=== PATIENT | female | born 1960 | race Caucasian/White ===

== ENCOUNTER 2017-02-27 18:13 | Inpatient (IN) | payer MEDICARE, OTHER ==
--- NOTE | ~2017-02-27 | CO ---
Unit #: [id number] #: [id number] Patient: SIMON BERNSTEIN [id number] [address] [address] [id number] I MR#: [id number] NAME: SIMON BERNSTEIN ROOM: [facility] Age: 57 Sex: F Admission Date: 02/27/2017 : 1960 Attending Physician: Irwin Blake M.D. Primary Care Physician: Edgar Goodrich M.D. CONSULTATION REPORT REASON FOR CONSULTATION Critical care management. CHIEF COMPLAINT Shortness of breath. 57-year-old female with a past medical history of chronic kidney disease, CHF, history of coronary artery disease, LAD has a stent, hypertension, history of chronic cystitis, diabetes mellitus, subarachnoid hemorrhage secondary to aneurysm, back pain, morbid obesity, presents with a complaint of shortness of breath. Was found to have urinary tract infection and CHF exacerbation. Placed on BiPAP. Currently on BiPAP and nitroglycerin drip. I am seeing the patient at bedside, following commands, slightly lethargic. REVIEW OF SYSTEMS Unobtainable because of patient being on BiPAP. PAST MEDICAL HISTORY 1. Hypertension. 2. Chronic kidney disease. 3. Chronic cystitis. 4. History of coronary artery disease. 5. History of subarachnoid hemorrhage. 6. Seizure disorder. 7. Diabetes. 8. Constipation. 9. Back pain. 10. Depression. 11. Morbid obesity. SURGICAL HISTORY 1. Right sided craniotomy. 2. Bilateral tubal ligation. 3. Left shoulder and right shoulder surgery. ALLERGIES No known drug allergies. FAMILY HISTORY Lung cancer, diabetes, hypertension, coronary artery disease. SOCIAL HISTORY Smokes a few cigarettes daily. Does not drink alcohol. Unit #: [id number] #: [id number] Patient: SIMON BERNSTEIN MEDICATIONS 1. Amitiza. 2. Neurontin. 3. Metoprolol. 4. Myrbetriq. 5. Multivitamin. 6. MiraLAX. 7. Aspirin. 8. Plavix. 9. Lasix. 10. Isosorbide. 11. Magnesium. 12. Cymbalta. 13. Esomeprazole. 14. Tradjenta. 15. Claritin. 16. Amlodipine. 17. Calcium. 18. Colace. 19. Alprazolam. 20. Amantadine. 21. Keppra. 22. Zocor. 23. Seroquel. 24. Flomax. 25. Proventil. 26. Percocet. 27. NovoLog. 28. Levemir. PHYSICAL EXAMINATION VITAL SIGNS: Temperature 98, pulse 87, respirations 12, blood pressure 130/70. NEUROLOGICAL: Awake, alert, oriented. No neuro deficit. HEENT: PERRLA. NECK: Supple. No JVD. CHEST: Bilateral air entry, bilateral mild rhonchi. GI: Nontender, soft. Bowel sounds positive. EXTREMITIES: Positive edema. DIAGNOSTIC STUDIES IMAGING: Chest x-ray on admission has shown right sided interstitial and alveolar infiltrates. Findings consistent with acute hypervolemia. LABORATORY: Blood gas - pH of 7.25, pCO2 60, pO2 124, creatinine is 2.7, sodium 135, potassium 4.3. Troponin 0.07, white count 6, hemoglobin 8, hematocrit 28, platelet count 130. ASSESSMENT AND PLAN 1. Acute hypoxic/hypercapnic respiratory failure. 2. Acute exacerbation of congestive heart failure, likely underlying chronic obstructive pulmonary disease. 3. Chronic kidney disease. 4. Sleep apnea. 5. Hypertension. Unit #: [id number] #: [id number] Patient: SIMON BERNSTEIN 6. Rule out myocardial infarction. Plan is to continue patient on BiPAP support and continue oxygen. Continue bronchodilator, GI and DVT prophylaxis. Cardiology consultation. Wean nitroglycerin. Patient will be closely monitored. Please see orders for detailed plan. Thank you very much for the consultation. Will repeat a blood gas and a chest x-ray today. She will need a non-contrast CT of the chest. Thank you very much for this consultation. Dictated by... Linnea Valverde TD: 02/28/2017 12:32 JOB #: [id number] CONSULTATION REPORT Page 1 of 1 X Amanda Duong MD CONSULTATION REPORT
--- NOTE | ~2017-02-27 | CT57 ---
[facility] A Service of [facility] & [facility] RADIOLOGY TEXT RESULTS PATIENT: SIMON BERNSTEIN LOCATION: [address]-19 : [birth year] UNIT #: [id number] AGE: [address]: Irwin Blake MD SEX: F ORDER DR: [id number] [facility] [address] [facility]. [place], [place] [address] [id number] I MR#: [id number] Acc #: [id number] NAME: SIMON BERNSTEIN : 1960 SEX: F STUDY DATE/TIME: 02/28/2017 15:38 UNIT: [facility] ROOM: [facility] STUDY DESCRIPTION: CT Chest Wo Cont Attending Physician: Irwin Blake M.D. Ordering Physician: Amanda Duong M.D. Primary Care Physician: Edgar Goodrich M.D. MEDICAL IMAGING REPORT This report is preliminary unless electronic signature is present EXAM CT of the chest without contrast. HISTORY Chest tightness, short of air since 02/27/17. TECHNIQUE CT of the chest performed without administration of intravenous contrast. No prior CTs of chest for comparison. There are limited views of the lower thorax from CT abdomen pelvis dated 07/12/14. This CT exam was performed with one or more of the following radiation dose reduction techniques: Automatic exposure control, adjustment of mA and/or kV according to patient size, and iterative reconstruction. FINDINGS Thyroid unremarkable. No axillary adenopathy. 1.3 cm short-axis pretracheal node. 9 mm short-axis subcarinal node. Mild cardiac enlargement. Coronary and aortic valvular calcifications. 7 mm short-axis right epiphrenic node. Small bilateral pleural effusions, right greater than left. These are not drainable fluid collections. Visualized liver, gallbladder show no clearly acute abnormality. The liver has a slightly nodular configuration. No focal suspicious abnormality is seen. Correlate with any clinical risk factors for cirrhosis. Very subtle hyperdensity suggested in the partially visualized lower gallbladder segment. This may represent sludge or small gallstone. If clinically warranted, it could be further evaluated with ultrasound. There is no biliary ductal dilatation suggested. The visualized spleen, pancreas, adrenal glands, left kidney notable for what appears to be a partially visualized anterior mid-left renal cyst measuring about 1.9 cm in visualized maximum diameter. Small retrocrural nodes. Small gastrohepatic ligament and portal nodes, largest of the portal nodes is a portocaval node measuring about 1.2 cm in short axis. The lungs show extensive airspace disease in bilateral upper lobes, to a lesser extent in STS. [facility] A Service of [facility] RADIOLOGY TEXT RESULTS PATIENT: SIMON BERNSTEIN LOCATION: [facility]19 : 60 UNIT #: [id number] AGE: [address]: Irwin Blake MD SEX: F ORDER DR: the right middle lobe, and throughout the bilateral lower lobes with some areas of santo airspace consolidation in the inferior right lower lobe. Appearance most suggestive of multifocal tbnsonbi-mn-iusbjz pneumonia. No pneumothorax. No suspicious nodule. There is an incompletely visualized intrathecal catheter, which terminates in the upper thoracic spinal canal. Healing anterior right fifth and sixth and seventh rib fractures. Healing anterior right second rib fracture. Correlate with any known recent trauma. Degenerative changes in the spine but no acute spinal abnormality suggested. IMPRESSION 1. Extensive bilateral airspace disease involving predominantly the bilateral upper lobes and the bilateral lower lobes, with relative sparing of the right middle lobe. Some areas of santo consolidation in the inferior right lower lobe. Appearance suggests multifocal bilateral pneumonia. Follow up to radiographic resolution recommended. 2. Small bilateral pleural effusions. Right greater than left. Not drainable fluid collections. 3. Mediastinal and upper abdominal adenopathy. Favored to be reactive in nature. See solar sales representative locations and sizes in body of report. Attention at followup recommended. 4. Bilateral healing rib fractures. See locations in body of report. No displacement. Correlate with any recent thoracic trauma. 5. Mild cardiac enlargement. 6. Coronary arterial and aortic valvular calcifications. Systemic atherosclerotic arterial calcifications. 7. Slightly nodular contour of the liver. Nonspecific appearance. More pronounced than in 2014. Correlate with any risk factors for cirrhosis. 8. Partial visualization of gallbladder with some questionable high-density material in the gallbladder neck region. This may be artifactual. It could represent gallbladder sludge or tiny gallstone. It could be further evaluated with ultrasound, if felt clinically warranted. 9. Left renal cyst. 10. Not mentioned in body of report, there is subcutaneous fat stranding and haziness in the dependent left lower thoracic/upper abdominal body wall. Nonspecific appearance. No fluid collection. Again, correlate with any known history of trauma. 11. Intrathecal catheter terminating at upper thoracic spine level. Dictated by... Brendon Lee M.D. THIS IS AN ELECTRONICALLY VERIFIED REPORT Brendon Lee M.D. at 03/01/2017 8:13 AM [facility] A Service of [facility] RADIOLOGY TEXT RESULTS PATIENT: SIMON BERNSTEIN LOCATION: [address]19 : [birth year] UNIT #: [id number] AGE: [address]: Irwin Blake MD SEX: F ORDER DR: SEVERO/jaiden TD: 03/01/2017 00:34 JOB #: [id number] MEDICAL IMAGING REPORT Page 1 of 1 COPY
--- NOTE | ~2017-02-27 | EKG ---
PATIENT: SIMON BERNSTEIN UNIT #: [id number] Ventricular Rate: 55 BPM Atrial Rate: 55 BPM P-R Interval: 134 ms QRS Duration: 88 ms Q-T Interval: 458 ms QTC Calculation(Bezet): 438 ms P [place]: 4 degrees Calculated R [place]: 9 degrees Calculated T [place]: -50 degrees Diagnosis Line: Sinus bradycardia Diagnosis Line: Possible Left atrial enlargement Diagnosis Line: Left ventricular hypertrophy Diagnosis Line: Inferior infarct , age undetermined Diagnosis Line: Abnormal ECG Diagnosis Line: When compared with ECG of 01-MAR-2017 05:43, Diagnosis Line: T wave inversion now evident in Lateral leads Diagnosis Line: Confirmed by ULISES IVEY MD ([id number]) on Diagnosis Line: 03/05/2017 3:37:32 PM INTERPRETING MD: EPI
--- NOTE | ~2017-02-27 | CR72 ---
[facility] A Service of [facility] & [facility] RADIOLOGY TEXT RESULTS PATIENT: SIMON BERNSTEIN LOCATION: [facility] 319-01 : [birth year] UNIT #: [id number] AGE: [address]: Lilliam Lynch MD SEX: F ORDER DR: [id number] [facility] [address] [facility]. [place], [place] [address] [id number] I MR#: [id number] Acc #: [id number] NAME: SIMON BERNSTEIN : 1960 SEX: F STUDY DATE/TIME: 02/28/2017 12:59 UNIT: [facility] ROOM: [facility] STUDY DESCRIPTION: CR Chest Single View Portable Attending Physician: Irwin Blake M.D. Ordering Physician: Amanda Duong M.D. Primary Care Physician: Edgar Goodrich M.D. MEDICAL IMAGING REPORT This report is preliminary unless electronic signature is present EXAM Portable chest, 02/28 COMPARISON 02/27/17 HISTORY Congestive heart failure with respiratory failure, follow up. FINDINGS An AP view is obtained. Heart size is enlarged. Pulmonary infiltrates have improved but not cleared completely. Vascular markings remain increased. CONCLUSION Slight decrease in the bilateral pulmonary parenchymal infiltrates compared with the last study. Dictated by... Brendon Harrington M.D. THIS IS AN ELECTRONICALLY VERIFIED REPORT Brendon Harrington M.D. at 03/04/2017 7:15 AM VALENTINA/jaiden TD: 02/28/2017 21:01 JOB #: [id number] MEDICAL IMAGING REPORT Page 1 of 1 COPY
--- NOTE | ~2017-02-27 | US77 ---
[facility] A Service of [facility] & [facility] RADIOLOGY TEXT RESULTS PATIENT: SIMON BERNSTEIN LOCATION: [facility] UNIT #: [id number] AGE: [address]: Lilliam Lynch MD SEX: F ORDER DR: [id number] [facility] [address] [facility]. [place], [place] [address] [id number] I MR#: [id number] Acc #: [id number] NAME: SIMON BERNSTEIN : 1960 SEX: F STUDY DATE/TIME: 02/28/2017 14:41 UNIT: [facility] ROOM: [facility] STUDY DESCRIPTION: US Kidney Bilateral Complete Attending Physician: Irwin Blake M.D. Ordering Physician: Maru Crespo M.D. Primary Care Physician: Edgar Goodrich M.D. MEDICAL IMAGING REPORT This report is preliminary unless electronic signature is present EXAM Bilateral renal ultrasound INDICATIONS Acute kidney insufficiency. COMPARISON 11/04/2013. FINDINGS The patient's right kidney cannot be identified as the patient has a large body habitus. The left kidney is 10.7 cm in length. There is a cyst in the lower pole measuring 4.3 cm in diameter. There is no hydronephrosis. IMPRESSION 1. Left kidney has a 4.3 cm cyst and is normal in size. There is no hydronephrosis. 2. The right kidney cannot be identified. The bladder is empty. Dictated by... Bret Jackson M.D. THIS IS AN ELECTRONICALLY VERIFIED REPORT Bret Jackson M.D. at 03/01/2017 12:39 PM BERTA/sunita TD: 03/01/2017 08:28 JOB #: [id number] MEDICAL IMAGING REPORT [facility] A Service of [facility] & [facility] RADIOLOGY TEXT RESULTS PATIENT: SIMON BERNSTEIN LOCATION: [facility] 60 UNIT #: [id number] AGE: [address]: Lilliam Lynch MD SEX: F ORDER DR: Page 1 of 1 COPY
--- NOTE | ~2017-02-27 | HP ---
Unit #: [id number] #: [id number] Patient: SIMON BERNSTEIN [id number] [address] [place], [place] [address] [id number] I MR#: [id number] NAME: SIMON BERNSTEIN ROOM: [facility] Age: 57 Sex: F Admission Date: 02/27/2017 : 1960 Attending Physician: Irwin Blake M.D. Primary Care Physician: Edgar Goodrich M.D. HISTORY AND PHYSICAL CHIEF COMPLAINT Shortness of breath. DISCUSSION This is a 57-year-old female with a history of multiple medical problems, history of chronic kidney disease, chronic diastolic CHF, history of coronary artery disease status post cath in September 2016, stent to LAD, hypertension, history of chronic cystitis with bladder tumor, diabetes, subarachnoid hemorrhage due to aneurysm requiring craniotomy with persistent left hemiparesis, seizure, depression, chronic back pain, morbid obesity. She currently lives in the custodial. She was sent to the emergency room with a chief complaint of having shortness of breath. She was found to be in respiratory distress, placed on BiPAP in the emergency room. On workup, she was found to have BUN 34, creatinine 2.8, BNP 991. Urine consistent with UTI. Chest x-ray consistent with CHF and eventually has been admitted on BiPAP though she denied chest pain. She denies nausea, vomiting, abdominal pain. She is currently on BiPAP but she is alert, oriented x3, answering all questions. PAST MEDICAL HISTORY 1. History of chronic hypertension. 2. Chronic kidney disease. Creatinine baseline around 1.8. 3. Chronic cystitis with bladder tumor. 4. History of MRSA in the past. 5. History of coronary artery disease with history of past cath in September 2016. Stent to the mid LAD. 6. History of subarachnoid hemorrhage due to aneurysm which ruptured requiring right-sided craniotomy. The patient has a persistent left hemiparesis. 7. History of seizures. 8. History of diabetes. 9. Chronic constipation. 10. Chronic back pain. 11. History of depression. 12. Morbid obesity. PAST SURGICAL HISTORY 1. History of right side craniotomy. 2. History of admission in June 2014, for left retroperitoneal abscess requiring I and D. 3. History of admission October 2013, for inferior pubic ramus fracture and nondisplaced fracture of right acetabulum. 4. The patient also found to have at that time an extraperitoneal bladder rupture requiring radiology placement of drain. Unit #: [id number] #: [id number] Patient: SIMON BERNSTEIN 5. History of bilateral tubal ligation. 6. History of left shoulder/right shoulder surgery. ALLERGIES No known drug allergies. FAMILY HISTORY Positive for coronary artery disease, lung cancer, diabetes, hypertension. SOCIAL HISTORY Patient lives in the custodial. Smokes a few cigarettes daily, does not drink alcohol. MEDICATIONS Medications from custodial as follows: 1. Amitiza 24 mcg daily. 2. Neurontin 100 mg three times daily. 3. Metoprolol tartrate 50 mg b.i.d. 4. Myrbetriq 25 mg daily. 5. Multivitamin daily. 6. MiraLAX 17 g daily. 7. Aspirin 81 mg daily. 8. Plavix 75 mg daily. 9. Lasix 40 mg daily. 10. Isosorbide 60 mg daily. 11. Magnesium 400 mg daily. 12. Cymbalta 60 mg daily. 13. Esomeprazole 20 mg daily. 14. Tradjenta 5 mg daily. 15. Claritin 10 mg daily. 16. Amlodipine 5 mg daily. 17. Calcium acetate 667 mg p.o. three times a day. 18. Colace 100 mg twice a day. 19. Alprazolam 0.25 mg twice a day. 20. Amantadine 100 mg twice daily. 21. Keppra 500 mg p.o. twice daily. 22. Zocor 10 mg daily. 23. Seroquel 200 mg daily. 24. Flomax 0.4 mg daily. 25. Proventil nebulizer q.4 hours p.r.n. 26. Percocet 5/325, half tablet q.6 hours p.r.n. 27. NovoLog 15 units with each meal. 28. Levemir 70 units subcu twice daily. REVIEW OF SYSTEMS Negative except as in History of Presenting Illness. PHYSICAL EXAMINATION GENERAL: Middle aged female, currently on the BiPAP. She is alert, awake, oriented x3, not in any distress. VITAL SIGNS: Temperature 97.4, heart rate 102, respiratory rate 31, blood pressure is 183/90. HEENT: Extraocular muscles intact. Pupils equal, reactive to light and accommodation. NECK: Supple. No JVD. LUNGS: Decreased air entry bilaterally. ABDOMEN: Soft, obese, nontender. EXTREMITIES: Positive 2+ to 3+ edema bilaterally. Unit #: [id number] #: [id number] Patient: SIMON BERNSTEIN NEURO: She is alert, awake, unable to do neuro exam. She is currently in BiPAP. She has chronic left sided weakness which is old. DIAGNOSTIC STUDIES LABORATORY: Current laboratory workup - lactic acid 3.5. UA shows early positive WBCs 25-50. Chemistry - sodium 135, potassium 3.9, chloride 97, glucose 236, BUN 34, creatinine 2.8, magnesium 2.3, BNP 999, troponin less than 0.05, INR is 0.9. CBC - white count 10, hemoglobin 10, hematocrit 33, platelets 184. ABG - pH is 7.25, CO2 60. IMAGING: Chest x-ray consistent with CHF. ASSESSMENT AND PLAN 1. Acute respiratory failure: Place on BiPAP, admit to ICU. 2. Acute on chronic diastolic congestive heart failure: Place on IV Lasix, hold p.o. Lasix. Ask cardiology to evaluate. 3. Urinary tract infection: Start on IV Rocephin. 4. History of coronary artery disease, status post stent to the mid LAD. Continue aspirin and Plavix. 5. Hypotension. 6. Dyslipidemia. 7. Chronic cystitis with bladder tumor. 8. Diabetes, insulin dependent. Continue Levemir and NovoLog. Hold Tradjenta. 9. History of subarachnoid hemorrhage due to aneurysm requiring right sided craniotomy with persistent left hemiparesis. 10. History of seizures. 11. Anxiety/depression. 12. Chronic back pain. 13. Morbid obesity. 14. DVT prophylaxis: Place on SCDs. Avoid Lovenox secondary to history of subarachnoid hemorrhage in the past. Plan is to admit to ICU. Ask also cardiology, nephrology and pulmonary to evaluate. Dictated by Linnea Allen TD: 02/28/2017 09:03 JOB #: [id number] Unit #: [id number] #: [id number] Patient: SIMON BERNSTEIN HISTORY AND PHYSICAL Page 1 of 1 X X HISTORY AND PHYSICAL
--- NOTE | ~2017-02-27 | EKG ---
PATIENT: SIMON BERNSTEIN UNIT #: [id number] Ventricular Rate: 61 BPM Atrial Rate: 61 BPM P-R Interval: 144 ms QRS Duration: 84 ms Q-T Interval: 440 ms QTC Calculation(Bezet): 442 ms P [place]: 23 degrees Calculated R [place]: 37 degrees Calculated T [place]: 15 degrees Diagnosis Line: Normal sinus rhythm Diagnosis Line: Poor R wave progression questionable lead position Diagnosis Line: or body habitus Diagnosis Line: Borderline ECG Diagnosis Line: When compared with ECG of 27-FEB-2017 18:40, Diagnosis Line: Vent. rate has decreased BY 31 BPM Diagnosis Line: ST no longer depressed in Lateral leads Diagnosis Line: T wave inversion no longer evident in Lateral Diagnosis Line: leads Diagnosis Line: Confirmed by FRANCIA EM MD ([id number]) on Diagnosis Line: 03/01/2017 5:51:52 PM INTERPRETING MD: MARS
--- NOTE | ~2017-02-27 | CR72 ---
[facility] A Service of [facility] & [facility] RADIOLOGY TEXT RESULTS PATIENT: SIMON BERNSTEIN LOCATION: [facility] 319-01 : 60 UNIT #: [id number] AGE: [address]: Lilliam Lynch MD SEX: F ORDER DR: [id number] [facility] [address] [facility] [place], [place] [address] [id number] I MR#: [id number] Acc #: [id number] NAME: SIMON BERNSTEIN : 1960 SEX: F STUDY DATE/TIME: 03/01/2017 6:36 UNIT: [facility] ROOM: [facility] STUDY DESCRIPTION: CR Chest Single View Portable Attending Physician: Lilliam Lynch M.D. Ordering Physician: Amanda Duong M.D. Primary Care Physician: Edgar Goodrich M.D. MEDICAL IMAGING REPORT This report is preliminary unless electronic signature is present EXAM Portable chest 03/01/2017 HISTORY CHF. Short of air. FINDINGS AP radiographs of the chest are presented. Comparison to CT examination 02/28/2017 and chest radiograph 02/28/2017. Previously noted rib fracture not readily evident on current study. Please see CT chest for further evaluation. No new acute bony abnormalities suggested. There is stable cardiac enlargement. Underlying pulmonary vascular congestion persists. Extensive bilateral interstitial and airspace densities, not significantly changed. Appearance is relatively symmetric and in keeping with clinical diagnosis of pulmonary edema with interstitial and airspace involvement. Previously seen right pleural effusion on CT examination not evident on current study. No pneumothorax. Evidence of prior coronary artery stenting. Continued follow up until radiographic resolution recommended. Dictated by... Brendon Lee M.D. THIS IS AN ELECTRONICALLY VERIFIED REPORT Brendon Lee M.D. at 03/02/2017 5:16 PM Gregor TD: 03/01/2017 10:41 JOB #: [id number] MEDICAL IMAGING REPORT Page 1 of 1 COPY
--- NOTE | ~2017-02-27 | CR72 ---
[facility] A Service of [facility] & [facility] RADIOLOGY TEXT RESULTS PATIENT: SIMON BERNSTEIN LOCATION: [facility] 319-01 : 60 UNIT #: [id number] AGE: [address]: Lilliam Lynch MD SEX: F ORDER DR: [id number] [facility] [address] [facility]. [place], [place] [address] [id number] I MR#: [id number] Acc #: [id number] NAME: SIMON BERNSTEIN : 1960 SEX: F STUDY DATE/TIME: 02/27/2017 19:03 UNIT: [facility] ROOM: [id number] STUDY DESCRIPTION: CR Chest Single View Portable Attending Physician: Irwin Blake M.D. Ordering Physician: Caitlyn Fowler M.D. Primary Care Physician: Edgar Goodrich M.D. MEDICAL IMAGING REPORT This report is preliminary unless electronic signature is present EXAM Portable chest 02/27/2017 COMPARISON 10/21/2016 HISTORY Short of air today. FINDINGS Extensive right slightly greater than left bilateral primarily interstitial and lesser alveolar infiltrate. No pneumothorax or effusion. Heart size probably upper limits normal. Findings suggest likely acute hypervolemia or less likely congestive failure or less likely acute infectious or inflammatory change. Dictated by... Abner Marquez M.D. THIS IS AN ELECTRONICALLY VERIFIED REPORT Abner Marquez M.D. at 03/09/2017 4:01 PM TEV/rnr TD: 02/28/2017 03:42 JOB #: [id number] MEDICAL IMAGING REPORT Page 1 of 1 COPY
--- NOTE | ~2017-02-27 | EKG ---
PATIENT: SIMON BERNSTEIN UNIT #: [id number] Ventricular Rate: 92 BPM Atrial Rate: 92 BPM P-R Interval: 136 ms QRS Duration: 88 ms Q-T Interval: 362 ms QTC Calculation(Bezet): 447 ms P [place]: 15 degrees Calculated R [place]: 17 degrees Calculated T [place]: 172 degrees Diagnosis Line: Normal sinus rhythm Diagnosis Line: Marked ST abnormality, possible lateral Diagnosis Line: subendocardial injury Diagnosis Line: Abnormal ECG Diagnosis Line: When compared with ECG of 22-OCT-2016 09:07, Diagnosis Line: No significant change was found Diagnosis Line: Confirmed by ETIENNE REIS MD ([id number]) on 02/28/2017 Diagnosis Line: 4:47:51 PM INTERPRETING MD: SMILEY SCHWARTZ
--- NOTE | ~2017-02-27 | CO ---
Unit #: [id number] #: [id number] Patient: SIMON BERNSTEIN [id number] [facility]. [place], [place] [address] [id number] I MR#: [id number] NAME: SIMON BERNSTEIN ROOM: [facility] Age: 57 Sex: F Admission Date: 02/27/2017 : 1960 Attending Physician: Irwin Blake M.D. Primary Care Physician: Edgar Goodrich M.D. Consultation Date: 02/28/2017 CONSULTATION REPORT REASON FOR CONSULTATION Congestive heart failure. HISTORY OF PRESENT ILLNESS The patient is a 57-year-old woman who is known to [facility]. In October of 2016, she had a cardiac catheterization per Dr. Maradiaga. At that time, her left main was still normal. Her proximal LAD was normal. She did have 80% to 90% stenosis and did undergo PCI and stent. Her left circumflex showed no significant stenosis. He RCA showed multiple 90% lesions before the origin of the acute right ventricular branch which, itself, is normal. Distal to acute right ventricular branch of the RCA is occluded. Post LV branch of the PDA filled by retrograde left to right collaterals. Ramus was 75% to 80% cross sectional area of reduction about 10 mm distal to its origin and the distal two thirds of the artery was normal. Also at that time, she had an echo which showed an LVEF of 50% to 55%, mild concentric LVH, mild MR and TR. A small pericardial effusion versus fat tissue was noted. The patient also reports, after she was seen by Dr. Maradiaga after she was discharged from the hospital back in September of 2016 for her cardiac cath, she did develop she did develop chest pain and did go into [facility] and underwent a cardiac catheterization. The patient reports that she got two stents at that time. Details are unknown. Records have been requested. PAST MEDICAL HISTORY Includes: 1. Hypertension. 2. Hyperlipidemia. 3. Diabetes type 2. 4. Chronic kidney disease with a baseline of 1.8. 5. Tobaccoism. 6. The patient has a history of a ruptured aneurysm requiring a right sided craniotomy about seven years ago resulting in subarachnoid hemorrhage and residual left sided weakness. She is a alf resident at [facility]. The patient was sent to the emergency room with a chief complaint of shortness of breath. She was found to be in respiratory distress and placed on BiPAP in the emergency room. Upon workup, she was found to have a BUN of 34, creatinine of 1.8. Her BNP was 991. Her urine was found to be consistent with a urinary tract infection. Chest x-ray showed findings consistent with CHF. The patient does endorse, again, shortness of breath, cough and weakness but denies any chest pain. She also denies any nausea, vomiting, fever or chills. Unit #: [id number] #: [id number] Patient: SIMON BERNSTEIN PAST MEDICAL HISTORY 1. Cardiac cath October 21, 2016, with Dr. Maradiaga. a) Left main normal. b) LAD proximal normal, mid LAD 80% to 90% stenosis status post Synergy stent. c) Left circumflex shows no significant stenosis. d) RCA - multiple 90% to 95% lesions with further origin of acute right ventricular branch which, itself, is normal distal to acute right ventricular branch of the RCA is occluded post LV branch and PDA filled by retrograde left to right collaterals. e) Ramus 75% to 80% cross sectional area of reduction about 10 mm distal to its origin with distal two thirds of the artery being normal. 2. Cardiac cath in October or November of 2016 at [facility], details unknown. Reportedly, two stents. 3. 2D echocardiogram from October 20, 2016, showed mild concentric LVH, mild MR and TR. Small pericardial effusion versus status tissue and an EF of 50% to 55%. 4. Hypertension. 5. Hyperlipidemia. 6. Diabetes type 2. 7. Chronic kidney disease. 8. Chronic diastolic CHF. 9. History of seizure disorder. 10. History of MRSA in 2013. 11. History of ruptured aneurysm with right sided craniotomy seven years ago with subarachnoid hemorrhage and residual left sided weakness. 12. Reformed tobaccoism. 13. Resident at [facility]. PAST SURGICAL HISTORY 1. Right sided craniotomy. 2. Cardiac cath. 3. I and D of retroperitoneal abscess in June 2014. 4. October 2013, inferior pubic ramus fracture and nondisplaced fracture of right acetabulum. 5. October 2013, extraperitoneal bladder rupture requiring drain placement. 6. History of bilateral tubal ligation. 7. History of left and right shoulder surgery. ALLERGIES No known allergies. RESIDENTIAL MEDICATIONS 1. Amitiza 24 mcg p.o. daily. 2. Neurontin 100 mg p.o. t.i.d. 3. Metoprolol tartrate 50 mg p.o. b.i.d. 4. Myrbetriq 25 mg p.o. daily. 5. Multivitamin, one tab p.o. daily. 6. MiraLAX 17 grams p.o. daily. 7. Aspirin 81 mg p.o. daily. 8. Plavix 75 mg p.o. daily. 9. Furosemide 40 mg p.o. daily. 10. Isosorbide mononitrate ER 60 mg p.o. daily. 11. Magnesium oxide 400 mg p.o. daily. 12. Cymbalta 60 mg p.o. daily. 13. Esomeprazole 20 mg p.o. daily. Unit #: [id number] #: [id number] Patient: SIMON BERNSTEIN 14. Tradjenta 5 mg p.o. daily. 15. Claritin 10 mg p.o. daily. 16. Amlodipine 5 mg p.o. daily. 17. Calcium acetate 667 mg p.o. three times daily. 18. Docusate sodium 100 mg p.o. b.i.d. 19. Xanax 0.25 mg p.o. b.i.d. 20. Amantadine 100 mg p.o. b.i.d. 21. Keppra 500 mg p.o. b.i.d. 22. Simvastatin 10 mg p.o. daily. 23. Quetiapine 200 mg p.o. daily. 24. Flomax 0.4 mg p.o. daily. 25. Proventil, one amp inhalation every four hours p.r.n. shortness of breath. 26. Percocet 5/325 mg, one to two tabs p.o. every six hours p.r.n. pain. 27. NovoLog 15 units subcu with meals. 28. Levemir 70 units subcu b.i.d. FAMILY HISTORY Positive for coronary artery disease, lung cancer, diabetes and hypertension. SOCIAL HISTORY The patient lives at [facility]. She reports that she quit smoking three months ago. She does not drink alcohol and denies illicit drug abuse. REVIEW OF SYSTEMS A ten point review of systems has been and considered otherwise negative except as indicated in the HPI. PHYSICAL EXAMINATION GENERAL: The patient is awake, alert, in no acute distress. She has been taken off of her BiPAP and placed on 6 L nasal cannula. VITAL SIGNS: Temperature 98.5, heart rate 81, respirations 14, blood pressure 162/87. She is oxygenating 100%. HEENT: Head is atraumatic, normocephalic. Pupils equal, round, reactive. Extraocular movements are intact. No drainage from ears or nares. NECK: Supple. Trachea is midline. Negative JVD. Normal carotid upstrokes. No thyromegaly or lymphadenopathy is appreciated. CHEST: Lungs have crackles bilaterally and expiratory wheezes. No rhonchi. CARDIOVASCULAR: S1, S2. Regular rate and rhythm. No murmurs, rubs or gallops appreciated. ABDOMEN: Soft, nontender, nondistended. Bowel sounds are positive in all four quadrants. No hepatosplenomegaly is appreciated. SKIN: Appears to be warm, dry and intact without any unusual rashes or lesions. EXTREMITIES: No clubbing or cyanosis. The patient has positive edema in her lower extremities. NEUROLOGIC: The patient is alert and oriented x2. She is conversant. No focal defects. DIAGNOSTIC STUDIES IMAGING: Chest x-ray shows extensive, right slightly greater than left, bilateral primarily interstitial and lesser alveolar infiltrates. No pneumothorax or effusion. Heart size is probably upper limits of normal. Findings suggest likely acute hypervolemia or less likely congestive heart failure or less likely acute infectious or inflammatory change. Unit #: [id number] #: [id number] Patient: SIMON BERNSTEIN LABORATORY: White blood cells 6.2, hemoglobin 8.9, hematocrit 28.1, platelets 130, sodium 135, potassium 4.3, chloride 97, CO2 30, BUN 35, creatinine 2.7, glucose 182. Lactic acid was 3.5 on admission, now 1.4. BNP is 999. ASSESSMENT 1. Acute on chronic diastolic congestive heart failure and left ventricular function of 50% to 55%. 2. Acute hypoxic respiratory failure. 3. Coronary artery disease, status post stent to the left anterior descending in October 2016, also reportedly two more stents at [facility]. Details unknown. 4. Hypertension. 5. Hyperlipidemia. 6. Acute on chronic kidney disease. 7. Diabetes. 8. Seizure disorder. 9. History of subarachnoid hemorrhage with left sided residual. 10. Morbid obesity. 11. Recent pneumonia. PLAN Will check a BMP and mag in the morning. Will ask nursing to obtain laboratory apparatus glass blower report from [facility] from October or November of 2016. At this time, will trend cardiac enzymes and troponin q.6 hours x3. Will start now. Will check an EKG in the morning. Have nursing place cath report and echo report from [facility] from September or October of [address] the patient on strict I's and O's, 1800 mL fluid restriction and have daily weights. Agree with continuing patient's home cardiac medications and agree with IV diaphoresis. Dr. Maradiaga to see the patient. Further recommendations will be made. Dictated by... Cyndie Blake A.P.R.N. AM/joanna TD: 02/28/2017 15:39 JOB #: [id number] CONSULTATION REPORT Page 1 of 1 X Cyndie Blake APRN X CONSULTATION REPORT
--- NOTE | ~2017-02-27 | DS ---
Unit #: [id number] #: [id number] Patient: SIMON BERNSTEIN [id number] [address] [place], [place] [address] [id number] MR#: [id number] NAME: SIMON BERNSTEIN ROOM: 319 Age: 57 Sex: F Admission Date: 02/27/2017 : 1960 Discharge Date: 03/03/2017 Attending Physician: Lilliam Lynch M.D. Primary Care Physician: Edgar Goodrich M.D. DISCHARGE SUMMARY PLACE OF DISCHARGE Return to shelter for long-term care. HISTORY OF PRESENT ILLNESS/HOSPITAL COURSE Patient was originally admitted secondary to dyspnea. She is a very pleasant, 57-year-old female with a history of chronic kidney disease, chronic diastolic heart failure, prior history of coronary artery disease with stents in the past, as well as a history of subarachnoid hemorrhage due to aneurysm requiring craniotomy who resides in a long-term shelter. She was sent to the emergency department secondary to increased level of shortness of breath. She was found to be in respiratory distress on admission and placed on BiPAP in the emergency room. She was noted to have an elevated creatinine of 2.8, BNP of 991, and her admission urinalysis was positive. Chest x-ray was consistent with CHF. Subsequently, secondary to requirement for (1) BiPAP as well as poor respiratory status, consultation was placed to Dr. Willis and Dr. Duong and allyn. Patient was placed in the ICU. She received BiPAP support. She was placed on IV Solu-Medrol, IV antibiotics, and aerosols and she was gradually weaned to O2 via nasal cannula to where she currently is at the present time. She also underwent a CT chest without contrast on 02/28/2017. It did reveal extensive bilateral airspace disease. Some areas of santo consolidation were also noted in the inferior right lower lobe. Multifocal pneumonia was a definite consideration. From a respiratory standpoint, she has been transitioned to p.o. prednisone and p.o. antibiotics and she is now deemed to be stable and improved and currently back to her baseline O2 and is stable for transition back to shelter. In regards to her acute kidney injury, consultation was placed to Dr. Belle and associates for evaluation. Her baseline creatinine is approximately 2.5-2.8. Dr. Belle has stated the patient should have BMP and CBC in approximately two weeks post discharge. Patient to follow up with Dr. Michaud in approximately 2-3 weeks post discharge as well. Patient will follow up with Dr. Duong in approximately two weeks as well. Patient appears stable to be transitioned back to long-term shelter for ongoing care. At time of discharge, baseline creatinine is approximately 2.6. CBC shows a baseline hemoglobin of approximately 8-9. Please note patient's blood cultures as well as urine culture did not show Unit #: [id number] #: [id number] Patient: SIMON BERNSTEIN any acute bacterial growth through hospital course. FINAL DISCHARGE DIAGNOSES 1. Dyspnea; multifactorial in origin secondary to diastolic heart failure, chronic obstructive pulmonary disease exacerbation, multifocal pneumonia, and chronic deconditioning. 2. Chronic kidney disease. Baseline creatinine 2.6-2.8. 3. Chronic diastolic heart failure. 4. Coronary artery disease with recent cardiac catheterization September 2016, status post stent to left anterior descending. 5. Hypertension. 6. Prior history of bladder tumor with resection. 7. Diabetes. 8. Prior history of subarachnoid hemorrhage. 9. Prior history of craniotomy. 10. Left hemiparesis baseline. 11. Chronic immobility syndrome. 12. Seizure disorder. 13. Depression. 14. Chronic back pain. 15. Severe morbid obesity. 16. Major depressive disorder. FINAL DISCHARGE MEDICATIONS 1. DuoNeb aerosol solution q.6 hours scheduled. 2. Medrol Dosepak take as directed. 3. Flomax 0.4 mg p.o. every day. 4. Mag. ox. 100 mg p.o. every day. 5. Neurontin 100 mg p.o. q.8. 6. Keppra 500 mg p.o. b.i.d. 7. Cymbalta 60 mg p.o. every day. 8. Claritin 10 mg p.o. every day. 9. SEROquel 200 mg p.o. q.h.s. 10. Amantadine 100 mg p.o. b.i.d. 11. Xanax 0.25 mg p.o. b.i.d. p.r.n. 12. Norvasc 10 mg p.o. every day. 13. Lopressor 50 mg p.o. b.i.d. 14. Senokot S 1 tablet p.o. b.i.d. 15. MiraLAX 17 g mixed in 8 ounces of water, drink daily. 16. Tradjenta 5 mg p.o. every day. 17. Lasix 40 mg p.o. b.i.d. 18. Myrbetriq 25 mg p.o. every day. 19. Zocor 10 mg p.o. q.h.s. 20. Levemir 70 units b.i.d. 21. NovoLog 15 units t.i.d. with meals. 22. NovoLog low dose sliding scale with insulin Accu-Cheks q.a.c. and q.h.s. 23. Multivitamin daily. 24. Aspirin 81 mg p.o. every day. 25. Percocet 5/325 one tablet p.o. b.i.d. p.r.n. 26. Plavix 75 mg p.o. every day. 27. Amitiza 24 mcg p.o. every day. 28. Nexium 40 mg p.o. every day. 29. PhosLo 667 mg p.o. t.i.d. with meals. 30. Imdur 60 mg p.o. every day. 31. Zithromax 500 mg p.o. x1 dose on 03/04/2017. DISCHARGE CONDITION Unit #: [id number] #: [id number] Patient: SIMON BERNSTEIN. DISCHARGE DISPOSITION [facility] for ongoing care. Dictated by... Linnea Noland/shantell TD: 03/03/2017 11:36 JOB #: [id number] DISCHARGE SUMMARY Page 1 of 1 X Lilliam Lynch MD X DISCHARGE SUMMARY
--- NOTE | ~2017-02-27 | CO ---
Unit #: [id number] #: [id number] Patient: YOKASTA BERNSTEIN [id number] [address] [place], [place] [address] [id number] MR#: [id number] NAME: YOKASTA BERNSTEIN ROOM: 319 Age: 57 Sex: F Admission Date: 02/27/2017 : 1960 Attending Physician: Lilliam Lynch M.D. Primary Care Physician: Edgar Goodrich M.D. CONSULTATION REPORT REASON FOR CONSULTATION Acute on stage 3 chronic kidney disease. HISTORY OF PRESENT ILLNESS Ms. Yokasta Bernstein is a patient of my partner, Dr. Michaud, who has stage 3 chronic kidney disease on the basis of diabetes, hypertension, and former heavy NSAID use. Her baseline creatinine is 1.8. It was last at that level at this institution on 10/2016. She has been at a subacute rehab due to stroke with left-sided weakness. This week, she noticed worsening edema and shortness of breath, and was sent to the emergency room. Her BUN and creatinine are noted to be markedly worse with at 34 and 2.8. Her chest x-ray is consistent with heart failure. She has been sent to the ICU. She is on a BiPAP and she is receiving IV diuretic. PAST MEDICAL HISTORY 1. Stage 3 chronic kidney disease with a baseline of 1.8, followed by Dr. Michaud in the office. 2. History of chronic cystitis with a bladder tumor, unspecified. 3. Hypertension. 4. Diabetes. 5. Coronary artery disease with history of stent to the mid LAD after a myocardial infarction on 09/2016. Leonor saw her at that time. 6. History of subarachnoid hemorrhage due to aneurysm with right-sided craniotomy. The patient has left-sided weakness. 7. History of seizures. 8. Obesity. 9. Chronic constipation. 10. History of kidney abscess with drainage. PAST SURGICAL HISTORY 1. Right-sided craniotomy. 2. Left retroperitoneal abscess requiring incision and drainage. 3. History of admission for inferior pubic ramus fracture and nondisplaced fracture of the right acetabulum. 4. History of extraperitoneal bladder rupture requiring drain placement. FAMILY HISTORY Positive for coronary artery disease. SOCIAL HISTORY The patient lives in a senior care. She still smokes cigarettes daily. She does not drink. MEDICINES Unit #: [id number] #: [id number] Patient: YOKASTA BERNSTEIN Home medicines include Levemir, NovoLog, Percocet, Flomax, Seroquel, Zocor, Keppra, amantadine, alprazolam, PhosLo, amlodipine, Claritin, Tradjenta, esomeprazole, Cymbalta, magnesium, isosorbide, Lasix, Plavix, aspirin, MiraLAX, Myrbetriq, metoprolol, Neurontin, Amitiza. Current medicines include Lipitor, Zithromax, Solu-Medrol, Flomax, Seroquel, Norvasc, Claritin, Protonix, Cymbalta, magnesium oxide, Imdur, Plavix, aspirin, MiraLAX, Myrbetriq, Amitiza, Keppra, Symmetrel, Xanax, Lopressor, furosemide 40 mg IV q.12 hours, insulin, PhosLo, Neurontin, Percocet, Protonix, Rocephin, and Combivent. REVIEW OF SYSTEMS Currently, the patient says she is breathing better. She has been wearing the BiPAP. She denies eye drainage, headache, or blurry vision. No nausea, vomiting, or diarrhea. No chest pain. She did have dyspnea on exertion and worsening resting dyspnea. She had increasing pedal edema. She had not been taking any NSAIDs. Other 13 systems reviewed, unless noted are negative. PHYSICAL EXAMINATION VITAL SIGNS: Her blood pressure is ranging between 99/46 to 120/65, temperature 98.2, and heart rate is 65. Is and Os have not been recorded. She has clear yellow urine in her Carlos. GENERAL: This is an obese white female, in no acute distress. She has some left-sided weakness. HEENT: Extraocular muscles are intact. No eye drainage or icterus. Oropharynx is clear without lesion. NECK: Obese, supple, with no lymphadenopathy or JVD. No carotid bruit auscultated. CHEST: Shows diminished breath sounds in the bases. Poor effort. CARDIAC: S1 and S2. Normal sinus rhythm. No gallop or rub. ABDOMEN: Obese, soft, nontender, and nondistended. Positive bowel sounds. EXTREMITIES: No cyanosis or clubbing. She does have 2+ pitting edema. DIAGNOSTIC STUDIES Laboratory data: Urinalysis shows 1+ protein, leukocytes 2+, blood 2+, white blood cell count 5 to 10, rbc's 10 to 25. ABG shows a pH of 7.35, pCO2 of 60, pO2 of 174, and bicarbonate 33. Chemistry shows sodium 135, potassium 4.3, chloride 97, bicarbonate 30, BUN 35, creatinine 2.7, glucose 182, calcium 8.8, magnesium 2.3, and albumin 3.3. White blood cell count 6.2, hemoglobin is 8.9, and platelet count 130. ASSESSMENT AND PLAN 1. Acute kidney injury, likely related to congestive heart failure. Agree with IV diuretic. Her blood pressure is on the low side so we will have to diurese gently. With her long history of recurrent cystitis and bladder issues, I will check a renal ultrasound. Her urinalysis is consistent with a urinary tract infection and she is on Rocephin. 2. Respiratory failure with elevated pCO2. She is on the BiPAP. 3. History of diastolic dysfunction. Cardiology is following. 4. Coronary artery disease, status post stent to the mid LAD in 09/2016. 5. Chronic cystitis. 6. History of subarachnoid hemorrhage due to aneurysm requiring right-sided craniotomy with persistent left hemiparesis. 7. Chronic kidney disease, stage 3 with baseline creatinine of 1.8. Etiology was thought to be hypertension, diabetes, and NSAIDs. Creatinine last at baseline in 10/2016. Thank you very much for allowing me to see Ms. Gupta in consultation. We will follow closely with you. Unit #: [id number] #: [id number] Patient: YOKASTA BERNSTEIN Dictated by... Maru Crespo M.D. JULIEN/sonal TD: 03/01/2017 13:07 JOB #: [id number] CONSULTATION REPORT Page 1 of 1 X Maru Crespo MD CONSULTATION REPORT
[~2017-02-27 18:13] MED LIST: ABILIFY5 MG PO; ACETAMINOPHEN PO; ACETAMINOPHEN325 MG PO; ACETAMINOPHEN650 M3 PO; ADALATCC PO; ALBUTEROL MININEB NEB; ALLEGRA-D1 TAB.SR1 PO; ALOE VESTA TP; ALOE VESTA226 GM TP; ALOE VESTA56 GM TP; ALPRAZOLAM PO; ALPRAZOLAM0.25 MG PO; AMANTADINE HCL100 MG PO; AMANTADINE100 M1 PO; AMARYL PO; AMARYL1 MG PO; AMARYL2 MG PO; AMBIEN PO; AMITIZA24 MCG PO; AMOXICILLIN875 MG PO; ANTI-DIARRHEAL2 M1 PO; ARTIFICIAL TEA1 EACH OP; AUGMENTIN1 TAB.SR1 PO; BACLOFEN10 MG PO; BIOFREEZE118 ML TP; BISA-LAX10 MG/SUP1 PR; CALCIUM ACETAT667 M1 PO; CARAFATE1 G PO; CARAFATE1 GM PO; CERTAGEN PO; CERTAVITE W/LUT1 TA1 PO; CHLORTHALIDONE25 MG PO; CIPRO PO; CLARITIN10 M3 PO; COLACE PO; CYMBALTA PO; DISCONTINUED MED; DOCU SOFT100 M1 PO; DULCOLAX10 MG/SUPP RC; DULOXETINE HCL60 M1 PO; DULOXETINE HCL60 MG PO; FERRO-TIME325 MG PO; FLEXERIL10 MG PO; FLOMAX0.4 M1 PO; FLUID RESTRICTION; GABAPENTIN400 M2 PO; GABAPENTIN600 MG PO; GABAPENTIN800 MG PO; HUMALOG100 U/M1 SUBQ; HUMIRA40 MG/0.1 SUBQ; HYDROCODON-ACE1 EAC7 PO; HYDROCODONE-APA1 T56 PO; HYDROCODONE/APA1 T15 PO; HYDROCORTISONE30 G1 EXT; HYDROXYZINE HCL25 M1 PO; HYDROXYZINE PAM25 MG PO; IRON325 ( 651 PO; JANUVIA25 MG PO; KEPPRA500 M2 PO; KEPPRA500 MG PO; KLONOPIN0.5 MG PO; LANTUS100 UNITS/ SUBQ; LAXATIVE PO; LEVEMIR100 UNITS/ SUBQ; LEVETIRACETAM500 M1 PO; LEXAPRO PO; LISINOPRIL PO; LOPRESSOR PO; LORCET PLUS TAB1 TAB PO; MAGIC BUTT CREAM TOP; MAGIC BUTT CREAM TP; MAGIC BUTT TD; MAJOR-PREP HEMO57 G1 PR; METOPROLOL TAR25 MG PO; METOPROLOL TART25 MG PO; MI-ACID, M355 ML/SU1 PO; MILK OF MAGNESIA PO; MIRALAX17 G2 PO; MIRALAX17 GM PO; MYRBETRIQ25 MG PO; MYRBETRIQ50 MG PO; NEOMYCI/POLY/GR10 ML OP; NEURONTIN PO; NEURONTIN100 MG PO; NEURONTIN800 MG PO; NEXIUM 24HR20 MG PO; NEXIUM PO; NEXIUM20 MG PO; NICOTINE T1 PATCH .2 TOP; NITROSTAT0.4 MG SL; NORVASC PO; NORVASC10 MG PO; NOVOLOG FL100 UNIT/1 SUBQ; NOVOLOG100 U/M2 SUBQ; NOVOLOG100 U/ML SUBQ; NYSTAT-RX8 GM MC; NYSTATIN1 EACH TOP; OCEAN45 ML; ONDANSETRON ODT4 MG PO; OYSTER CALCIUM500 MG PO; PERCOCET 5-3251 TAB PO; PERCOCET 5/321 UDTAB PO; PHENERGAN25 MG PO; PHENTERMINE PO; PRILOSEC20 MG PO; PROTONIX PO; QUETIAPINE FUM100 MG PO; QUETIAPINE FUM200 MG PO; REMERON SOLTAB15 M1 PO; RIOMET500 MG/51 PO; ROCEPHIN1 G/VIA1 IV; SANTYL15 G1 TP; SENEXON-S TABL1 EACH PO; SENNA CONCENTR8.6 MG PO; SENNA8.6 M1 PO; SEROQUEL PO; SEROQUEL300 MG PO; SEROQUEL50 M1 PO; SYMMETREL100 M1 PO; TRADJENTA5 MG PO; TRIMPEX100 MG PO; TUSSIN100 MG/51 PO; TYLENOL325 M1 PO; VICTOZA0.6 MG/0.1 SUBQ; ZOCOR-BORROW, D10 MG PO; ZOFRAN ODT4 MG PO; [UNRECOGNIZED DRUG - OTHER] MC
[2017-02-27 18:29] LABS: ARTERIAL BLD GAS O2 SATURATION 96.3 % (90.0-100.0); ARTERIAL BLOOD GAS ALLEN TEST NORMAL; ARTERIAL BLOOD GAS ART SITE RIGHT RADIAL; ARTERIAL BLOOD GAS CARBOXY HB 1.2 %sat (0.0-9.0); ARTERIAL BLOOD GAS HCO3 26.7 mmol/L; ARTERIAL BLOOD GAS MET HB 0.9 %sat (0.0-2.0); ARTERIAL BLOOD GAS pH 7.257 (7.350-7.450); ARTERIAL DRAW? YES
[2017-02-27 18:39] LABS: BASOPHIL# 0.1 X10e3 (0-0.3); BASOPHIL% 0.5 % (0-2.5); DIFF IND NO; EOSINOPHIL# 0.3 X10e3 (0-0.7); EOSINOPHIL% 2.5 % (0.0-7.0); HEMATOCRIT 33.3 % (35.0-45.0); HEMOGLOBIN 10.5 gm/dL (12.0-16.0); LYMPHOCYTE# 1.8 X10e3 (1.0-3.5); LYMPHOCYTE% 16.4 % (17.0-45.0); MEAN CELL VOLUME 89.6 FL (83-96); MEAN CORPUSCULAR HEMOGLOBIN 28.2 PG (28-34); MEAN CORPUSCULAR HGB CONC 31.5 g/dL (30-36); MEAN PLATELET VOLUME 8.3 FL (6.5-11.5); MONOCYTE# 0.8 X10e3 (0-1.0); MONOCYTE% 7.9 % (3.0-12.0); NEUTROPHIL# 7.8 X10e3 (1.5-7.1); NEUTROPHIL% 72.7 % (40-75); PLATELET COUNT 184 X10e3 (140-420); RED BLOOD COUNT 3.71 X10e (3.90-5.30); RED CELL DISTRIBUTION WIDTH 16.9 % (11.0-15.5); WHITE BLOOD COUNT 10.7 X10e3 (4.0-10.5)
[2017-02-27 18:49] LABS: INR 0.9; PARTIAL THROMBOPLASTIN TIME 25.1 SECONDS (23.5-31.3); PROTHROMBIN TIME (PATIENT) 9.5 SECONDS (9.6-11.5)
[2017-02-27 18:50] LABS: URINE SOURCE CLEAN CATCH
[2017-02-27 18:53] LABS: POC - CKMB 7.7 ng/mL (0.0-7.9); POC - TROPONIN <0.05 ng/mL (<=0.05)
[2017-02-27 18:55] LABS: URINE APPEARANCE CLEAR; URINE BILIRUBIN NEG (NEG); URINE BLOOD 2+ (NEG); URINE COLOR YELLOW; URINE GLUCOSE 100 MG/DL (NEG); URINE KETONE NEG (NEG); URINE LEUKOCYTE ESTERASE 2+ (NEG); URINE NITRATE NEG (NEG); URINE PROTEIN 1+ (NEG); URINE SPECIFIC GRAVITY 1.011 (1.003-1.035); URINE UROBILINOGEN 0.2 MG/DL (NEG)
[2017-02-27 18:57] LABS: CULTURE INDICATED? YES; URINE BACTERIA AUWI NEG (NEGATIVE); URINE SQUAMOUS EPITHELIAL CELL MOD /[HPF]; UWBCS1 AUWI 25-50 (0-5)
[2017-02-27 18:59] LABS: ALBUMIN SERUM 3.3 g/dL (3.5-5.0); BILIRUBIN, DIRECT 0.1 mg/dL (0.0-0.2); BILIRUBIN,INDIRECT 0.6 mg/dL (0.0-0.9); BILIRUBIN,TOTAL 0.7 mg/dL (0.2-2.0); BUN/CREATININE RATIO 12.14; CALCIUM SERUM 8.9 mg/dL (8.4-10.2); CREATININE SERUM 2.8 mg/dL (0.6-1.4); MAGNESIUM 2.3 mg/dL (1.6-3.0); POTASSIUM 3.9 mmol/L (3.5-5.1); PROTEIN TOTAL SERUM 8.6 g/dL (6.0-8.3)
[2017-02-27 19:01] LABS: U HYALINE CASTS AUWI 0-2 /[LPF]
[2017-02-27] MEDS ORDERED: AMITIZA24 MCG PO (19:37)
[2017-02-27] MEDS ORDERED: NEURONTIN100 MG PO (19:38)
[2017-02-27] MEDS ORDERED: MYRBETRIQ25 MG PO (19:40)
[2017-02-27] MEDS ORDERED: METOPROLOL TART25 MG PO (19:40)
[2017-02-27] MEDS ORDERED: CLOPIDOGREL75 MG PO (19:41)
[2017-02-27] MEDS ORDERED: ASPIRIN81 M2 PO (19:41)
[2017-02-27] MEDS ORDERED: CEROVITE SENIO1 EACH PO (19:41)
[2017-02-27] MEDS ORDERED: MIRALAX17 GM PO (19:41)
[2017-02-27] MEDS ORDERED: DULOXETINE HCL60 MG PO (19:42)
[2017-02-27] MEDS ORDERED: DIASENSE MAGNE400 MG PO (19:42)
[2017-02-27] MEDS ORDERED: ISOSORBIDE MONO60 M1 PO (19:42)
[2017-02-27] MEDS ORDERED: FUROSEMIDE40 MG PO (19:42)
[2017-02-27] MEDS ORDERED: TRADJENTA5 MG PO (19:43)
[2017-02-27] MEDS ORDERED: ESOMEPRAZOLE MA20 MG PO (19:43)
[2017-02-27] MEDS ORDERED: CLARITIN10 M3 PO (19:44)
[2017-02-27] MEDS ORDERED: DOC-Q-LACE100 MG PO (19:48)
[2017-02-27] MEDS ORDERED: CALCIUM ACETAT667 M2 PO (19:48)
[2017-02-27] MEDS ORDERED: AMLODIPINE BESYL5 MG PO (19:48)
[2017-02-27] MEDS ORDERED: AMANTADINE100 M1 PO (19:49)
[2017-02-27] MEDS ORDERED: ALPRAZOLAM0.25 MG PO (19:49)
[2017-02-27] MEDS ORDERED: QUETIAPINE FUM200 MG PO (19:50)
[2017-02-27] MEDS ORDERED: FLOMAX0.4 M1 PO (19:50)
[2017-02-27] MEDS ORDERED: KEPPRA500 M1 PO (19:50)
[2017-02-27] MEDS ORDERED: ZOCOR10 MG PO (19:50)
[2017-02-27] MEDS ORDERED: ALBUTEROL 0.5ML INH (19:51)
[2017-02-27] MEDS ORDERED: PERCOCET5/325 PO (19:52)
[2017-02-27] MEDS ORDERED: NOVOLOG100 UNIT/1 SUBQ (19:53)
[2017-02-27] MEDS ORDERED: LEVEMIR SUBQ (19:54)
[2017-02-28 06:50] LABS: BASOPHIL% 0.4 % (0-2.5); EOSINOPHIL# 0.2 X10e3 (0-0.7); EOSINOPHIL% 2.5 % (0.0-7.0); HEMATOCRIT 28.1 % (35.0-45.0); HEMOGLOBIN 8.9 gm/dL (12.0-16.0); LYMPHOCYTE# 0.8 X10e3 (1.0-3.5); LYMPHOCYTE% 12.9 % (17.0-45.0); MEAN CELL VOLUME 88.4 FL (83-96); MEAN CORPUSCULAR HEMOGLOBIN 27.9 PG (28-34); MEAN CORPUSCULAR HGB CONC 31.6 g/dL (30-36); MEAN PLATELET VOLUME 7.8 FL (6.5-11.5); MONOCYTE# 0.7 X10e3 (0-1.0); MONOCYTE% 11.1 % (3.0-12.0); NEUTROPHIL# 4.5 X10e3 (1.5-7.1); NEUTROPHIL% 73.1 % (40-75); PLATELET COUNT 130 X10e3 (140-420); RED BLOOD COUNT 3.18 X10e (3.90-5.30); RED CELL DISTRIBUTION WIDTH 16.9 % (11.0-15.5); WHITE BLOOD COUNT 6.2 X10e3 (4.0-10.5)
[2017-02-28 07:10] LABS: DIFF IND NO
[2017-02-28 07:22] LABS: BUN/CREATININE RATIO 12.96; CALCIUM SERUM 8.8 mg/dL (8.4-10.2); CREATININE SERUM 2.7 mg/dL (0.6-1.4); GLOM FILT RATE Estimated 18.8 mL/min (>60); POTASSIUM 4.3 mmol/L (3.5-5.1)
[2017-02-28 09:51] LABS: CHOLESTEROL 203 mg/dL (0-200); HDL CHOLESTEROL 41 mg/dL (35-95); LDL CHOLESTEROL 122 mg/dL (-130); LDL/HDL RATIO 3 RATIO (0-4); TRIGLYCERIDES 200 mg/dL (10-160)
[2017-02-28 13:03] LABS: ARTERIAL BLOOD GAS ALLEN TEST NORMAL; ARTERIAL BLOOD GAS ART SITE LEFT RADIAL; ARTERIAL BLOOD GAS CARBOXY HB 1.2 %sat (0.0-9.0); ARTERIAL BLOOD GAS HCO3 33.8 mmol/L; ARTERIAL BLOOD GAS MET HB 0.9 %sat (0.0-2.0); ARTERIAL BLOOD GAS PCO2 60.8 mmHg (35.0-45.0); ARTERIAL BLOOD GAS pH 7.354 (7.350-7.450); ARTERIAL DRAW? YES
[2017-02-28 18:19] LABS: %MB 15.5 % (0.0-4.0); MB 10.4 ng/ml
[2017-02-28 23:02] LABS: CK TOTAL 53 IU/L (26-140)
[2017-03-01 04:13] LABS: ARTERIAL BLD GAS O2 SATURATION 99.4 % (90.0-100.0); ARTERIAL BLOOD GAS ALLEN TEST NORMAL; ARTERIAL BLOOD GAS ART SITE RIGHT RADIAL; ARTERIAL BLOOD GAS CARBOXY HB 1.3 %sat (0.0-9.0); ARTERIAL BLOOD GAS DELIVERY NASAL CANNULA; ARTERIAL BLOOD GAS HCO3 33.1 mmol/L; ARTERIAL BLOOD GAS MET HB 0.9 %sat (0.0-2.0); ARTERIAL BLOOD GAS PCO2 66.4 mmHg (35.0-45.0); ARTERIAL BLOOD GAS pH 7.306 (7.350-7.450); ARTERIAL DRAW? YES
[2017-03-01 04:54] LABS: BASOPHIL% 0.1 % (0-2.5); EOSINOPHIL% 0.1 % (0.0-7.0); HEMATOCRIT 25.6 % (35.0-45.0); HEMOGLOBIN 8.1 gm/dL (12.0-16.0); LYMPHOCYTE# 0.4 X10e3 (1.0-3.5); LYMPHOCYTE% 7.8 % (17.0-45.0); MEAN CELL VOLUME 88.5 FL (83-96); MEAN CORPUSCULAR HEMOGLOBIN 27.9 PG (28-34); MEAN CORPUSCULAR HGB CONC 31.6 g/dL (30-36); MEAN PLATELET VOLUME 8.4 FL (6.5-11.5); MONOCYTE# 0.2 X10e3 (0-1.0); MONOCYTE% 4.5 % (3.0-12.0); NEUTROPHIL# 4.1 X10e3 (1.5-7.1); NEUTROPHIL% 87.5 % (40-75); PLATELET COUNT 112 X10e3 (140-420); RED BLOOD COUNT 2.89 X10e (3.90-5.30); RED CELL DISTRIBUTION WIDTH 16.9 % (11.0-15.5); WHITE BLOOD COUNT 4.7 X10e3 (4.0-10.5)
[2017-03-01 05:00] LABS: DIFF IND NO
[2017-03-01 05:19] LABS: CK TOTAL 43 IU/L (26-140)
[2017-03-01 05:24] LABS: ALBUMIN SERUM 2.7 g/dL (3.5-5.0); BILIRUBIN,TOTAL 0.7 mg/dL (0.2-2.0); BUN/CREATININE RATIO 14.28; CALCIUM SERUM 8.7 mg/dL (8.4-10.2); CREATININE SERUM 2.8 mg/dL (0.6-1.4); POTASSIUM 5.4 mmol/L (3.5-5.1); PROTEIN TOTAL SERUM 6.6 g/dL (6.0-8.3)
[2017-03-01 13:11] LABS: LEGIONELLA AG URINE NEG (NEG)
[2017-03-01 14:27] LABS: BUN/CREATININE RATIO 15.66; CALCIUM SERUM 9.2 mg/dL (8.4-10.2); GLOM FILT RATE Estimated 16.6 mL/min (>60); POTASSIUM 5.2 mmol/L (3.5-5.1)
[2017-03-02 04:46] LABS: BASOPHIL% 0.1 % (0-2.5); DIFF IND NO; HEMATOCRIT 25.1 % (35.0-45.0); HEMOGLOBIN 8.2 gm/dL (12.0-16.0); LYMPHOCYTE# 0.5 X10e3 (1.0-3.5); LYMPHOCYTE% 7.3 % (17.0-45.0); MEAN CELL VOLUME 87.6 FL (83-96); MEAN CORPUSCULAR HEMOGLOBIN 28.5 PG (28-34); MEAN CORPUSCULAR HGB CONC 32.5 g/dL (30-36); MEAN PLATELET VOLUME 8.3 FL (6.5-11.5); MONOCYTE# 0.5 X10e3 (0-1.0); MONOCYTE% 7.2 % (3.0-12.0); NEUTROPHIL# 5.6 X10e3 (1.5-7.1); NEUTROPHIL% 85.4 % (40-75); PLATELET COUNT 118 X10e3 (140-420); RED BLOOD COUNT 2.87 X10e (3.90-5.30); RED CELL DISTRIBUTION WIDTH 17.1 % (11.0-15.5); WHITE BLOOD COUNT 6.6 X10e3 (4.0-10.5)
[2017-03-02 05:42] LABS: ALBUMIN SERUM 2.8 g/dL (3.5-5.0); BILIRUBIN,TOTAL 0.6 mg/dL (0.2-2.0); BUN/CREATININE RATIO 18.51; CALCIUM SERUM 8.8 mg/dL (8.4-10.2); CREATININE SERUM 2.7 mg/dL (0.6-1.4); GLOM FILT RATE Estimated 18.8 mL/min (>60); MAGNESIUM 2.1 mg/dL (1.6-3.0); POTASSIUM 5.2 mmol/L (3.5-5.1); PROTEIN TOTAL SERUM 6.8 g/dL (6.0-8.3)
[2017-03-03 06:13] LABS: HEMATOCRIT 26.2 % (35.0-45.0); HEMOGLOBIN 8.4 gm/dL (12.0-16.0); MEAN CELL VOLUME 87.3 FL (83-96); MEAN CORPUSCULAR HGB CONC 32.1 g/dL (30-36); MEAN PLATELET VOLUME 8.3 FL (6.5-11.5); RED CELL DISTRIBUTION WIDTH 16.8 % (11.0-15.5); WHITE BLOOD COUNT 8.3 X10e3 (4.0-10.5)
[2017-03-03 07:50] LABS: BUN/CREATININE RATIO 20.76; CALCIUM SERUM 8.7 mg/dL (8.4-10.2); CREATININE SERUM 2.6 mg/dL (0.6-1.4); GLOM FILT RATE Estimated 19.7 mL/min (>60); POTASSIUM 3.8 mmol/L (3.5-5.1)
[2017-03-03 07:52] LABS: COMPLEMENT C3 169 mg/dL (90-180); COMPLEMENT C4 28 mg/dL (16-47)
[2017-05-19] MEDS ORDERED: SIMVASTATIN10 MG PO (11:06)
[2017-05-19] MEDS ORDERED: FUROSEMIDE40 MG PO (11:07)
[2017-05-31] MEDS ORDERED: LEVEMIR FL100 UNIT/1 SUBQ (11:00)
[2017-05-31] MEDS ORDERED: PERCOCET10 PO (11:01)
[2017-05-31] MEDS ORDERED: MILK OF MAGNESIA PO (11:01)
[2017-05-31] MEDS ORDERED: ALBUTEROL 0.5ML NEB (11:01)
[2017-05-31] MEDS ORDERED: IPRAT-ALBUT 0.5-3 ML NEB (11:01)
[2017-05-31] MEDS ORDERED: LEVAQUIN PO (11:02)
[2017-05-31] MEDS ORDERED: DESYREL50 MG PO (11:02)
[2017-05-31] MEDS ORDERED: FLOMAX0.4 M1 PO (11:02)
[2017-05-31] MEDS ORDERED: NOVOLOG100 U/ML SUBQ (11:02)
[2017-05-31] MEDS ORDERED: ZOCOR PO (11:02)
[2017-05-31] MEDS ORDERED: SEROQUEL PO (11:02)
[2017-05-31] MEDS ORDERED: ACETAMINOPHEN650 M3 PO (11:03)
[2017-05-31] MEDS ORDERED: ALPRAZOLAM0.25 MG PO (11:03)
[2017-05-31] MEDS ORDERED: FLAGYL PO (11:03)
[2017-05-31] MEDS ORDERED: FUROSEMIDE40 MG PO (11:04)
[2017-05-31] MEDS ORDERED: DOC-Q-LACE100 MG PO (11:04)
[2017-05-31] MEDS ORDERED: LOPRESSOR PO (11:04)
[2017-05-31] MEDS ORDERED: LEVETIRACETAM500 M1 PO (11:04)
[2017-05-31] MEDS ORDERED: NORVASC PO (11:05)
[2017-05-31] MEDS ORDERED: DULOXETINE HCL60 MG PO (11:05)
[2017-05-31] MEDS ORDERED: IMDUR PO (11:05)
[2017-05-31] MEDS ORDERED: ALLERCLEAR10 MG PO (11:05)
[2017-05-31] MEDS ORDERED: ALDACTONE PO (11:05)
[2017-05-31] MEDS ORDERED: NEURONTIN100 MG PO (11:06)
[2017-05-31] MEDS ORDERED: ARANESP SUBQ (11:06)
[2017-05-31] MEDS ORDERED: MIRALAX17 GM PO (11:07)
[2017-05-31] MEDS ORDERED: AMANTADINE100 M1 PO (11:07)
[2017-05-31] MEDS ORDERED: TRADJENTA5 MG PO (11:07)
[2017-05-31] MEDS ORDERED: DITROPAN XL PO (11:07)
[2017-05-31] MEDS ORDERED: LINZESS145 MCG PO (11:07)
[2017-05-31] MEDS ORDERED: MAGNESIUM400 MG PO (11:07)
[2017-05-31] MEDS ORDERED: CALCIUM ACETAT667 MG PO (11:08)
[2017-05-31] MEDS ORDERED: CLOPIDOGREL75 MG PO (11:08)
[2017-05-31] MEDS ORDERED: ACID CONTROL150 M1 PO (11:08)
[2017-05-31] MEDS ORDERED: ESOMEPRAZOLE MA20 MG PO (11:08)
[2017-05-31] MEDS ORDERED: ST JOSEPH ASPIR81 MG PO (11:08)
== END 2017-03-03 13:36 | DRG 291 ==
LOC: CED 18:13 → CEDOF 20:10 → CICCU3 02-28 06:17 → CEDOF 02-28 06:17 → CICCU3 03-01 08:34 → C3A PCU 03-01 18:39
PROVIDERS: Family Medicine; Internal Medicine; Internal Medicine Cardiovascular Disease; Internal Medicine Nephrology; Student in an Organized Health Care Education/Training Program
DX: I13.0 Hypertensive heart and chronic kidney disease with heart failure and stage 1 through stage 4 chronic kidney disease, or unspecified chronic kidney disease (principal); I50.33 Acute on chronic diastolic (congestive) heart failure; J96.01 Acute respiratory failure with hypoxia; J18.9 Pneumonia, unspecified organism; J96.02 Acute respiratory failure with hypercapnia; N17.9 Acute kidney failure, unspecified; E11.22 Type 2 diabetes mellitus with diabetic chronic kidney disease; N18.3 Chronic kidney disease, stage 3 (moderate); N39.0 Urinary tract infection, site not specified; G81.94 Hemiplegia, unspecified affecting left nondominant side; Z79.4 Long term (current) use of insulin; I25.10 Atherosclerotic heart disease of native coronary artery without angina pectoris; E78.5 Hyperlipidemia, unspecified; F41.9 Anxiety disorder, unspecified; G40.909 Epilepsy, unspecified, not intractable, without status epilepticus; F32.9 Major depressive disorder, single episode, unspecified; E66.01 Morbid (severe) obesity due to excess calories; M54.9 Dorsalgia, unspecified; G89.29 Other chronic pain; Z86.14 Personal history of Methicillin resistant Staphylococcus aureus infection; Z98.51 Tubal ligation status; Z79.82 Long term (current) use of aspirin; Z68.39 Body mass index [BMI] 39.0-39.9, adult; R74.9 Abnormal serum enzyme level, unspecified; G47.33 Obstructive sleep apnea (adult) (pediatric); M62.3 Immobility syndrome (paraplegic)
CPT/HCPCS: 36415; 36600; 71010; 71250; 76770; 80048; 80053; 80061; 80076; 81003; 82550; 82553; 82728; 82803; 82947; 83010; 83540; 83550; 83605; 83615; 83735; 83880; 84443; 84484; 85025; 85027; 85044; 85610; 85730; 86160; 87040; 87086; 87449; 87899; 89190; 92610; 93005; 94640; 94660; 94760; 94761; 96374; 96375; 99291; G8996-GN; G8997-GN; G8998-GN; J0456; J0696; J0885; J1815; J1940; J2920; J2930

== ENCOUNTER 2017-03-14 21:11 | Inpatient (IN) | payer MEDICARE, OTHER ==
--- NOTE | ~2017-03-14 | ST ---
Unit #: [id number] #: [id number] Patient: SIMON BERNSTEIN [id number] [address] [address] [id number] I MR#: [id number] NAME: SIMNO BERNSTEIN : 1960 SEX: F STUDY DATE/TIME: 03/17/2017 UNIT: C3A PCU ROOM: [facility] STUDY DESCRIPTION: Stress Test Attending Physician: Breann Riddle M.D. Primary Care Physician: Edgar Goodrich M.D. CARDIOLOGY REPORT EXAM EKG Portion of a Lexiscan Cardiolite Stress Test REASON FOR EXAMINATION Increased shortness of air. DESCRIPTION Baseline EKG is sinus rhythm with a ventricular rate of 62 and nonspecific T wave abnormalities. A total of 0.4 mg of Lexiscan was injected per protocol followed by Cardiolite. The patient's symptoms were mild abdominal pressure. The test was stopped due to protocol completion. The patient's symptoms resolved in the recovery period. IMPRESSION 1. This is a nondiagnostic test. 2. There were no acute ischemic changes. 3. Please correlate with Cardiolite imaging. Dictated by... Deepti Cowart APRN for Linnea Storey TD: 03/17/2017 11:29 JOB #: [id number] CARDIOLOGY REPORT Page 1 of 1 X CARDIOLOGY REPORT
--- NOTE | ~2017-03-14 | HP ---
Unit #: [id number] #: [id number] Patient: SIMON BERNSTEIN [id number] [address] [place], [place] [address] [id number] I MR#: [id number] NAME: SIMON BERNSTEIN ROOM: 36446 Age: 57 Sex: F Admission Date: 03/14/2017 : 1960 Attending Physician: Bria Amaya M.D. Primary Care Physician: Edgar Goodrich M.D. HISTORY AND PHYSICAL CHIEF COMPLAINT Acute hypoxic hypercapnic respiratory failure. HISTORY OF PRESENT ILLNESS This pleasant 57-year-old female with multiple medical problems including diabetes mellitus, CAD with diastolic congestive heart failure, chronic kidney disease, is admitted for shortness of breath. The patient was most recently admitted to this facility 02/27 through 03/03/2017 with diastolic congestive heart failure and multifocal pneumonia. She lives at [facility]. Notes increasing swelling over left leg with a reportedly negative venous Doppler recently of the left leg. Tonight at 8:00 p.m. she developed sudden shortness of breath while ambulating up to the bathroom but denies chest pain with the above. Notes recent decreased urinary output and an 8 pound weight gain. Her 02 saturation was 80% at the skilled nursing and a nonrebreather was placed. She was brought to this emergency department where she is more comfortable on BiPAP. Initial blood pressure was 189/72. She was treated with 1 mg IV Ativan, 40 mg of IV Lasix, 1 inch of Nitrol Paste. Chest x-ray and BNP are more suggestive of congestive heart failure however, she has elevated lactic acid level and a mild white blood count, therefore she was given 2 g Vancomycin. She adamantly denies recent cough, fever, sweats or chills. PAST MEDICAL HISTORY 1. History of chronic cystitis with bladder tumor. 2. Essential hypertension. 3. Chronic kidney disease with a baseline creatinine of 2.7. 4. History of MRSA. 5. Subarachnoid hemorrhage due to an aneurysm which ruptured requiring right-sided craniotomy. The patient has a persistent left hemiparesis and history of seizures. 6. CAD, status post multivessel PCI and stent with ejection fraction of 50-55% and history of diastolic congestive heart failure. Stents were placed 09/26/2016 at this facility, the patient has two further stents placed I believe in November at [facility]. 7. AODM. 8. Chronic constipation. 9. Depression. 10. Chronic back pain. 11. Morbid obesity. 12. BILATERAL TUBAL LIGATION. 13. Admission 06/2014 for left retroperitoneal abscess requiring I&D. 14. Admission 10/2013 for inferior pubic ramus fracture and nondisplaced fracture of the right acetabulum. The patient was also found at that Unit #: [id number] #: [id number] Patient: SIMON BERNSTEIN to have an extraperitoneal bladder rupture requiring radiology placement of drain. 15. Bilateral shoulder surgery. SOCIAL HISTORY The patient lives at [facility] under the care of Dr. Kameron Goodrich. History of tobacco use. Does not drink alcohol. FAMILY HISTORY CAD, lung cancer, diabetes mellitus and hypertension. ALLERGIES No known drug allergies. DETENTION MEDICATIONS 1. Claritin 10 gm daily. 2. Myrbetriq ER 25 mg daily. 3. Multivitamin daily. 4. Flomax 0.5 mg q h.s. 5. Amitiza 24 mcg daily. 6. Norvasc 5 mg daily. 7. Aspirin 81 mg daily. 8. Plavix 75 mg daily. 9. MiraLAX daily. 10. Magnesium 400 mg daily. 11. PhosLo 667 mg t.i.d. with meals. 12. Neurontin 100 mg t.i.d. 13. Lasix 40 mg p.o. b.i.d. 14. Metoprolol 50 mg b.i.d. 15. Keppra 500 mg b.i.d. 16. Senna-S b.i.d. 17. Amantadine 100 mg b.i.d. 18. Zocor 10 mg daily. 19. Seroquel 200 mg q h.s. 20. Nexium 40 mg daily. 21. Imdur 60 mg daily. 22. Cymbalta 60 mg daily. 23. Tradjenta 5 mg daily. 24. Xanax .25 mg b.i.d. p.r.n. 25. Duo Nebs q 6 hours as needed. 26. Percocet 5/225 b.i.d. p.r.n. 27. NovoLog 15 units t.i.d. with meals. 28. Levemir 70 units subcu b.i.d. REVIEW OF SYSTEMS Unable to obtain as the patient has BiPAP in place. PHYSICAL EXAMINATION GENERAL APPEARANCE: Pleasant 57-year-old female, currently in no acute distress. VITAL SIGNS: Temp 98.7, pulse 97, respirations 28, B/P initially 189/72 which has improved to a B/P of 155/78. 02 saturation 98% on FIO2 of 40% BiPAP. HEENT: Eyes - PERRLA. Extraocular muscles intact. Pharynx is benign. NECK: Supple without adenopathy or thyromegaly. CHEST: Diminished breath sounds. HEART: Normal S1 and S2 without definite murmur. ABDOMEN: Bowel sounds are present, obese, nontender. No Unit #: [id number] #: [id number] Patient: SIMON BERNSTEIN hepatosplenomegaly or masses. EXTREMITIES: Notable for significant left leg swelling. Pedal pulses are diminished. No ulcers on the feet. Negative Esme's sign. NEUROLOGIC: Patient is awake, alert, oriented, cranial nerves are intact, equal strength throughout. DIAGNOSTIC STUDIES LABORATORY: Hematocrit 30.8 which is improved. White blood count is 13.6, platelet count is 121. Coags normal. SMA 12 - glucose 123, BUN 43, creatinine 2.7, up from a BUN of 54, creatinine of 2.6 eleven days ago. Chloride is 98, protein is 9, ALT 53, alkaline phos 205, BNP 744 but this is improved from earlier in the month. Lactic acid 3.2. ABG - pH 7.31, PCO2 57.6, PO2 67.3, O2 saturation is 87.6% on BiPAP 12/6, rate 16, FIO2 of 35%. Cardiac markers are negative. IMAGING: Chest x-ray - cardiomegaly, diffuse bilateral opacities which could be congestive heart failure versus pneumonia. CARDIOVASCULAR: EKG - sinus rhythm, rate 75. Nonspecific ST-wave abnormalities. ASSESSMENT 1. Acute hypoxic hypercapnic respiratory failure. The patient has likely underlying COPD, may have decompensated diastolic congestive heart failure. I am concerned about her left leg swelling and also will place on anticoagulation at this time for possible PE. Doubt pneumonia. 2. Left leg swelling. 3. Chronic kidney disease. 4. AODM. 5. CAD status post multivessel PCI and stent with normal ejection fraction and history of diastolic dysfunction. 6. Accelerated hypertension. 7. Prior craniotomy for intracranial aneurysm with a left hemiparesis and seizure disorder. 8. Chronic back pain. 9. Morbid obesity. PLANS 1. Gentle diuresis. 2. Continue BiPAP for now. 3. Low dose heparin drip pending venous Dopplers in the morning. 4. Check procalcitonin level in the morning along with chest x-ray. I will give one dose of antibiotics tonight pending above-mentioned results, but if no compelling evidence for infection will discontinue antibiotics. 5. Pulmonary and cardiology to see. 6. I's and O's and daily weights. 7. Carlos catheter and obtain urinalysis. Critical care time spent evaluating this patient was 35 minutes. STAT * RESULT Dictated by Unit #: [id number] #: [id number] Patient: AMANDEEPSIMON M.D. AML/amber TD: 03/15/2017 04:00 JOB #: [id number] HISTORY AND PHYSICAL Page 1 of 1 X Bria Amaya MD X HISTORY AND PHYSICAL
--- NOTE | ~2017-03-14 | CR72 ---
[facility] A Service of [facility] RADIOLOGY TEXT RESULTS PATIENT: SIMON BERNSTEIN LOCATION: [facility] 311-01 : 60 UNIT #: [id number] AGE: [address]: Breann Riddle MD SEX: F ORDER DR: [id number] [facility] [address]. [place], [place] [address] [id number] I MR#: [id number] #: [id number] NAME: SIMON BERNSTEIN : 1960 SEX: F STUDY DATE/TIME: 03/15/2017 5:20 UNIT: CEDOF ROOM: 05406 STUDY DESCRIPTION: CR Chest Single View Portable Attending Physician: Bria Amaya M.D. Ordering Physician: Mervin Granger M.D. Primary Care Physician: Edgar Goodrich M.D. MEDICAL IMAGING REPORT This report is preliminary unless electronic signature is present EXAM Portable chest INDICATION Respiratory failure. PROCEDURE Frontal view chest. COMPARISON 03/14/2017. FINDINGS Stable cardiomegaly. Pulmonary vessels are stable and interstitial and alveolar opacities are unchanged. No pneumothorax. IMPRESSION Stable. Dictated by... Kulwant Rios M.D. THIS IS AN ELECTRONICALLY VERIFIED REPORT Kulwant Rios M.D. at 03/15/2017 10:01 PM KASSIDY/glendy TD: 03/15/2017 06:26 JOB #: [id number] MEDICAL IMAGING REPORT Page 1 of 1 COPY
--- NOTE | ~2017-03-14 | TH ---
Unit #: [id number] #: [id number] Patient: SIMON BERNSTEIN [id number] [address] [address] [id number] I MR#: [id number] NAME: SIMON BERNSTEIN : 1960 SEX: F STUDY DATE/TIME: 03/17/2017 UNIT: C3A PCU ROOM: 311 STUDY DESCRIPTION: Nuclear study Attending Physician: Breann Riddle M.D. Primary Care Physician: Edgar Goodrich M.D. CARDIOLOGY REPORT EXAM Stress and nuclear combined. INDICATION Shortness of breath, prior PCI and stent, hypertension, dyslipidemia, diabetes. SUMMARY The patient received Lexiscan intravenously while at rest because of inability to exercise adequately. The resting ECG was abnormal with 0.[address] depression in leads II, III, aVF and V6. There is poor R wave progression noted. With stress, there was an additional 0.[address] depression in the leads which were abnormal at rest. There were no significant dysrhythmias or heart block. The heart rate increased from 62 to 71 and blood pressure decreased 163/67 to 153/68. Tc-99m Cardiolite, 29.7 and 30.0 mCi was injected over a two-day period at rest and stress respectively. Appropriate views were obtained. FINDINGS This study is adequate. There is no significant patient motion noted during acquisition of the rest or stress images. There is no significant lung uptake, LV or RV enlargement. Summed stress score is 6. Summed different score is 6. Changes involve primarily the basal inferior and inferolateral wall. Gated perfusion wall motion analysis demonstrates normal wall motion throughout the myocardium with end-diastolic volume 85 mL, ejection fraction 61%. Perfusion images demonstrate intestinal artifact in the inferolateral wall at rest which is not as prominent with stress. Otherwise, perfusion is normal and equivalent with rest and stress. IMPRESSION 1. Probable very mild small area of inferolateral ischemia. 2. No infarction. 3. Normal wall motion and LV size. 4. Normal ejection fraction. 5. Minor ST changes noted on the Lexiscan stress ECG, not consistent with ischemia. 6. No chest pain noted. Unit #: [id number] #: [id number] Patient: AMANDEEPSIMON by... Linnea Leonardo/mike TD: 03/18/2017 07:37 JOB #: [id number] CARDIOLOGY REPORT Page 1 of 1 X Bucky Santacruz MD CARDIOLOGY REPORT
--- NOTE | ~2017-03-14 | DS ---
Unit #: [id number] #: [id number] Patient: SIMON BERNSTEIN [id number] [address] [address] [id number] I MR#: [id number] NAME: SIMON BERNSTEIN ROOM: 311 Age: 57 Sex: F Admission Date: 03/14/2017 : 1960 Discharge Date: 03/17/2017 Attending Physician: Breann Riddle M.D. Primary Care Physician: Edgar Goodrich M.D. DISCHARGE SUMMARY PRINCIPAL DIAGNOSES 1. Acute exacerbation of chronic diastolic congestive heart failure with an ejection fraction of 62%. 2. Acute hypoxic respiratory failure secondary to #1, now resolved. 3. Chronic kidney disease stage 4 with baseline creatinine of approximately 3.8 to 4. 4. Diabetes mellitus type 2, insulin requiring and controlled, with peripheral neuropathy. 5. Mild thrombocytopenia with discharge platelet count of 75,000. 6. Anemia. 7. Hypertension. 8. Coronary artery disease, status post stent to the left anterior descending. 9. Probable obstructive sleep apnea. 10. Morbid obesity. 11. Seizure disorder. 12. Depression. 13. Constipation. 14. Hyperlipidemia. 15. Urge incontinence. 16. Gastroesophageal reflux disease. 17. History of subarachnoid hemorrhage. CONSULTANTS 1. Dr. Maradiaga, Cardiology. 2. Dr. Jackson, Nephrology. 3. Dr. Willis, Pulmonology. PROCEDURES 1. Cardiolite stress test with a small amount of inferolateral ischemia. This will be treated medically. 2. Chest x-ray on March 14, 2017, showed cardiomegaly with diffuse patchy pulmonary infiltrates. 3. Lower extremity venous Doppler of the left which was negative for DVT. CLINICAL HISTORY AND HOSPITAL COURSE Ms. Bernstein is a 57-year-old female transferred from the nursing facility after the abrupt onset of shortness of breath. Please refer to History and Physical for further details. In the emergency department, patient was found to be hypoxic. Chest x-ray was most consistent with pulmonary edema. There was initially some concern about possible pneumonia, but patient did not have any significant leukocytosis, nor did she have any fever, and antibiotics were held. Patient was subsequently admitted. Unit #: [id number] #: [id number] Patient: SIMON BERNSTEIN Patient was placed on an increasing dose of diuretics, and her dyspnea resolved. Cardiology evaluated the patient. She does have a history of coronary artery disease and subsequent underwent a Cardiolite stress test primarily due to the fact there was concern that perhaps her symptoms represented a flash pulmonary edema. Cardiolite did reveal some mild inferolateral ischemia for which the patient was asymptomatic. Given her chronic kidney disease, she will be treated medically only. Due to patient's chronic kidney disease and requirement for adjustment in dose of diuretics, Nephrology was consulted. Patient will be discharged on an increasing dose of diuretic. The plan is for her to have a CO2 angiogram as an outpatient to rule out renal artery stenosis as a source of her flash pulmonary edema. I will note, patient's hypoxia resolved with diuresis, and no further pulmonary intervention was done. Patient also developed some thrombocytopenia. Record review indicates however, that the thrombocytopenia is recurrent . However, I will note, the platelet count at its lowest has been at 75,000. She was on heparin for DVT prophylaxis, and of course, this will be discontinued. A platelet count can be done in two to three weeks. She is medically stable for discharge back to the [facility] today. DISCHARGE CONDITION Stable. DISCHARGE STATUS Return to nursing facility. DISCHARGE MEDICATIONS 1. Proventil solution 1 ampule every 4 hours p.r.n. for shortness of breath. 2. Flomax 0.4 mg daily. 3. Magnesium oxide 400 mg daily. 4. Neurontin 100 mg p.o. b.i.d. 5. Keppra 500 mg b.i.d. 6. Cymbalta 60 mg daily. 7. Claritin 10 mg daily. 8. Seroquel 200 mg daily. 9. Amantadine 100 mg b.i.d. 10. Xanax 0.25 mg b.i.d. 11. Norvasc 5 mg daily. 12. Norvasc 5 mg daily. 13. Metoprolol tartrate 50 mg b.i.d. 14. Colace 100 mg b.i.d. 15. MiraLax 17 g p.o. daily. 16. Tradjenta 5 mg daily. 17. Lasix 80 mg daily. 18. Myrbetriq 25 mg daily. 19. Zocor 10 mg daily. 20. NovoLog 15 units subcutaneous t.i.d. with meals. 21. Levemir 70 units subcutaneously b.i.d. 22. Cerovite Senior tablet 1 daily. 23. Aspirin 81 mg daily. 24. Percocet 5/325 at 1-2 tablets p.o. q.6 hours p.r.n. for pain. Unit #: [id number] #: [id number] Patient: SIMON BERNSTEIN 25. Plavix 75 mg daily. 26. Amitiza 25 mcg p.o. daily. 27. Esomeprazole 20 mg daily. 28. PhosLo 667 mg p.o. t.i.d. with meals. 29. Isosorbide mononitrate ER 60 mg daily. DISCHARGE INSTRUCTIONS 1. Patient is instructed to follow a 2000 mL fluid-restricted diet. She should otherwise follow a CCD, heart-healthy, low sodium diet. 2. She can increase her activity as tolerated. 3. Will continue her Accu-Cheks a.c. and at bedtime. FOLLOWUP 1. Patient will follow up with Dr. Maradiaga as scheduled. This will be on discharge instructions. 2. Patient should follow up with her primary human projectile in two weeks. She should have a CBC done on March 19, 2017, and as an outpatient should have CO2 angiogram arranged to rule out renal artery stenosis. Time spent on discharge today 43 minutes. Dictated by... Linnea Enciso TD: 03/17/2017 17:01 JOB #: [id number] DISCHARGE SUMMARY Page 1 of 1 X Breann Riddle MD X DISCHARGE SUMMARY
--- NOTE | ~2017-03-14 | EKG ---
PATIENT: SIMON BERNSTEIN UNIT #: [id number] Ventricular Rate: 75 BPM Atrial Rate: 75 BPM P-R Interval: 132 ms QRS Duration: 76 ms Q-T Interval: 392 ms QTC Calculation(Bezet): 437 ms P Liberty: 49 degrees Calculated R Liberty: 10 degrees Calculated T Liberty: -36 degrees Diagnosis Line: Normal sinus rhythm Diagnosis Line: Possible Inferior infarct (cited on or before Diagnosis Line: 03-MAR-2017) Diagnosis Line: Nonspecific ST and T wave abnormality Diagnosis Line: Abnormal ECG Diagnosis Line: When compared with ECG of 03-MAR-2017 07:24, Diagnosis Line: No significant change was found Diagnosis Line: Confirmed by ETIENNE REIS MD ([id number]) on 03/16/2017 Diagnosis Line: 5:37:28 AM INTERPRETING MD: SMILEY SCHWARTZ
--- NOTE | ~2017-03-14 | CO ---
Unit #: [id number] #: [id number] Patient: SIMON BERNSTEIN [id number] [address] [place], [place] [address] [id number] I MR#: [id number] NAME: SIMON BERNSTEIN ROOM: 311 Age: 57 Sex: F Admission Date: 03/14/2017 : 1960 Attending Physician: Breann Riddle M.D. Primary Care Physician: Edgar Goodrich M.D. Requesting Physician: Bria Amaya M.D. Consultation Date: 03/15/2017 CONSULTATION REPORT REASON FOR CONSULTATION Hypoxia. HISTORY OF PRESENT ILLNESS This is a very pleasant 57-year-old female who is well known to our service from multiple previous admissions, with a past medical history significant for diabetes mellitus, coronary artery disease with diastolic congestive heart failure and chronic kidney disease. [facility] with [facility]. The patient was just discharged from the hospital on 03/03/2017 after an admission for multifocal pneumonia and congestive heart failure. She was at [facility]. For the last few days she was noted to have increasing bilateral lower extremity edema, more on the left than on the right. She had a Doppler at the prison that was negative. The patient started becoming more dyspneic, mainly on exertion, but it progressed to the point she was even dyspneic at rest. Her O2 saturation at the prison was 80%. The patient was found to be hypertensive upon presentation to the emergency room. Her chest x-ray and lab work were consistent with congestive heart failure. The patient denied any fever, chills, cough or chest pain. PAST MEDICAL HISTORY 1. Chronic cystitis with bladder tumor. 2. Essential hypertension. 3. Chronic kidney disease. 4. History of MRSA. 5. Arachnoid hemorrhage due to aneurysm. 6. History of seizure. 7. Coronary artery disease. 8. Diabetes. 9. Chronic constipation. 10. Depression. 11. Chronic back pain. 12. Morbid obesity. PAST SURGICAL HISTORY 1. Bilateral tubal ligation. 2. I and D of retroperitoneal abscess. 3. Craniotomy. 4. PCI. 5. Bilateral shoulder surgery. Unit #: [id number] #: [id number] Patient: SIMON BERNSTEIN SOCIAL HISTORY The patient is a prison resident. She is an ex-smoker. She does not drink or use illicit drugs. FAMILY HISTORY Coronary artery disease, lung cancer and diabetes. ALLERGIES No known drug allergies. HOME MEDICATIONS 1. Claritin. 2. Multivitamin. 3. Flomax. 4. Norvasc. 5. Aspirin. 6. Plavix. 7. Magnesium. 8. MiraLAX. 9. PhosLo. 10. Neurontin. 11. Lasix. 12. Metoprolol. 13. Keppra. 14. Senokot. 15. Amantadine. 16. Zocor. 17. Seroquel. 18. Nexium. 19. Cymbalta. 20. Tradjenta. 21. Xanax. 22. Percocet. 23. Levemir. REVIEW OF SYSTEMS Twelve point review of systems was obtained and was negative, except for that which was mentioned in the history of present illness. PHYSICAL EXAMINATION GENERAL: The patient currently is in no acute distress. HEENT: Atraumatic, normocephalic. Pupils equally round and reactive to light and accommodation. Extraocular muscles intact. NECK: Supple. No jugular venous distension. No lymphadenopathy. CHEST: Bilateral fine rhonchi. No wheezing. HEART: S1 and S2. No murmur, gallop or rub. ABDOMEN: Soft and nontender. Bowel sounds positive. No hepatosplenomegaly. EXTREMITIES: Bilateral lower extremity edema, moreso on the left than the right. NEUROLOGIC: Awake, alert and oriented times three. There is slight left-sided weakness, but it is chronic. DIAGNOSTIC STUDIES LABORATORY: Creatinine 2.7, CO2 29, sodium 136, blood gas 7.33/55/121. White blood cell count 8.8, hemoglobin 7.9, platelets 81. Unit #: [id number] #: [id number] Patient: SIMON BERNSTEIN ASSESSMENT 1. Acute hypoxic hypercarbic respiratory failure. 2. Diastolic congestive heart failure, acute on chronic. 3. Chronic kidney disease. 4. Diabetes. 5. Coronary artery disease. 6. Morbid obesity. 7. History of seizure. PLAN 1. Will use BiPAP as needed. Currently she is comfortable on nasal cannula, which will continue. 2. She will need a sleep study as an outpatient for better control of her congestive heart failure. 3. IV Lasix. Will monitor urine output and creatinine very closely. 4. No need for antibiotics at this point. Will watch for lactic acid and procalcitonin. 5. Bronchodilator and mucolytics. 6. Carlos catheter for strict urine output. I would like to thank Dr. Amaya for allowing me to be part of this patient's care. Dictated by... Jaswinder Willis M.D. EA/lena TD: 03/16/2017 08:27 JOB #: [id number] CONSULTATION REPORT Page 1 of 1 X JASWINDER NIÑO MD X CONSULTATION REPORT
--- NOTE | ~2017-03-14 | CR72 ---
[facility] A Service of [facility] RADIOLOGY TEXT RESULTS PATIENT: SIMON BERNSTEIN LOCATION: CEDOF : 60 UNIT #: [id number] AGE: [address]: Breann Riddle MD SEX: F ORDER DR: [id number] [facility] [address]. [place], [place] [address] [id number] MR#: [id number] Acc #: [id number] NAME: SIMON BERNSTEIN : 1960 SEX: F STUDY DATE/TIME: 03/14/2017 21:31 UNIT: CODY ROOM: STUDY DESCRIPTION: CR Chest Single View Portable Attending Physician: Mervin Granger M.D. Ordering Physician: Mervin Granger M.D. Primary Care Physician: Edgar Goodrich M.D. MEDICAL IMAGING REPORT This report is preliminary unless electronic signature is present EXAM Portable chest, 03/14/2017 HISTORY 57-year-old female with shortness of air and cough today. COMPARISON Chest 03/01/2017 FINDINGS Frontal chest demonstrates patchy diffuse bilateral pulmonary infiltrates. Cardiomegaly is noted. Findings may be secondary to congestive failure or multifocal pneumonia. No pneumothorax or significant pleural effusion. IMPRESSION Cardiomegaly with diffuse patchy bilateral pulmonary opacities. Findings could be secondary to pneumonia versus congestive failure and correlation with clinical findings recommended. Dictated by... Jacob Bishop M.D. THIS IS AN ELECTRONICALLY VERIFIED REPORT Jacob Bishop M.D. at 03/15/2017 10:26 AM ABBY/amber TD: 03/14/2017 22:35 JOB #: [id number] MEDICAL IMAGING REPORT [facility] A Service of [facility] RADIOLOGY TEXT RESULTS PATIENT: SIMON BERNSTEIN LOCATION: CEDOF : [birth year] UNIT #: [id number] AGE: [address]: Breann Riddle MD SEX: F ORDER DR: Page 1 of 1 COPY
--- NOTE | ~2017-03-14 | ST ---
Unit #: [id number] #: [id number] Patient: SIMON BERNSTEIN [id number] [address] [address] [id number] I MR#: [id number] NAME: SIMON BERNSTEIN : 1960 SEX: F STUDY DATE/TIME: 03/17/2017 UNIT: C3A PCU ROOM: [facility] STUDY DESCRIPTION: Stress test Attending Physician: Breann Riddle M.D. Primary Care Physician: Edgar Goodrich M.D. CARDIOLOGY REPORT EXAM Stress test. FINDINGS Result text under nuclear order number. Please see this order for result text. Dictated by... Linnea Leonardo/mike TD: 03/18/2017 07:52 JOB #: [id number] CARDIOLOGY REPORT Page 1 of 1 X Bucky Santacruz MD CARDIOLOGY REPORT
--- NOTE | ~2017-03-14 | US85 ---
[facility] A Service of [facility] RADIOLOGY TEXT RESULTS PATIENT: SIMON BERNSTEIN LOCATION: [facility] 311-01 : 60 UNIT #: [id number] AGE: [address]: Breann Riddle MD SEX: F ORDER DR: [id number] [facility] [address] [facility]. [place], [place] [address] [id number] I MR#: [id number] Acc #: [id number] NAME: SIMON BERNSTEIN : 1960 SEX: F STUDY DATE/TIME: 03/15/2017 9:43 UNIT: CEDOF ROOM: 50902 STUDY DESCRIPTION: US LE Veins Unilat or Ltd Stdy Attending Physician: Breann Riddle M.D. Ordering Physician: Mervin Granger M.D. Primary Care Physician: Edgar Goodrich M.D. MEDICAL IMAGING REPORT This report is preliminary unless electronic signature is present EXAM Unilateral left lower extremity venous Doppler DATE OF STUDY: 03/15/2017 HISTORY Left leg swelling for several weeks. No known injury. TECHNIQUE Venous ultrasound examination of the left lower extremity was performed using grayscale, spectral Doppler and color flow Doppler imaging. FINDINGS The examination is negative. There is no evidence of left lower extremity deep venous thrombus from the groin to the lower calf. Visualized greater saphenous vein is also patent. IMPRESSION Negative examination. No evidence of left lower extremity deep venous thrombosis. Dictated by... Abner Marquez M.D. THIS IS AN ELECTRONICALLY VERIFIED REPORT Abner Marquez M.D. at 03/19/2017 5:37 PM TEV/rosalinda TD: 03/15/2017 14:22 JOB #: [id number] [facility] A Service [facility] RADIOLOGY TEXT RESULTS PATIENT: SIMON BERNSETIN LOCATION: [facility] 311-01 : 60 UNIT #: [id number] AGE: [address]: Breann Riddle MD SEX: F ORDER DR: MEDICAL IMAGING REPORT Page 1 of 1 COPY
[~2017-03-14 21:11] MED LIST changes: +ALBUTEROL 0.5ML INH; +AMLODIPINE BESYL5 MG PO; +ASPIRIN81 M2 PO; +CALCIUM ACETAT667 M2 PO; +CEROVITE SENIO1 EACH PO; +CLOPIDOGREL75 MG PO; +DIASENSE MAGNE400 MG PO; +DOC-Q-LACE100 MG PO; +ESOMEPRAZOLE MA20 MG PO; +FUROSEMIDE40 MG PO; +ISOSORBIDE MONO60 M1 PO; +KEPPRA500 M1 PO; +LEVEMIR SUBQ; +NOVOLOG100 UNIT/1 SUBQ; +PERCOCET5/325 PO; +ZOCOR10 MG PO
[2017-03-14 21:35] LABS: BASOPHIL# 0.1 X10e3 (0-0.3); BASOPHIL% 0.5 % (0-2.5); EOSINOPHIL# 0.3 X10e3 (0-0.7); EOSINOPHIL% 2.6 % (0.0-7.0); HEMATOCRIT 30.8 % (35.0-45.0); HEMOGLOBIN 9.7 gm/dL (12.0-16.0); LYMPHOCYTE# 1.8 X10e3 (1.0-3.5); LYMPHOCYTE% 12.9 % (17.0-45.0); MEAN CELL VOLUME 89.2 FL (83-96); MEAN CORPUSCULAR HEMOGLOBIN 28.2 PG (28-34); MEAN CORPUSCULAR HGB CONC 31.6 g/dL (30-36); MEAN PLATELET VOLUME 8.3 FL (6.5-11.5); MONOCYTE# 0.9 X10e3 (0-1.0); MONOCYTE% 6.6 % (3.0-12.0); NEUTROPHIL# 10.5 X10e3 (1.5-7.1); NEUTROPHIL% 77.4 % (40-75); PLATELET COUNT 121 X10e3 (140-420); RED BLOOD COUNT 3.46 X10e (3.90-5.30); RED CELL DISTRIBUTION WIDTH 18.8 % (11.0-15.5); WHITE BLOOD COUNT 13.6 X10e3 (4.0-10.5)
[2017-03-14 21:36] LABS: DIFF IND NO
[2017-03-14 21:48] LABS: POC - CKMB 6.6 ng/mL (0.0-7.9); POC - TROPONIN <0.05 ng/mL (<=0.05)
[2017-03-14 21:49] LABS: INR 0.9; PARTIAL THROMBOPLASTIN TIME 24.7 SECONDS (23.5-31.3); PROTHROMBIN TIME (PATIENT) 10.3 SECONDS (10.0-11.7)
[2017-03-14 21:57] LABS: ARTERIAL BLD GAS O2 SATURATION 87.6 % (90.0-100.0); ARTERIAL BLOOD GAS ALLEN TEST NORMAL; ARTERIAL BLOOD GAS ART SITE RIGHT RADIAL; ARTERIAL BLOOD GAS CARBOXY HB 1.7 %sat (0.0-9.0); ARTERIAL BLOOD GAS HCO3 29.5 mmol/L; ARTERIAL BLOOD GAS MET HB 0.4 %sat (0.0-2.0); ARTERIAL BLOOD GAS PCO2 57.6 mmHg (35.0-45.0); ARTERIAL BLOOD GAS PO2 67.3 mmHg (80.0-100); ARTERIAL BLOOD GAS pH 7.317 (7.350-7.450); ARTERIAL DRAW? YES
[2017-03-14 21:58] LABS: ALBUMIN SERUM 3.7 g/dL (3.5-5.0); BILIRUBIN, DIRECT 0.1 mg/dL (0.0-0.2); BILIRUBIN,INDIRECT 0.2 mg/dL (0.0-0.9); BILIRUBIN,TOTAL 0.3 mg/dL (0.2-2.0); BUN/CREATININE RATIO 15.92; CALCIUM SERUM 9.6 mg/dL (8.4-10.2); CREATININE SERUM 2.7 mg/dL (0.6-1.4); GLOM FILT RATE Estimated 18.8 mL/min (>60); POTASSIUM 4.7 mmol/L (3.5-5.1)
[2017-03-14 23:52] LABS: POC - CKMB 6.3 ng/mL (0.0-7.9); POC - TROPONIN <0.05 ng/mL (<=0.05)
[2017-03-15 04:25] LABS: ARTERIAL BLD GAS O2 SATURATION 97.8 % (90.0-100.0); ARTERIAL BLOOD GAS CARBOXY HB 1.3 %sat (0.0-9.0); ARTERIAL BLOOD GAS HCO3 29.2 mmol/L; ARTERIAL BLOOD GAS MET HB 0.8 %sat (0.0-2.0); ARTERIAL BLOOD GAS pH 7.318 (7.350-7.450)
[2017-03-15 04:28] LABS: ARTERIAL BLOOD GAS ALLEN TEST NORMAL; ARTERIAL BLOOD GAS ART SITE RIGHT RADIAL; ARTERIAL BLOOD GAS PCO2 56.9 mmHg (35.0-45.0); ARTERIAL DRAW? YES
[2017-03-15 07:25] LABS: BASOPHIL% 0.3 % (0-2.5); EOSINOPHIL# 0.2 X10e3 (0-0.7); EOSINOPHIL% 2.2 % (0.0-7.0); HEMATOCRIT 24.9 % (35.0-45.0); HEMOGLOBIN 7.9 gm/dL (12.0-16.0); LYMPHOCYTE# 1.1 X10e3 (1.0-3.5); LYMPHOCYTE% 12.5 % (17.0-45.0); MEAN CELL VOLUME 89.8 FL (83-96); MEAN CORPUSCULAR HEMOGLOBIN 28.4 PG (28-34); MEAN CORPUSCULAR HGB CONC 31.6 g/dL (30-36); MEAN PLATELET VOLUME 8.6 FL (6.5-11.5); MONOCYTE# 0.5 X10e3 (0-1.0); MONOCYTE% 6.2 % (3.0-12.0); NEUTROPHIL# 6.9 X10e3 (1.5-7.1); NEUTROPHIL% 78.8 % (40-75); RED BLOOD COUNT 2.78 X10e (3.90-5.30); RED CELL DISTRIBUTION WIDTH 18.7 % (11.0-15.5); WHITE BLOOD COUNT 8.8 X10e3 (4.0-10.5)
[2017-03-15 07:53] LABS: BUN/CREATININE RATIO 16.66; CALCIUM SERUM 8.8 mg/dL (8.4-10.2); CREATININE SERUM 2.7 mg/dL (0.6-1.4); GLOM FILT RATE Estimated 18.8 mL/min (>60); POTASSIUM 4.8 mmol/L (3.5-5.1)
[2017-03-15 08:12] LABS: %MB 6.1 % (0.0-4.0); MB 6.2 ng/ml; PROCALCITONIN 0.87 NG/ML
[2017-03-15 08:34] LABS: DIFF IND YES; PLATELET COUNT 81 X10e3 (140-420)
[2017-03-15 08:36] LABS: ANISOCYTOSIS SL; HYPOCHROMIA SL; PLATELET ESTIMATE DECREASED (NORMAL)
[2017-03-15 08:37] LABS: POLYCHROMASIA SL
[2017-03-15 09:27] LABS: URINE SOURCE CLEAN CATCH
[2017-03-15 09:33] LABS: URINE APPEARANCE CLOUDY; URINE BILIRUBIN NEG (NEG); URINE BLOOD 2+ (NEG); URINE COLOR YELLOW; URINE GLUCOSE NEG (NEG); URINE KETONE NEG (NEG); URINE LEUKOCYTE ESTERASE 3+ (NEG); URINE NITRATE NEG (NEG); URINE PROTEIN TRACE (NEG); URINE SPECIFIC GRAVITY 1.013 (1.003-1.035); URINE UROBILINOGEN 0.2 MG/DL (NEG)
[2017-03-15 09:33] LABS: ARTERIAL BLD GAS O2 SATURATION 97.3 % (90.0-100.0); ARTERIAL BLOOD GAS CARBOXY HB 1.3 %sat (0.0-9.0); ARTERIAL BLOOD GAS HCO3 29.8 mmol/L; ARTERIAL BLOOD GAS MET HB 0.8 %sat (0.0-2.0); ARTERIAL BLOOD GAS pH 7.335 (7.350-7.450)
[2017-03-15 09:34] LABS: ARTERIAL BLOOD GAS ALLEN TEST NORMAL; ARTERIAL BLOOD GAS ART SITE RIGHT RADIAL; ARTERIAL BLOOD GAS DELIVERY NASAL CANNULA; ARTERIAL BLOOD GAS PCO2 55.9 mmHg (35.0-45.0); ARTERIAL DRAW? YES
[2017-03-15 09:35] LABS: URINE BACTERIA AUWI NEG (NEGATIVE); URINE SQUAMOUS EPITHELIAL CELL FEW /[HPF]; UWBCS1 AUWI 50-100 (0-5)
[2017-03-16 07:51] LABS: HEMATOCRIT 29.3 % (35.0-45.0); MEAN CELL VOLUME 90.5 FL (83-96); MEAN CORPUSCULAR HEMOGLOBIN 27.7 PG (28-34); MEAN CORPUSCULAR HGB CONC 30.7 g/dL (30-36); RED BLOOD COUNT 3.24 X10e (3.90-5.30); RED CELL DISTRIBUTION WIDTH 18.7 % (11.0-15.5); WHITE BLOOD COUNT 6.7 X10e3 (4.0-10.5)
[2017-03-16 08:19] LABS: BUN/CREATININE RATIO 16.2; CALCIUM SERUM 8.8 mg/dL (8.4-10.2); CREATININE SERUM 2.9 mg/dL (0.6-1.4); GLOM FILT RATE Estimated 17.3 mL/min (>60); POTASSIUM 4.9 mmol/L (3.5-5.1)
[2017-03-17 06:48] LABS: HEMATOCRIT 26.9 % (35.0-45.0); HEMOGLOBIN 8.4 gm/dL (12.0-16.0); MEAN CELL VOLUME 88.9 FL (83-96); MEAN CORPUSCULAR HEMOGLOBIN 27.8 PG (28-34); MEAN CORPUSCULAR HGB CONC 31.3 g/dL (30-36); MEAN PLATELET VOLUME 8.4 FL (6.5-11.5); RED BLOOD COUNT 3.03 X10e (3.90-5.30); RED CELL DISTRIBUTION WIDTH 18.4 % (11.0-15.5); WHITE BLOOD COUNT 5.6 X10e3 (4.0-10.5)
[2017-03-17 07:38] LABS: PARTIAL THROMBOPLASTIN TIME 27.8 SECONDS (23.5-31.3); PROTHROMBIN TIME (PATIENT) 10.9 SECONDS (10.0-11.7)
[2017-03-17 07:38] LABS: BUN/CREATININE RATIO 17.66; CALCIUM SERUM 8.8 mg/dL (8.4-10.2); GLOM FILT RATE Estimated 16.6 mL/min (>60)
[2017-05-19] MEDS ORDERED: SIMVASTATIN10 MG PO (11:06)
[2017-05-19] MEDS ORDERED: FUROSEMIDE40 MG PO (11:07)
[2017-05-31] MEDS ORDERED: LEVEMIR FL100 UNIT/1 SUBQ (11:00)
[2017-05-31] MEDS ORDERED: PERCOCET10 PO (11:01)
[2017-05-31] MEDS ORDERED: MILK OF MAGNESIA PO (11:01)
[2017-05-31] MEDS ORDERED: ALBUTEROL 0.5ML NEB (11:01)
[2017-05-31] MEDS ORDERED: IPRAT-ALBUT 0.5-3 ML NEB (11:01)
[2017-05-31] MEDS ORDERED: DESYREL50 MG PO (11:02)
[2017-05-31] MEDS ORDERED: ZOCOR PO (11:02)
[2017-05-31] MEDS ORDERED: FLOMAX0.4 M1 PO (11:02)
[2017-05-31] MEDS ORDERED: SEROQUEL PO (11:02)
[2017-05-31] MEDS ORDERED: NOVOLOG100 U/ML SUBQ (11:02)
[2017-05-31] MEDS ORDERED: LEVAQUIN PO (11:02)
[2017-05-31] MEDS ORDERED: ALPRAZOLAM0.25 MG PO (11:03)
[2017-05-31] MEDS ORDERED: ACETAMINOPHEN650 M3 PO (11:03)
[2017-05-31] MEDS ORDERED: FLAGYL PO (11:03)
[2017-05-31] MEDS ORDERED: LEVETIRACETAM500 M1 PO (11:04)
[2017-05-31] MEDS ORDERED: DOC-Q-LACE100 MG PO (11:04)
[2017-05-31] MEDS ORDERED: FUROSEMIDE40 MG PO (11:04)
[2017-05-31] MEDS ORDERED: LOPRESSOR PO (11:04)
[2017-05-31] MEDS ORDERED: ALDACTONE PO (11:05)
[2017-05-31] MEDS ORDERED: DULOXETINE HCL60 MG PO (11:05)
[2017-05-31] MEDS ORDERED: IMDUR PO (11:05)
[2017-05-31] MEDS ORDERED: ALLERCLEAR10 MG PO (11:05)
[2017-05-31] MEDS ORDERED: NORVASC PO (11:05)
[2017-05-31] MEDS ORDERED: ARANESP SUBQ (11:06)
[2017-05-31] MEDS ORDERED: NEURONTIN100 MG PO (11:06)
[2017-05-31] MEDS ORDERED: AMANTADINE100 M1 PO (11:07)
[2017-05-31] MEDS ORDERED: TRADJENTA5 MG PO (11:07)
[2017-05-31] MEDS ORDERED: MAGNESIUM400 MG PO (11:07)
[2017-05-31] MEDS ORDERED: MIRALAX17 GM PO (11:07)
[2017-05-31] MEDS ORDERED: LINZESS145 MCG PO (11:07)
[2017-05-31] MEDS ORDERED: DITROPAN XL PO (11:07)
[2017-05-31] MEDS ORDERED: ACID CONTROL150 M1 PO (11:08)
[2017-05-31] MEDS ORDERED: ST JOSEPH ASPIR81 MG PO (11:08)
[2017-05-31] MEDS ORDERED: CLOPIDOGREL75 MG PO (11:08)
[2017-05-31] MEDS ORDERED: CALCIUM ACETAT667 MG PO (11:08)
[2017-05-31] MEDS ORDERED: ESOMEPRAZOLE MA20 MG PO (11:08)
== END 2017-03-17 23:33 | DRG 291 ==
LOC: CED 21:11 → CEDOF 23:39 → CED 23:39 → CEDOF 23:50 → C3A PCU 03-15 15:46 → CEDOF 03-15 15:46 → C3A PCU 03-15 15:53
PROVIDERS: Emergency Medicine; Internal Medicine; Internal Medicine Cardiovascular Disease
DX: I13.0 Hypertensive heart and chronic kidney disease with heart failure and stage 1 through stage 4 chronic kidney disease, or unspecified chronic kidney disease (principal); I50.33 Acute on chronic diastolic (congestive) heart failure; R65.11 Systemic inflammatory response syndrome (SIRS) of non-infectious origin with acute organ dysfunction; J96.01 Acute respiratory failure with hypoxia; N18.4 Chronic kidney disease, stage 4 (severe); E11.42 Type 2 diabetes mellitus with diabetic polyneuropathy; D69.6 Thrombocytopenia, unspecified; J96.02 Acute respiratory failure with hypercapnia; N17.9 Acute kidney failure, unspecified; S06.6X0S Traumatic subarachnoid hemorrhage without loss of consciousness, sequela; G81.94 Hemiplegia, unspecified affecting left nondominant side; K59.09 Other constipation; F32.9 Major depressive disorder, single episode, unspecified; E66.01 Morbid (severe) obesity due to excess calories; Z98.51 Tubal ligation status; Z82.49 Family history of ischemic heart disease and other diseases of the circulatory system; Z80.1 Family history of malignant neoplasm of trachea, bronchus and lung; Z83.3 Family history of diabetes mellitus; Z79.02 Long term (current) use of antithrombotics/antiplatelets; Z79.82 Long term (current) use of aspirin; G47.33 Obstructive sleep apnea (adult) (pediatric); G40.909 Epilepsy, unspecified, not intractable, without status epilepticus; E78.5 Hyperlipidemia, unspecified; N39.41 Urge incontinence; K21.9 Gastro-esophageal reflux disease without esophagitis; I25.10 Atherosclerotic heart disease of native coronary artery without angina pectoris; Z95.5 Presence of coronary angioplasty implant and graft; M54.9 Dorsalgia, unspecified; G89.29 Other chronic pain; I25.2 Old myocardial infarction
CPT/HCPCS: 36415; 36600; 71010; 78452; 80048; 80076; 81003; 82308; 82550; 82553; 82803; 82947; 83605; 83880; 84484; 85025; 85027; 85610; 85730; 87040; 87086; 93005; 93017; 93971; 94640; 94660; 94760; 97116; 97163; 97167; 97530; 97535; 99291; A9500; G8978-GP; G8979-GP; G8987-GO; G8988-GO; J0692; J1644; J1815; J1940; J2060; J2785; J3370

== ENCOUNTER 2017-03-20 15:39 | Inpatient (IN) | payer MEDICARE, OTHER ==
--- NOTE | ~2017-03-20 | DS ---
Unit #: [id number] #: [id number] Patient: SIMON BERNSTEIN [id number] [address] [address] [id number] I MR#: [id number] NAME: SIMON BERNSTEIN ROOM: 57 Age: 57 Sex: F Admission Date: 03/20/2017 : 1960 Discharge Date: 03/27/2017 Attending Physician: Lilliam Lynch M.D. Primary Care Physician: Edgar Goodrich M.D. DISCHARGE SUMMARY REASON FOR ADMISSION Dyspnea. HISTORY OF PRESENT ILLNESS/HOSPITAL COURSE The patient is a 57-year-old female who resides correction in [facility] secondary to prior history of CVA, hemorrhagic, who presented secondary to acute on chronic respiratory failure. She was seen and evaluated, initially required BiPAP support. Please revert to H and P for complete details. This prompted subsequent placement in the ICU. Consultation now was placed to Dr. Duong and allyn who saw and evaluated patient initially as they had seen the patient in the past. She was appropriately managed with BiPAP support, IV Solu-Medrol as well as IV antibiotics. She was gradually transitioned into p.o. medications. She does have a prior history of diastolic heart failure and this prompted a consultation to Dr. Osei as consideration for possible acute on chronic diastolic heart failure was made. They continued to follow the patient through hospital course, initially recommending IV diuresis and this was transitioned into p.o. diuresis as well. She has a prior history of chronic kidney disease with a baseline creatinine closer to 3 to 3.5. This also prompted a consultation to Dr. Belle and allyn who followed patient through hospital course. Ultimately, her final urine culture results after initial abnormal urinalysis did reveal Proteus with sensitivity only to IV Zosyn. This was initiated while patient was here but she will require an additional six days post discharge which will be [facility] at [facility] for [facility] evaluation. At the time of discharge, the patient's creatinine currently stands at 3.0. Her CBC shows a hemoglobin of 8.5 and this likely represents her baseline. She does have a longstanding history of anemia which is likely multifactorial in origin. Please note, on two separate occasions the patient's blood cultures have not yielded any acute bacterial growth. Overall, the correction prognosis of this patient is guarded. Change for Unit #: [id number] #: [id number] Patient: SIMON BERNSTEIN readmission is high secondary to associated comorbid conditions as well as her chronic debility syndrome. She will be discharged back to [facility] in stable condition. FINAL DISCHARGE DIAGNOSES 1. Acute on chronic respiratory failure. 2. Chronic obstructive pulmonary disease exacerbation. 3. Acute on chronic diastolic heart failure with noted normal ejection fraction of 55%. 4. Acute on chronic kidney disease: Discharge creatinine 3.0. 5. Diabetes, poorly controlled. 6. Dyspnea, likely multifactorial in origin. 7. Prior history of bladder tumor. 8. Hypertension. 9. Subarachnoid hemorrhage with resulting immobility syndrome. 10. Coronary artery disease. 11. Depression. 12. Chronic back pain. 13. Severe morbid obesity. 14. Prior history of tobacco abuse. 15. Prior history of cardiac catheterization November 2016, with stent placement x2. 16. Anemia with baseline hemoglobin approximately 8. 17. Chronic thrombocytopenia with baseline platelets between 80 to 100. 18. Proteus urinary tract infection. FINAL DISCHARGE MEDICATIONS 1. Albuterol nebulized solution q.4 p.r.n. 2. DuoNeb aerosol solution q.6 scheduled. 3. Prednisone 20 mg p.o. daily x5 days. 4. Flomax 0.4 mg p.o. daily. 5. Tylenol 650 mg p.o. q.6 p.r.n. 6. Mag ox 400 mg p.o. daily. 7. Neurontin 100 mg p.o. t.i.d. 8. Keppra 500 mg p.o. b.i.d. for seizure prophylaxis. 9. Cymbalta 60 mg p.o. daily. 10. Claritin 10 mg p.o. daily. 11. Seroquel 200 mg p.o. q. h.s. 12. Symmetrel/amantadine 100 mg p.o. b.i.d. 13. Xanax 0.25 mg p.o. b.i.d. p.r.n. 14. Norvasc 5 mg p.o. daily. 15. Lopressor 50 mg p.o. b.i.d. 16. Colace 100 mg p.o. b.i.d. 17. MiraLAX as directed daily. 18. Tradjenta 5 mg p.o. daily. 19. Lasix 80 mg p.o. q. a.m., 40 mg p.o. q. h.s. 20. Myrbetriq 25 mg p.o. daily. 21. Zocor 10 mg p.o. daily. 22. Levemir 70 units subcu b.i.d. 23. NovoLog 5 units subcu with meals. 24. Low dose sliding scale insulin with Accu-Cheks q. a.c., q. h.s. 25. Multivitamin daily. 26. Aspirin 81 mg p.o. daily. 27. Percocet 5/325, one tablet p.o. q.6 p.r.n. 28. Plavix 75 mg p.o. daily. 29. Amitiza 24 mcg p.o. daily. 30. Nexium 20 mg p.o. daily. Unit #: [id number] #: [id number] Patient: SIMON BERNSTEIN 31. PhosLo 667 mg p.o. q.8. 32. Imdur 60 mg p.o. daily. 33. Zosyn 3.375 g IV q.12 until 04/02/17. DISCHARGE CONDITION Stable. DISCHARGE DISPOSITION [facility]. CARDIAC REHABILITATION SPECIALIST PROGNOSIS Guarded. Chance of readmission of this patient in regards to her overall deconditioning and associated comorbid medical conditions is very high. Please note - Dr. Belle has made recommendation for Aranesp 60 mcg subcu every week to be administered while [facility] is at the [facility]. The patient is to follow up with Dr. Belle and associates as an outpatient in four to six weeks. The patient should have repeat BMP, CBC within seven days post discharge. Dictated by... Lilliam Lynch M.D. SONG/joanna TD: 03/28/2017 09:32 JOB #: [id number] DISCHARGE SUMMARY Page 1 of 1 X Lilliam Lynch MD X DISCHARGE SUMMARY
--- NOTE | ~2017-03-20 | CR63 ---
[facility] A Service of [facility] RADIOLOGY TEXT RESULTS PATIENT: SIMON BERNSTEIN LOCATION: [facility] : 60 UNIT #: [id number] AGE: [address]: Lilliam Lynch MD SEX: F ORDER DR: [id number] [facility] [address] [place], [place] [address] [id number] I MR#: [id number] Acc #: [id number] NAME: SIMON BERNSTEIN : 1960 SEX: F STUDY DATE/TIME: 03/23/2017 9:24 UNIT: [facility] ROOM: [facility] STUDY DESCRIPTION: CR Chest 2 View Attending Physician: Lilliam Lynch M.D. Ordering Physician: Lilliam Lynch M.D. Primary Care Physician: Edgar Goodrich M.D. MEDICAL IMAGING REPORT This report is preliminary unless electronic signature is present EXAM Two-view chest HISTORY Pneumonia, shortness of air, cough x2 weeks. COMPARISON 03/20/2017 FINDINGS Two views of the chest are limited by body habitus and poor contrast. No dense airspace disease or consolidation. Mild cardiomegaly with mild pulmonary vascular congestion could reflect underlying CHF, but clearly no interstitial or alveolar edema or sizable effusions. Osseous structures unremarkable. IMPRESSION Technically limited examination due to body habitus and poor contrast. Mild cardiomegaly with interstitial and vascular prominence could reflect mild CHF, but clearly no airspace disease or sizable effusions noted. Dictated by... Stephanie Levy M.D. THIS IS AN ELECTRONICALLY VERIFIED REPORT Stephanie Levy M.D. at 03/24/2017 12:29 PM EFRAIN/jaiden TD: 03/23/2017 22:39 JOB #: [id number] MEDICAL IMAGING REPORT [facility] A Service of [facility] RADIOLOGY TEXT RESULTS PATIENT: SIMON BERNSTEIN LOCATION: [facility] 5703-20 : 60 UNIT #: [id number] AGE: [address]: Lilliam Lynch MD SEX: F ORDER DR: Page 1 of 1 COPY
--- NOTE | ~2017-03-20 | CO ---
Unit #: [id number] #: [id number] Patient: SIMON BERNSTEIN [id number] [address] [address] [id number] I MR#: [id number] NAME: SIMON BERNSTEIN ROOM: 577 Age: 57 Sex: F Admission Date: 03/20/2017 : 1960 Attending Physician: Lilliam Lynch M.D. Primary Care Physician: Edgar Goodrich M.D. CONSULTATION REPORT CHIEF COMPLAINT Anemia, thrombocytopenia, recent bilateral pneumonia, COPD. HISTORY OF PRESENT ILLNESS This is a 57-year-old female who weighs about 210 pounds. The patient started smoking at age of 18. She has been smoking 2 packs per day for 30 years, 60 pack-years. She has COPD. During February 2017 she was admitted in the hospital twice with bilateral pneumonia, received antibiotics, inhaler, went to rehab. Now she comes with shortness of breath, being treated for CHF and COPD exacerbation. From a hematology point of view, CBC showed WBC of 5.6, hemoglobin 8.1, platelets 94 and MCV 88. Her thrombocytopenia has been going on since February 2017. Her creatinine is 3.3. LFTs are normal. LDH is 162. I reviewed the peripheral smear. There are no blasts. There are no schistocytes. At present she is feeling better. REVIEW OF SYSTEMS CONSTITUTIONAL: No fever, no chills, no sweats, no weight loss. EYES: No visual symptoms. EARS, NOSE AND THROAT: There is no runny nose or sore throat or difficulty hearing. CARDIOVASCULAR: No chest pain. No shortness of breath. No palpitations. No orthopnea. No PND. RESPIRATORY: As mentioned above. GASTROINTESTINAL: No nausea, vomiting, diarrhea, constipation, hematochezia or melena. GENITOURINARY: No urinary frequency, hesitancy or urgency. No blood in the urine. MUSCULOSKELETAL: No muscle or joint pain. NEUROLOGIC: No headache. No numbness or tingling. No weakness. No seizure. PSYCHIATRIC: No anxiety, depression or mood disturbance. ENDOCRINE: No excessive urination or thirst. DERMATOLOGIC: No rash or change in the skin. ALLERGIC/IMMUNOLOGIC: No symptoms. HEMATOLOGIC/LYMPHATIC: Denies any symptoms. PAST MEDICAL HISTORY 1. Diabetes. 2. Hypertension. 3. Recurrent pneumonia. 4. COPD. Unit #: [id number] #: [id number] Patient: SIMON BERNSETIN ALLERGIES None. SOCIAL HISTORY As mentioned above. She has been smoking an average of 2 packs per day for 30 years. Started at age of 18. Quit about 4 months ago. Used to work at [employer]. SURGICAL HISTORY Rotator cuff repair. FAMILY HISTORY Mother had lung cancer. She was a smoker. CURRENT MEDICATIONS Her current medications include Lasix, insulin, prednisone, Xanax, PhosLo, Zocor, Lopressor, Neurontin, Norvasc, Flomax, Cymbalta, Plavix and more. PHYSICAL EXAMINATION VITALS: Afebrile. Pulse 62, respirations 20, O2 sats on 2 liters 97%, blood pressure 150/68. HEENT: Moist mucosa. Pupils equally reactive to light. Extraocular muscles intact. Sclerae anicteric. No obvious bleeding from nasal mucosa or oral mucosa. Scalp normal. Hearing normal. NECK: No JVD. No lymphadenopathy. LYMPHATIC/HEMATOLOGIC: There is no palpable adenopathy in the neck, axilla or inguinal area. CARDIOVASCULAR: S1, S2. Regular rate and rhythm. No S3 or S4. RESPIRATORY: Bilateral wheezes. ABDOMEN/GASTROINTESTINAL: Abdomen is soft, nontender, nondistended. No hepatosplenomegaly. EXTREMITIES: There is no clubbing, no cyanosis, no edema. No varicose veins. NEUROLOGICAL: Patient is alert, awake and oriented x3. Cranial nerves II-XII are intact. Sensory grossly intact. Motor is 4/5 in all four extremities. Gait is normal. Station is normal. Language is normal. Memory is normal. DTRs +2 in all four extremities. MUSCULOSKELETAL: No joint swelling. No bony tenderness. No muscle tenderness. SKIN: No petechiae, no rash, no ecchymosis. PSYCHIATRIC: No anxiety. No delusions or hallucinations. There is no agitation. Eye contact is normal. Affect is appropriate. There is no flight of ideas. DIAGNOSTIC STUDIES LAB: As mentioned above. IMAGING: The patient had a CT of the chest on 03/21/2017. Showed bilateral upper lobe pneumonia, chronic, no new infiltrate. ASSESSMENT AND PLAN This is a 57-year-old female with the following active issues: 1. Anemia. This is most likely due to chronic kidney disease. I will check iron studies. If iron is low, then we will give intravenous iron. She will qualify for Procrit, as well. 2. Thrombocytopenia. This is new. This started after her infection. This is most likely due to infection. I reviewed the peripheral Unit #: [id number] #: [id number] Patient: SIMON BERNSTEIN. Alternatively, this could be ITP. At present we will observe. She is taking Plavix and tolerating. 3. Other conditions. The patient has COPD, CHF, diabetes, hypertension. They are all stable. Dyspnea on exertion and shortness of breath are improving. Dictated by... Linnea Sorenson TD: 03/25/2017 16:01 JOB #: [id number] CONSULTATION REPORT Page 1 of 1 X Maggy Koehler MD X CONSULTATION REPORT
--- NOTE | ~2017-03-20 | HP ---
Unit #: [id number] #: [id number] Patient: SIMON BERNSTEIN [id number] [address] [place], [place] [address] [id number] I MR#: [id number] NAME: SIMON BERNSTEIN ROOM: 44040 Age: 57 Sex: F Admission Date: 03/20/2017 : 1960 Attending Physician: Leoncio Willis M.D. Primary Care Physician: Edgar Goodrich M.D. HISTORY AND PHYSICAL CHIEF COMPLAINT Shortness of breath. HISTORY OF PRESENT ILLNESS The patient is a 57-year-old female with a history of multiple medical problems including chronic respiratory failure and coronary artery disease with a diastolic congestive heart failure, chronic kidney disease, diabetes, was recently discharged from the hospital on March 17, brought to the emergency room with a worsening shortness of breath. The patient was found to be hypoxic at the time of arrival with the sats in the range of 66 at room air. The patient has been started on the BiPAP. The patient stated that the patient has started having shortness of breath since yesterday and patient is a resident of the [facility], denies any fever, chills, nausea or vomiting. The patient had a chest x-ray that shows no changes from the previous x-ray with the cardiomegaly with the patchy diffuse infiltrate concerning for the pneumonia versus pulmonary edema. The patient has been started on the nitroglycerin drip and patient started feeling better after the diuresis. PAST MEDICAL HISTORY History of a chronic cystitis with a bladder tumor, hypertension, chronic kidney disease stage 3, history of MRSA, subarachnoid hemorrhage, coronary artery disease, diabetes, chronic constipation, depression, back pain, morbid obesity. PAST SURGICAL HISTORY Bilateral tubal ligation and left retroperitoneal abscess requiring I/D and inferior pubic ramus fracture and nondisplaced fracture of the right acetabulum, bilateral shoulder surgery. SOCIAL HISTORY The patient lives at [facility] under the care of Dr. Goodrich, history of tobacco use half a pack per day, does not drink alcohol. FAMILY HISTORY Positive for coronary artery disease, lung cancer, diabetes, hypertension. ALLERGIES No known drug allergies. MEDICATION FROM THE [facility] Patient is on Amitiza, Plavix, isosorbide, duloxetine, Tradjenta, Loratadine, aspirin, Keppra, gabapentin, metoprolol, amantadine, Protonix, Unit #: [id number] #: [id number] Patient: SIMON BERNSTEIN furosemide, Zocor, NovoLog, Levemir. REVIEW OF SYMPTOMS Unable to obtain as the patient is on a BiPAP and is more lethargic and answers the questions "yes" and "no." PHYSICAL EXAMINATION GENERAL APPEARANCE: On examination the patient is lying on a bed not in acute distress. VITAL SIGNS: Temperature 98.1, pulse 79, respiratory rate 32, blood pressure 154/102, sating 66% at room air. HEENT: Head atraumatic and normocephalic. Pupils equal, round and reacting to light and accommodation. Dry mucous membrane. NECK: Supple. LUNGS: Decreased air entry at the bases. Positive for rales. Heart regular rate and rhythm with the murmur. ABDOMEN: Soft, positive bowel sounds. EXTREMITIES: Positive for edema. No ulcers. NEUROLOGIC: Patient is alert, awake, oriented. No gross focal motor deficit. DIAGNOSTIC STUDIES LABORATORY DATA: Troponin is less than 0.05, BNP is 1126, sodium 139, potassium 4.2, chloride 99, bicarb 29m glucose 222, BUN 50, creatinine 3.2, WBC 14.1, hemoglobin 9.6, hematocrit 31.7, platelets 138. IMAGING: The chest x-ray shows no changes from 03/15 with cardiomegaly, bilateral diffuse patchy infiltrates concerning for pulmonary edema/pneumonia. CARDIOVASCULAR: EKG shows normal sinus rhythm with an old inferior infarct. ASSESSMENT 1. Acute respiratory failure. 2. [id number]-[id number] diastolic congestive heart failure. 3. Chronic kidney disease stage 3. PLAN Plan to admit the patient to the inpatient in the ICU. Patient will have a pulmonary consult with Dr. Duong and cardiology consult with Dr. Maradiaga, has seen in the past. Continue with the dialysis with the Lasix 80 mg IV dine in the ER and continue with the Lasix 80 mg daily and check the ABG if it is not done and wean off the BiPAP and continue with the low dose sliding scale and check the procalcitonin level to rule out infectious etiology and check the lactic acid, if it is high then initiate the sepsis protocol and further recommendations will follow as more labs results are available. Dictated by Linnea Guzman Unit #: [id number] #: [id number] Patient: SIMON BERNSTEIN TD: 03/20/2017 19:29 JOB #: [id number] HISTORY AND PHYSICAL Page 1 of 1 X LEONCIO WILLIS MD X HISTORY AND PHYSICAL
--- NOTE | ~2017-03-20 | DS ---
Unit #: [id number] #: [id number] Patient: SIMON BERNSTEIN [id number] [address] [place], [place] [address] [id number] I MR#: [id number] NAME: SIMON BERNSTEIN ROOM: 57 Age: 57 Sex: F Admission Date: 03/20/2017 : 1960 Discharge Date: Attending Physician: Lilliam Lynch M.D. Primary Care Physician: Edgar Goodrich M.D. DISCHARGE SUMMARY ADDENDUM The patient was originally discharged to [facility] on 03/27/17. However, the patient was not discharged at that time secondary to the need to arrange the patient's antibiotics at the rehab facility, as well as the need for staff to be trained at that facility on the Trilogy device. The patient's vital signs and lab work has remained stable since that time. Please note the patient had a midline placed for continuation of IV Zosyn therapy through 04/02/17. The midline is to be removed after the patient receives her last dose of IV antibiotic on April 02, 2017. The patient has also completed her 5-day course of prednisone, so that has been discontinued on the patient's discharge medication reconciliation form. The critical care rn has been in communication with [facility], and based on her understanding, representatives from [employer] are at the facility at this time educating the staff on this device. The patient will be discharged back to [facility] once confirmation is received that the staff has been adequately trained to manage the patient on this device. The only change on the patient's discharge medication reconciliation form, which is dated 03/27/17, is discontinuation of the prednisone. Dictated by... Jina Dominguez A.P.R.N. for Linnea Noland/francis TD: 03/31/2017 13:45 JOB #: [id number] DISCHARGE SUMMARY Page 1 of 1 X Alberto,Jina L CHEMISTRY DEPARTMENT CHAIR X DISCHARGE SUMMARY
--- NOTE | ~2017-03-20 | CR72 ---
[facility] A Service of [facility] RADIOLOGY TEXT RESULTS PATIENT: SIMON BERNSTEIN LOCATION: [place] [address] : [birth year] UNIT #: [id number] AGE: [address]: Lilliam Lynch MD SEX: F ORDER DR: [id number] [facility] [address] [place], [place] [address] [id number] I MR#: [id number] Acc #: [id number] NAME: SIMON BERNSTEIN : 1960 SEX: F STUDY DATE/TIME: 03/20/2017 16:52 UNIT: [facility] ROOM: [facility] STUDY DESCRIPTION: CR Chest Single View Portable Attending Physician: Katy Willis M.D. Ordering Physician: Faheem Mcwilliams M.D. Primary Care Physician: Edgar Goodrich M.D. MEDICAL IMAGING REPORT This report is preliminary unless electronic signature is present EXAM Portable chest, 03/20/2017. HISTORY Shortness of breath, cough and chest congestion today. FINDINGS The cardiac and mediastinal structures are stable compared with 03/15/2017. Interstitial infiltrates are unchanged, probably reflecting pulmonary edema. There are no pleural effusions. No pneumothorax. IMPRESSION No interval change compared with 03/15/2017. Dictated by... Ángel Levine M.D. THIS IS AN ELECTRONICALLY VERIFIED REPORT Ángel Levine M.D. at 03/21/2017 2:14 PM DESTINI/angelo TD: 03/21/2017 01:21 JOB #: [id number] MEDICAL IMAGING REPORT Page 1 of 1 COPY
--- NOTE | ~2017-03-20 | DS ---
Unit #: [id number] #: [id number] Patient: SIMON BERNSTEIN [id number] [address] [address] [id number] I MR#: [id number] NAME: SIMON BERNSTEIN ROOM: 57 Age: 57 Sex: F Admission Date: 03/20/2017 : 1960 Discharge Date: 03/31/2017 Attending Physician: Lilliam Lynch M.D. Primary Care Physician: Edgar Goodrich M.D. DISCHARGE SUMMARY ADDENDUM Please see discharge summary dictated from 03/27/2017 for details of hospital course. Subsequently, the patient was kept in the hospital for logistical reasons to set up her Trilogy machine. While here, she did receive Venofer IV x1. A midline was placed as well. The patient will be transitioned to [facility] later this afternoon for ongoing care. No further changes in the above discharge summary and/or hospital course. Dictated by... Linnea Noland/sonal TD: 03/30/2017 15:21 JOB #: [id number] DISCHARGE SUMMARY Page 1 of 1 X Lilliam Lynch MD X DISCHARGE SUMMARY
--- NOTE | ~2017-03-20 | A ---
[facility] Nutrition Therapy DATE: 03/30/17 Patient: SIMON BERNSTEIN Physician: JENNIFER Address: [facility] Room/Bed: [address] [place] [address], Zip: [place] [address] Admit Date: 03/20/17 Date of : 60 Height: 5 6 Weight: 214 97.3 NUTRITIONAL ASSESSMENT: REASON: LOS Dx: 57 y/o female admitted for SOA PMH: CHF, CKD 3, cystitis, HTN, CAD, DM, MRSA, depression Anthropometrics: ht: 5'6" wt: 214# (97 kg) BMI: 34 Labs: Na+ 133, Cl- 92, Glu 244, BUN 87, Creat 2.9, Alb 3.4, accuchecks 120-180, GFR 17.3 Meds: furosemide, protonix, novolog, prednisone, xanax, levemir I/O & Bowel function: 750/1025. BM 03/28 Skin Integrity: redness- buttocks, coccyx, abd folds Assessment: Chart reviewed, events noted. Pt seen for LOS. Pt is a resident of [facility]. RD internet marketer spoke to pt at bedside. Pt reports eating 100% of her meals and having a good appetite both here and at the residential. Pt reports that her weight of 214# is stable. RD internet marketer offered to order supplements for pt to ensure adequate intake, but pt refused. Pt reported no questions at this time. RD will remain available. Dx: Obesity class I r/t lifestyle, PMH AEB BMI of 34 Intervention: 1. Healthy heart diet Monitoring, Evaluation and Goals: 1. Intake; consume >50% of all meals 2. Weight; promote gradual weight loss 3. GI; promote regular GI function 4. Skin; prevent skin breakdown Recommendations: 1. Continue current healthy heart diet. Add consistent carbohydrate diet restriction to promote glycemic control. 2. Encourage adequate PO intake. Pt is at mild nutritional risk. RD will follow hospital course per protocol. [facility] Nutrition Therapy DATE: 03/30/17 Patient: SIMON BERNSTEIN Physician: [id number] Address: [facility] Room/Bed: [address] [place] [address], Zip: [place] [address] Admit Date: 03/20/17 Date of : [birth year] Height: 5 6 Weight: 214 97.3 Respectfully, RICHAR GUZMAN, unpaid intern Cari Catalan RD, LD [employer] [facility] [place] [facility] cc: client file
--- NOTE | ~2017-03-20 | CT57 ---
[facility] A Service of [facility] & [facility] RADIOLOGY TEXT RESULTS PATIENT: SIMON BERNSTEIN LOCATION: [facility] 577-01 : 60 UNIT #: [id number] AGE: [address]: Lilliam Lynch MD SEX: F ORDER DR: [id number] [facility] [address]. [place], [place] [address] [id number] I MR#: [id number] Acc #: [id number] NAME: SIMON BERNSTEIN : 1960 SEX: F STUDY DATE/TIME: 03/21/2017 12:03 UNIT: [facility] ROOM: [facility] STUDY DESCRIPTION: CT Chest Wo Cont Attending Physician: Lilliam Lynch M.D. Ordering Physician: Amanda Duong M.D. Primary Care Physician: Edgar Goodrich M.D. MEDICAL IMAGING REPORT This report is preliminary unless electronic signature is present EXAM CT chest without contrast HISTORY Respiratory distress today. Chronic respiratory failure. This CT exam was performed with one or more of the following radiation dose reduction techniques: automatic exposure control, adjustment of mA and/or kV according to patient size, and iterative reconstruction. FINDINGS CT chest without contrast is compared to 02/28/2017 CT. There has been partial interval clearing of the moderate multifocal patchy infiltrates in the bilateral upper lobes. There has also been partial interval clearing of mild atelectasis in the posterior lower lobes. Minimal right pleural effusion is similar to the prior CT. Stable mild right paratracheal adenopathy measuring 1.2 cm and subcarinal adenopathy measuring 1.8 cm. Borderline enlarged anterior right cardiophrenic angle node measures 9 mm. Multiple old or healing bilateral rib fractures. IMPRESSION 1. Partial interval clearing of moderate multifocal patchy infiltrates in the bilateral upper lobes compared to CT 02/28/2017. 2. There has also been partial clearing of mild atelectasis in the posterior lower lobes. 3. No new pulmonary infiltrates. 4. Stable mild right paratracheal and subcarinal adenopathy is nonspecific and could be reactive or inflammatory. 5. Again noted are multiple old or healing bilateral rib fractures. STS. [facility] A Service of [facility] & [facility] RADIOLOGY TEXT RESULTS PATIENT: SIMON BERNSTEIN LOCATION: [facility] 577-01 : [birth year] UNIT #: [id number] AGE: [address]: Lilliam Lynch MD SEX: F ORDER DR: Dictated by... Wellington Solano M.D. THIS IS AN ELECTRONICALLY VERIFIED REPORT Wellington Solano M.D. at 03/22/2017 5:34 PM NIKHIL/amber TD: 03/22/2017 02:34 JOB #: [id number] MEDICAL IMAGING REPORT Page 1 of 1 COPY
--- NOTE | ~2017-03-20 | CO ---
Unit #: [id number] #: [id number] Patient: YOKASTA BERNSTEIN [id number] [address] [place], [place] [address] [id number] I MR#: [id number] NAME: YOKASTA BERNSTEIN ROOM: 577 Age: 57 Sex: F Admission Date: 03/20/2017 : 1960 Attending Physician: Lilliam Lynch M.D. Primary Care Physician: Edgar Goodrich M.D. Consultation Date: 03/22/2017 CONSULTATION REPORT REASON FOR CONSULTATION Renal insufficiency. Thank you very much for asking me to see this patient in consultation. HISTORY OF PRESENT ILLNESS Ms. Yokasta Bernstein is a 57-year-old female, who was just discharged middle of last week, where she was in the hospital for possible pneumonia and congestive heart failure. She has a history of chronic kidney disease, followed by Dr. Michaud in our office with creatinine of 1.8 in October, was up in the low 3 range during February hospitalization, was 3.0 when she was discharged. She presented again here, again yesterday with increasing shortness of breath. We were consulted last evening. The patient is noted to have an increased BUN and creatinine of 61 and 3.2. She has been placed on IV Bumex and states her breathing is better. She is being again admitted for treatment with possible congestive heart failure, although she has had a normal ejection fraction in the past and it was felt to be possible diastolic dysfunction as well as there was according to my partner Dr. Jackson, she was supposed to have a CO2 angiogram at some point as an outpatient looking at her renal arteries to rule out renal artery stenosis with flash pulmonary edema. That has not been done yet. Again today, she states she is feeling better. Shortness of breath has improved. No chest pain, nausea, or vomiting. PAST MEDICAL HISTORY History of chronic kidney disease, stage 3 with creatinine in October of 1.8, although 3.0 plus or minus in 02/2017. History of diabetes mellitus, history of hypertension, history of nonsteroidal use in the past, history of CVA, history of bladder tumor cystitis in the past, history of atherosclerotic coronary artery disease status post SD and stent in 09/2016 with an EF of 62%, history of craniotomy status post subarachnoid hemorrhage, history of seizure disorder, history of obesity, history of a retroperitoneal abscess and drainage in the past on the left side. ALLERGIES No known drug allergies. SOCIAL HISTORY Positive smoker. Lives in long-term rehab. No alcohol. MEDICATIONS Have been reviewed. REVIEW OF SYSTEMS Unit #: [id number] #: [id number] Patient: YOKASTA BERNSTEIN She denies any fevers, chills, visual problems, sinus problems, cough, hemoptysis, sore throat, difficulty swallowing. She denies any neck pain, neck stiffness. No chest pain, chest heaviness, or palpitations. She has had increased shortness of breath. No severe abdominal pain. No urinary symptoms. No recent seizures, strokes, or skin rashes. FAMILY HISTORY Positive for diabetes, hypertension, and heart disease. Negative for kidney disease. PHYSICAL EXAMINATION GENERAL: She is alert and oriented. VITAL SIGNS: Temperature is 97.5, pulse 56 to 100, blood pressure 110 to 173 over 50s to 70s when she came in, it was 154/102. HEENT: She is normocephalic and atraumatic. Pupils are equal, round, and reactive to light. Extraocular muscles are intact. Hearing appears to be normal. Mouth clear. No erythema. No exudate. NECK: Supple. No JVD. No adenopathy. CARDIAC: Appears to have a regular rhythm without a rub. No S3 or S4. LUNGS: Have decreased breath sounds at bases. Upper lungs are clear. No wheezes or rhonchi appreciated. ABDOMEN: Overweight, bowel sounds positive. Nontender. Soft. No masses felt. No hepato-organomegaly noted. EXTREMITIES: She has some very trace lower extremity swelling on the left greater than right. : Deferred. NEURO: She has some weakness on her left side which is chronic. SKIN: No rashes. DIAGNOSTIC STUDIES LABORATORY RESULTS: Laboratory data today showed sodium of 135, potassium 5.5, chloride is 94, bicarb is 33, BUN and creatinine are 61 and 3.2, glucose of 333. Calcium is 9.0, magnesium is 2.2. BNP is 1142. Again in 10/2006 creatinine was 1.8. In February, creatinine ranged between 2.7 and 3.0. She also has a hemoglobin of 8.2, now white count of 6000, platelets 90,000. ASSESSMENT/PLAN 1. Chronic kidney disease, stage 3 with either progression of chronic kidney disease or acute on chronic. We will check UA culture and sensitivity. I agree with some IV diuretics still and change him over to oral tomorrow depending on what her urine shows any further workup or treatment how her renal function does. Certainly, with this intermittent pulmonary edema, I do think it is reasonable to look at her renal arteries and we will order a CO2 angiogram on Wednesday. If the patient is still here or not, we will continue to try to get as an outpatient. For now, would avoid angiotensin receptor blockers and GABRIELLE inhibitors as well. 2. Hyperkalemia. The patient with increased potassium today, it was okay yesterday. It is probably multifactorial secondary to increase glucose, renal insufficiency, etc. The patient was given Kayexalate x1 by primary. We will just recheck in a.m. put on low-potassium diet. 3. Congestive heart failure, again on IV diuretics. 4. Diabetes mellitus. 5. Hypertension. As mentioned above. Dictated by... Unit #: [id number] #: [id number] Patient: YOKASTA BERNSTEIN M.D. WAD/sonal TD: 03/23/2017 01:35 JOB #: [id number] CONSULTATION REPORT Page 1 of 1 X Nicolasa Belle MD X CONSULTATION REPORT
--- NOTE | ~2017-03-20 | CO ---
Unit #: [id number] #: [id number] Patient: SIMON BERNSTEIN [id number] [address] [place], [place] [address] [id number] I MR#: [id number] NAME: SIMON BERNSTEIN ROOM: 577 Age: 57 Sex: F Admission Date: 03/20/2017 : 1960 Attending Physician: Lilliam Lynch M.D. Primary Care Physician: Edgar Goodrich M.D. Consultation Date: 03/26/2017 CONSULTATION REPORT REASON FOR CONSULTATION Anemia and Hemoccult-positive stool. HISTORY OF PRESENTING ILLNESS Ms. Amato is a 57-year-old lady, who is typically at the custodial since the stroke 9 years ago, was admitted with shortness of breath and was treated for pneumonia and congestive heart failure, worsening. She was noted to be severely anemic and I was consulted for evaluation. Stool was tested positive for occult blood also. The patient denies any history of dysphagia, nausea, vomiting, or hematemesis. She denies any abdominal pain. She denies any history of ulcer disease or surgeries in the stomach. She denies any history of blood in the stool or change in bowel movements. She has never had an upper endoscopy and colonoscopy. PAST MEDICAL HISTORY Significant for chronic kidney disease, history of stroke, history of hypertension, diabetes mellitus, and coronary artery disease. ALLERGIES None. SOCIAL HISTORY Smoker. Lives in [facility]. Nonalcoholic. No drugs. MEDICATIONS List reviewed, includes Plavix. REVIEW OF SYSTEMS A complete 10-point review of systems was done, which was unremarkable other than as mentioned above. PHYSICAL EXAMINATION VITAL SIGNS: Stable. Afebrile. Temperature 97.5, pulse 68, and respirations 16. HEENT: Pupils are equal and reactive. Sclerae are anicteric. Oral mucosa is moist. NECK: No JVD. No lymphadenopathy. CHEST: Clear to auscultation. Few scattered rhonchi. CARDIOVASCULAR: Regular rate and rhythm. No murmurs. ABDOMEN: Soft and nontender. She is obese. No organomegaly or ascites. EXTREMITIES: Without clubbing, cyanosis, or edema. NEUROLOGIC: Grossly intact. Unit #: [id number] #: [id number] Patient: SIMON BERNSTEIN DIAGNOSTIC STUDIES LABORATORY RESULTS: Hemoglobin of 8 and platelet count of 101. Transferrin saturation 18%, which is low; ferritin 110. BUN and creatinine of 86 and 3.0. ASSESSMENT AND PLAN The patient with severe anemia, Hemoccult-positive stool. She has been on Plavix therapy also. She will need panendoscopy. We will plan on doing this as an outpatient off her Plavix. Risks and benefits were discussed. The patient is agreeable. Plan is to do it over the next few weeks. At this time, we will continue with Protonix for now. She is also at high risk secondary to raise for colon cancer and colonoscopy will be considered at the same time for the same. Since there is no overt bleeding and the patient seems to be stable, she will be discharged with this plan. Thank you Dr. Lynch for this interesting consult. We will follow along. Dictated by... Linnea Card/sonal TD: 03/28/2017 16:05 JOB #: [id number] CONSULTATION REPORT Page 1 of 1 X Lionel Tubbs MD X CONSULTATION REPORT
--- NOTE | ~2017-03-20 | EKG ---
PATIENT: SIMON BERNSTEIN UNIT #: [id number] Ventricular Rate: 79 BPM Atrial Rate: 79 BPM P-R Interval: 130 ms QRS Duration: 84 ms Q-T Interval: 380 ms QTC Calculation(Bezet): 435 ms P [place]: 15 degrees Calculated R [place]: 19 degrees Calculated T [place]: -72 degrees Diagnosis Line: Suspect unspecified pacemaker failure Diagnosis Line: Normal sinus rhythm Diagnosis Line: Inferior infarct (cited on or before 03-MAR-2017) Diagnosis Line: Abnormal ECG Diagnosis Line: When compared with ECG of 14-MAR-2017 22:26, Diagnosis Line: No significant change was found Diagnosis Line: Confirmed by JAZLYN GAITAN MD ([id number]) on Diagnosis Line: 03/22/2017 11:05:52 AM INTERPRETING MD: KANDY SCHWARTZ
--- NOTE | ~2017-03-20 | CO ---
Unit #: [id number] #: [id number] Patient: SIMON BERNSTEIN [id number] [address] [address] [id number] I MR#: [id number] NAME: SIMON BERNSTEIN ROOM: [facility] Age: 57 Sex: F Admission Date: 03/20/2017 : 1960 Attending Physician: Lilliam Lynch M.D. Primary Care Physician: Edgar Goodrich M.D. CONSULTATION REPORT REASON FOR CONSULTATION Respiratory failure. HISTORY OF PRESENT ILLNESS A 57-year-old female known to me from previous admission. Has a past medical history of chronic kidney disease, obstructive sleep apnea, subarachnoid hemorrhage, coronary artery disease, diabetes, chronic constipation, depression, back pain, morbid obesity who presents with a complaint of shortness of breath, was admitted with acute respiratory failure. I am seeing her at the bedside, complaining of shortness of breath. Denies any nausea, vomiting, diarrhea. REVIEW OF SYSTEMS Positive for pallor. Positive for edema. No cyanosis. No jaundice. Rest of 12-point review of system has been reviewed and is negative. PAST MEDICAL HISTORY As described above. PAST SURGICAL HISTORY 1. Status post incision and drainage of abscess. 2. Bilateral shoulder surgery. SOCIAL HISTORY Half pack smoker per day. Does not drink alcohol. FAMILY HISTORY Coronary artery disease, lung cancer, diabetes, hypertension. MEDICATIONS 1. Amitiza. 2. Plavix. 3. Isosorbide. 4. Duloxetine. 5. Tradjenta. 6. Loratadine. 7. Aspirin. 8. Keppra. 9. Neurontin. 10. Metoprolol. 11. Amantadine. 12. Protonix. 13. Lasix. 14. Zocor. Unit #: [id number] #: [id number] Patient: SIMON BERNSTEIN 15. NovoLog. 16. Levemir. PHYSICAL EXAMINATION VITAL SIGNS: Temperature 98, pulse 79, respirations 16, blood pressure 154/102. NEUROLOGIC: Awake, alert, oriented. No neuro deficit. HEENT: PERRLA plus 1. NECK: Supple. No JVD. CHEST: Bilateral air entry. Bilateral mild rhonchi. GASTROINTESTINAL: Nontender, soft. Bowel sounds positive. EXTREMITIES: Positive edema. SKIN: No rash. No ulcer. LYMPHATIC: No lymphadenopathy. DIAGNOSTIC STUDIES LABORATORY: Blood gas: A pH 7.38, pCO2 of 50, pO2 is 62. Creatinine is 3.4, sodium 138. BNP 1126. White count 6, hemoglobin 8, hematocrit 25, platelet count 90,000. IMAGING: Chest x-ray on admission showed interstitial infiltrates, probably reflecting pulmonary edema. ASSESSMENT 1. Acute exacerbation of chronic obstructive pulmonary disease. 2. Acute bronchitis. 3. Recent pneumonia. 4. Obstructive sleep apnea. 5. Diastolic heart failure. 6. Chronic kidney disease. 7. Thrombocytopenia. PLAN At this point, plan is to continue patient on oxygen, bronchodilator, diuretics, BiPAP, IV steroids, IV antibiotics. Please see orders for detailed plan. We will continue to follow the patient. Will order noncontrast CT of the chest and procalcitonin level as well. Thank you very much for this consultation. Dictated by... Linnea Valverde TD: 03/21/2017 11:32 JOB #: [id number] Unit #: [id number] #: [id number] Patient: SIMON BERNSTEIN CONSULTATION REPORT Page 1 of 1 X Amanda Duong MD X CONSULTATION REPORT
[2017-03-20 16:16] LABS: BASOPHIL% 0.3 % (0-2.5); EOSINOPHIL# 0.5 X10e3 (0-0.7); EOSINOPHIL% 3.6 % (0.0-7.0); HEMATOCRIT 31.7 % (35.0-45.0); HEMOGLOBIN 9.6 gm/dL (12.0-16.0); LYMPHOCYTE# 1.7 X10e3 (1.0-3.5); LYMPHOCYTE% 12.1 % (17.0-45.0); MEAN CELL VOLUME 91.4 FL (83-96); MEAN CORPUSCULAR HEMOGLOBIN 27.6 PG (28-34); MEAN CORPUSCULAR HGB CONC 30.2 g/dL (30-36); MEAN PLATELET VOLUME 8.5 FL (6.5-11.5); MONOCYTE# 1.1 X10e3 (0-1.0); NEUTROPHIL# 10.7 X10e3 (1.5-7.1); PLATELET COUNT 138 X10e3 (140-420); RED BLOOD COUNT 3.47 X10e (3.90-5.30); RED CELL DISTRIBUTION WIDTH 18.9 % (11.0-15.5); WHITE BLOOD COUNT 14.1 X10e3 (4.0-10.5)
[2017-03-20 16:22] LABS: DIFF IND NO
[2017-03-20 16:39] LABS: BUN/CREATININE RATIO 15.62; CALCIUM SERUM 9.5 mg/dL (8.4-10.2); CREATININE SERUM 3.2 mg/dL (0.6-1.4); GLOM FILT RATE Estimated 15.3 mL/min (>60); POTASSIUM 4.2 mmol/L (3.5-5.1)
[2017-03-20 18:21] LABS: POC - TROPONIN <0.05 ng/mL (<=0.05)
[2017-03-20 18:52] LABS: POC - CKMB 3.6 ng/mL (0.0-7.9); POC - TROPONIN <0.05 ng/mL (<=0.05)
[2017-03-20 19:21] LABS: ARTERIAL BLOOD GAS CARBOXY HB 1.5 %sat (0.0-9.0); ARTERIAL BLOOD GAS HCO3 30.6 mmol/L; ARTERIAL BLOOD GAS MET HB 1.1 %sat (0.0-2.0); ARTERIAL BLOOD GAS pH 7.367 (7.350-7.450)
[2017-03-20 19:23] LABS: ARTERIAL BLOOD GAS ALLEN TEST NORMAL; ARTERIAL BLOOD GAS ART SITE LEFT RADIAL; ARTERIAL BLOOD GAS DELIVERY BIPAP 14/6; ARTERIAL BLOOD GAS PCO2 53.3 mmHg (35.0-45.0); ARTERIAL DRAW? YES
[2017-03-21 04:42] LABS: ARTERIAL BLD GAS O2 SATURATION 90.5 % (90.0-100.0); ARTERIAL BLOOD GAS CARBOXY HB 1.7 %sat (0.0-9.0); ARTERIAL BLOOD GAS HCO3 30.3 mmol/L; ARTERIAL BLOOD GAS MET HB 0.9 %sat (0.0-2.0); ARTERIAL BLOOD GAS pH 7.387 (7.350-7.450)
[2017-03-21 04:48] LABS: ARTERIAL BLOOD GAS ALLEN TEST NORMAL; ARTERIAL BLOOD GAS ART SITE RIGHT RADIAL; ARTERIAL BLOOD GAS DELIVERY ROOM AIR; ARTERIAL BLOOD GAS PCO2 50.4 mmHg (35.0-45.0); ARTERIAL BLOOD GAS PO2 62.6 mmHg (80.0-100); ARTERIAL DRAW? YES
[2017-03-21 06:02] LABS: HEMATOCRIT 25.8 % (35.0-45.0); HEMOGLOBIN 8.2 gm/dL (12.0-16.0); MEAN CORPUSCULAR HEMOGLOBIN 28.2 PG (28-34); MEAN CORPUSCULAR HGB CONC 31.6 g/dL (30-36); MEAN PLATELET VOLUME 8.4 FL (6.5-11.5); RED BLOOD COUNT 2.9 X10e (3.90-5.30); RED CELL DISTRIBUTION WIDTH 18.4 % (11.0-15.5)
[2017-03-21 06:33] LABS: BUN/CREATININE RATIO 15.88; CALCIUM SERUM 9.2 mg/dL (8.4-10.2); CREATININE SERUM 3.4 mg/dL (0.6-1.4); GLOM FILT RATE Estimated 14.2 mL/min (>60); POTASSIUM 4.9 mmol/L (3.5-5.1)
[2017-03-21 07:01] LABS: PROCALCITONIN 1.7 NG/ML
[2017-03-22 06:35] LABS: BUN/CREATININE RATIO 19.06; CREATININE SERUM 3.2 mg/dL (0.6-1.4); GLOM FILT RATE Estimated 15.3 mL/min (>60); MAGNESIUM 2.2 mg/dL (1.6-3.0)
[2017-03-22 06:36] LABS: POTASSIUM 5.5 mmol/L (3.5-5.1)
[2017-03-23 04:43] LABS: ARTERIAL BLD GAS O2 SATURATION 98.4 % (90.0-100.0); ARTERIAL BLOOD GAS CARBOXY HB 1.1 %sat (0.0-9.0); ARTERIAL BLOOD GAS HCO3 34.7 mmol/L; ARTERIAL BLOOD GAS MET HB 0.9 %sat (0.0-2.0); ARTERIAL BLOOD GAS pH 7.352 (7.350-7.450)
[2017-03-23 04:44] LABS: ARTERIAL BLOOD GAS ALLEN TEST NORMAL; ARTERIAL BLOOD GAS ART SITE LEFT RADIAL; ARTERIAL BLOOD GAS DELIVERY BIPAP 14/6; ARTERIAL BLOOD GAS PCO2 62.7 mmHg (35.0-45.0); ARTERIAL DRAW? YES
[2017-03-23 05:37] LABS: BASOPHIL% 0.1 % (0-2.5); HEMATOCRIT 22.9 % (35.0-45.0); HEMOGLOBIN 7.3 gm/dL (12.0-16.0); LYMPHOCYTE# 0.3 X10e3 (1.0-3.5); LYMPHOCYTE% 3.6 % (17.0-45.0); MEAN CELL VOLUME 89.2 FL (83-96); MEAN CORPUSCULAR HEMOGLOBIN 28.3 PG (28-34); MEAN CORPUSCULAR HGB CONC 31.7 g/dL (30-36); MEAN PLATELET VOLUME 8.7 FL (6.5-11.5); MONOCYTE# 0.4 X10e3 (0-1.0); MONOCYTE% 5.1 % (3.0-12.0); NEUTROPHIL# 6.6 X10e3 (1.5-7.1); NEUTROPHIL% 91.2 % (40-75); PLATELET COUNT 87 X10e3 (140-420); RED BLOOD COUNT 2.56 X10e (3.90-5.30); RED CELL DISTRIBUTION WIDTH 18.5 % (11.0-15.5); WHITE BLOOD COUNT 7.3 X10e3 (4.0-10.5)
[2017-03-23 05:40] LABS: DIFF IND YES
[2017-03-23 06:49] LABS: ANISOCYTOSIS SL; MICROCYTOSIS SL; PLATELET ESTIMATE DECREASED (NORMAL)
[2017-03-23 07:45] LABS: ALBUMIN SERUM 3.3 g/dL (3.5-5.0); BILIRUBIN,TOTAL 0.3 mg/dL (0.2-2.0); BUN/CREATININE RATIO 22.5; CALCIUM SERUM 8.9 mg/dL (8.4-10.2); CREATININE SERUM 3.2 mg/dL (0.6-1.4); GLOM FILT RATE Estimated 15.3 mL/min (>60); MAGNESIUM 2.1 mg/dL (1.6-3.0); PHOSPHOROUS 4.9 mg/dL (2.5-4.6); PROTEIN TOTAL SERUM 6.9 g/dL (6.0-8.3)
[2017-03-23 12:16] LABS: HEMOGLOBIN 7.6 gm/dL (12.0-16.0)
[2017-03-24 05:53] LABS: HEMATOCRIT 25.1 % (35.0-45.0); MEAN CELL VOLUME 88.8 FL (83-96); MEAN CORPUSCULAR HEMOGLOBIN 28.2 PG (28-34); MEAN CORPUSCULAR HGB CONC 31.8 g/dL (30-36); MEAN PLATELET VOLUME 8.8 FL (6.5-11.5); RED BLOOD COUNT 2.83 X10e (3.90-5.30); RED CELL DISTRIBUTION WIDTH 18.4 % (11.0-15.5); WHITE BLOOD COUNT 7.3 X10e3 (4.0-10.5)
[2017-03-24 07:02] LABS: BUN/CREATININE RATIO 26.12; CALCIUM SERUM 8.8 mg/dL (8.4-10.2); CREATININE SERUM 3.1 mg/dL (0.6-1.4); GLOM FILT RATE Estimated 15.9 mL/min (>60); MAGNESIUM 2.1 mg/dL (1.6-3.0); POTASSIUM 3.7 mmol/L (3.5-5.1)
[2017-03-25 06:56] LABS: HEMATOCRIT 25.7 % (35.0-45.0); HEMOGLOBIN 8.1 gm/dL (12.0-16.0); MEAN CELL VOLUME 88.7 FL (83-96); MEAN CORPUSCULAR HEMOGLOBIN 28.1 PG (28-34); MEAN CORPUSCULAR HGB CONC 31.7 g/dL (30-36); MEAN PLATELET VOLUME 8.3 FL (6.5-11.5); RED BLOOD COUNT 2.9 X10e (3.90-5.30); RED CELL DISTRIBUTION WIDTH 18.6 % (11.0-15.5); WHITE BLOOD COUNT 5.6 X10e3 (4.0-10.5)
[2017-03-25 08:05] LABS: BUN/CREATININE RATIO 26.36; CALCIUM SERUM 8.7 mg/dL (8.4-10.2); CREATININE SERUM 3.3 mg/dL (0.6-1.4); GLOM FILT RATE Estimated 14.8 mL/min (>60)
[2017-03-26 05:41] LABS: HEMATOCRIT 24.9 % (35.0-45.0); MEAN CELL VOLUME 87.8 FL (83-96); MEAN CORPUSCULAR HEMOGLOBIN 28.1 PG (28-34); MEAN PLATELET VOLUME 8.4 FL (6.5-11.5); RED BLOOD COUNT 2.84 X10e (3.90-5.30); WHITE BLOOD COUNT 6.2 X10e3 (4.0-10.5)
[2017-03-26 06:52] LABS: ALBUMIN SERUM 3.4 g/dL (3.5-5.0); BILIRUBIN,TOTAL 0.5 mg/dL (0.2-2.0); BUN/CREATININE RATIO 28.66; CALCIUM SERUM 8.9 mg/dL (8.4-10.2); GLOM FILT RATE Estimated 16.6 mL/min (>60); POTASSIUM 3.6 mmol/L (3.5-5.1); PROTEIN TOTAL SERUM 6.9 g/dL (6.0-8.3)
[2017-03-26 07:49] LABS: FERRITIN 110 ng/mL (11-307)
[2017-03-27 05:19] LABS: HEMATOCRIT 26.5 % (35.0-45.0); HEMOGLOBIN 8.5 gm/dL (12.0-16.0); MEAN CELL VOLUME 88.1 FL (83-96); MEAN CORPUSCULAR HEMOGLOBIN 28.2 PG (28-34); MEAN PLATELET VOLUME 8.9 FL (6.5-11.5); RED BLOOD COUNT 3.01 X10e (3.90-5.30); RED CELL DISTRIBUTION WIDTH 18.7 % (11.0-15.5); WHITE BLOOD COUNT 6.3 X10e3 (4.0-10.5)
[2017-03-27 05:53] LABS: ALBUMIN SERUM 3.4 g/dL (3.5-5.0); BILIRUBIN,TOTAL 0.7 mg/dL (0.2-2.0); BUN/CREATININE RATIO 29.33; CALCIUM SERUM 8.7 mg/dL (8.4-10.2); GLOM FILT RATE Estimated 16.6 mL/min (>60); POTASSIUM 3.7 mmol/L (3.5-5.1); PROTEIN TOTAL SERUM 6.9 g/dL (6.0-8.3)
[2017-03-29 06:12] LABS: HEMOGLOBIN 8.5 gm/dL (12.0-16.0); MEAN CELL VOLUME 88.2 FL (83-96); MEAN CORPUSCULAR HEMOGLOBIN 27.9 PG (28-34); MEAN CORPUSCULAR HGB CONC 31.7 g/dL (30-36); MEAN PLATELET VOLUME 8.6 FL (6.5-11.5); RED BLOOD COUNT 3.06 X10e (3.90-5.30); RED CELL DISTRIBUTION WIDTH 18.3 % (11.0-15.5); WHITE BLOOD COUNT 7.3 X10e3 (4.0-10.5)
[2017-03-29 06:37] LABS: CREATININE SERUM 2.9 mg/dL (0.6-1.4); GLOM FILT RATE Estimated 17.3 mL/min (>60); PHOSPHOROUS 3.7 mg/dL (2.5-4.6); POTASSIUM 3.7 mmol/L (3.5-5.1)
[2017-03-31 05:23] LABS: HEMATOCRIT 27.9 % (35.0-45.0); HEMOGLOBIN 8.9 gm/dL (12.0-16.0); MEAN CELL VOLUME 87.7 FL (83-96); MEAN PLATELET VOLUME 8.1 FL (6.5-11.5); RED BLOOD COUNT 3.18 X10e (3.90-5.30); RED CELL DISTRIBUTION WIDTH 18.6 % (11.0-15.5)
[2017-03-31 06:12] LABS: BUN/CREATININE RATIO 26.87; CALCIUM SERUM 9.7 mg/dL (8.4-10.2); CREATININE SERUM 3.2 mg/dL (0.6-1.4); GLOM FILT RATE Estimated 15.3 mL/min (>60); POTASSIUM 3.7 mmol/L (3.5-5.1)
[2017-05-19] MEDS ORDERED: SIMVASTATIN10 MG PO (11:06)
[2017-05-19] MEDS ORDERED: FUROSEMIDE40 MG PO (11:07)
[2017-05-31] MEDS ORDERED: LEVEMIR FL100 UNIT/1 SUBQ (11:00)
[2017-05-31] MEDS ORDERED: PERCOCET10 PO (11:01)
[2017-05-31] MEDS ORDERED: MILK OF MAGNESIA PO (11:01)
[2017-05-31] MEDS ORDERED: ALBUTEROL 0.5ML NEB (11:01)
[2017-05-31] MEDS ORDERED: IPRAT-ALBUT 0.5-3 ML NEB (11:01)
[2017-05-31] MEDS ORDERED: LEVAQUIN PO (11:02)
[2017-05-31] MEDS ORDERED: ZOCOR PO (11:02)
[2017-05-31] MEDS ORDERED: NOVOLOG100 U/ML SUBQ (11:02)
[2017-05-31] MEDS ORDERED: DESYREL50 MG PO (11:02)
[2017-05-31] MEDS ORDERED: FLOMAX0.4 M1 PO (11:02)
[2017-05-31] MEDS ORDERED: SEROQUEL PO (11:02)
[2017-05-31] MEDS ORDERED: FLAGYL PO (11:03)
[2017-05-31] MEDS ORDERED: ALPRAZOLAM0.25 MG PO (11:03)
[2017-05-31] MEDS ORDERED: ACETAMINOPHEN650 M3 PO (11:03)
[2017-05-31] MEDS ORDERED: DOC-Q-LACE100 MG PO (11:04)
[2017-05-31] MEDS ORDERED: FUROSEMIDE40 MG PO (11:04)
[2017-05-31] MEDS ORDERED: LOPRESSOR PO (11:04)
[2017-05-31] MEDS ORDERED: LEVETIRACETAM500 M1 PO (11:04)
[2017-05-31] MEDS ORDERED: DULOXETINE HCL60 MG PO (11:05)
[2017-05-31] MEDS ORDERED: ALDACTONE PO (11:05)
[2017-05-31] MEDS ORDERED: ALLERCLEAR10 MG PO (11:05)
[2017-05-31] MEDS ORDERED: NORVASC PO (11:05)
[2017-05-31] MEDS ORDERED: IMDUR PO (11:05)
[2017-05-31] MEDS ORDERED: ARANESP SUBQ (11:06)
[2017-05-31] MEDS ORDERED: NEURONTIN100 MG PO (11:06)
[2017-05-31] MEDS ORDERED: DITROPAN XL PO (11:07)
[2017-05-31] MEDS ORDERED: LINZESS145 MCG PO (11:07)
[2017-05-31] MEDS ORDERED: TRADJENTA5 MG PO (11:07)
[2017-05-31] MEDS ORDERED: MAGNESIUM400 MG PO (11:07)
[2017-05-31] MEDS ORDERED: MIRALAX17 GM PO (11:07)
[2017-05-31] MEDS ORDERED: AMANTADINE100 M1 PO (11:07)
[2017-05-31] MEDS ORDERED: CALCIUM ACETAT667 MG PO (11:08)
[2017-05-31] MEDS ORDERED: ESOMEPRAZOLE MA20 MG PO (11:08)
[2017-05-31] MEDS ORDERED: CLOPIDOGREL75 MG PO (11:08)
[2017-05-31] MEDS ORDERED: ACID CONTROL150 M1 PO (11:08)
[2017-05-31] MEDS ORDERED: ST JOSEPH ASPIR81 MG PO (11:08)
== END 2017-03-31 16:54 | DRG 291 ==
LOC: CED 15:39 → CEDOF 19:01 → CICCU3 19:01 → CEDOF 20:15 → CICCU3 20:15 → CEDOF 03-21 00:03 → CICCU3 03-21 05:16 → C5C 03-22 17:29
PROVIDERS: Emergency Medicine; Family Medicine; Internal Medicine; Internal Medicine Hematology; Internal Medicine Nephrology; Nurse Practitioner
PROC: 05HD33Z Insertion of Infusion Device into Right Cephalic Vein, Percutaneous Approach (ICD-10-PCS; principal; 2017-03-29)
DX: I13.0 Hypertensive heart and chronic kidney disease with heart failure and stage 1 through stage 4 chronic kidney disease, or unspecified chronic kidney disease (principal); I50.33 Acute on chronic diastolic (congestive) heart failure; J96.21 Acute and chronic respiratory failure with hypoxia; J18.9 Pneumonia, unspecified organism; E11.22 Type 2 diabetes mellitus with diabetic chronic kidney disease; N18.4 Chronic kidney disease, stage 4 (severe); N17.9 Acute kidney failure, unspecified; J44.0 Chronic obstructive pulmonary disease with (acute) lower respiratory infection; D69.6 Thrombocytopenia, unspecified; F03.90 Unspecified dementia, unspecified severity, without behavioral disturbance, psychotic disturbance, mood disturbance, and anxiety; J44.1 Chronic obstructive pulmonary disease with (acute) exacerbation; N39.0 Urinary tract infection, site not specified; E11.65 Type 2 diabetes mellitus with hyperglycemia; Z87.891 Personal history of nicotine dependence; Z79.4 Long term (current) use of insulin; D63.1 Anemia in chronic kidney disease; J20.9 Acute bronchitis, unspecified; M62.3 Immobility syndrome (paraplegic); I69.098 Other sequelae following nontraumatic subarachnoid hemorrhage; I25.10 Atherosclerotic heart disease of native coronary artery without angina pectoris; Z95.5 Presence of coronary angioplasty implant and graft; F32.9 Major depressive disorder, single episode, unspecified; G89.29 Other chronic pain; M54.9 Dorsalgia, unspecified; E66.01 Morbid (severe) obesity due to excess calories; Z68.34 Body mass index [BMI] 34.0-34.9, adult; B96.4 Proteus (mirabilis) (morganii) as the cause of diseases classified elsewhere; G47.33 Obstructive sleep apnea (adult) (pediatric); E87.5 Hyperkalemia; T38.0X5A Adverse effect of glucocorticoids and synthetic analogues, initial encounter; Y92.239 Unspecified place in hospital as the place of occurrence of the external cause; Z79.82 Long term (current) use of aspirin; Z87.01 Personal history of pneumonia (recurrent); Z82.49 Family history of ischemic heart disease and other diseases of the circulatory system; Z80.1 Family history of malignant neoplasm of trachea, bronchus and lung; Z83.3 Family history of diabetes mellitus
CPT/HCPCS: 36600; 71010; 71020; 71250; 80048; 80053; 82274; 82308; 82553; 82607; 82728; 82803; 82947; 83540; 83550; 83605; 83615; 83735; 83880; 84100; 84132; 84484; 85014; 85018; 85025; 85027; 87040; 87086; 87088; 87186; 93005; 94640; 94660; 94760; 94761; 96374; 96375; 97116; 97162; 97166; 97530; 99285; C9113; G8978-GP; G8979-GP; G8987-GO; G8988-GO; G8989-GO; J0696; J1650; J1815; J1940; J2543; J2916; J2920; J2930; Q4081

== ENCOUNTER 2017-04-15 11:10 | Inpatient (IN) | payer MEDICARE, OTHER ==
[~2017-04-15] VITALS: Ht 162.6 cm; Wt 92.8 kg
--- NOTE | ~2017-04-15 | CO ---
Unit #: [id number] #: [id number] Patient: SIMON BERNSTEIN [id number] [facility]. [place], [place] [address] [id number] I MR#: [id number] NAME: SIMON BERNSTEIN ROOM: 311 Age: 57 Sex: F Admission Date: 04/16/2017 : 1960 Attending Physician: Lilliam Lynch M.D. Primary Care Physician: Edgar Goodrich M.D. CONSULTATION REPORT REASON FOR CONSULTATION Congestive heart failure. HISTORY OF PRESENT ILLNESS This is a 57-year-old white female, previously known to our group with multiple hospitalizations. The patient has been admitted three times since 02/27/2017. She is most recently admitted on 03/20/2017 to 03/27/2017 for respiratory failure, acute exacerbation of COPD, and CHF. She required BiPAP at that time, but was ultimately discharged to rehab. Additional past medical history includes coronary artery disease, status post cardiac catheterization in 10/21/2016 which revealed left main normal. Mid LAD had an 80% to 90% stenosis. Left circumflex is normal. Right coronary artery had multiple blockages of 90% to 95%. Acute RV branch was occluded. The ramus was 75% to 80%. She underwent PCI and stent placement in the LAD. 2D echocardiogram in 09/2016 revealed an ejection fraction of 50% to 55%. The patient is known to have hypertension, hyperlipidemia, diabetes mellitus type 2, chronic kidney disease, and seizures. Several years ago, she had cerebral aneurysm, subarachnoid hemorrhage, and had a right craniotomy. She presented to the hospital from rehab with complaints of shortness of breath while she was working with physical therapy. There are no reports of fever or chills. She denies chest pain. There are no reports of dizziness, palpitations, or syncope. She has reportedly been taking all of her medications. PAST MEDICAL HISTORY 1. Previous admission to [facility] on 02/27/2017 through 03/03/2017 for chronic kidney disease and diastolic congestive heart failure. Readmission on 03/14/2017 to 03/17/2017 for congestive heart failure and respiratory failure. Most recent admission 03/20/2017 through 03/27/2017 for respiratory failure, COPD, and congestive heart failure. 2. Coronary artery disease, status post cardiac catheterization on 10/21/2016, which revealed left main normal. Mid LAD 80% to 90%. Left circumflex normal. RCA with multiple 90% lesions before the origin of the acute right ventricular branch. Distal acute RV branch RCA occluded. Posterior LV branch of the PDA filled by retrograde left to right collaterals. Ramus 75% to 80%. Ejection fraction 50% to 55%. Status post PCI and stent in the LAD. 3. 2D echocardiogram on 10/20/2016 revealed mild LVH. Mild mitral and tricuspid regurgitation. Ejection fraction 50% to 55%. Small pericardial effusion versus fat pad. 4. Hypertension. Unit #: [id number] #: [id number] Patient: SIMON BERNSTEIN 5. Hyperlipidemia. 6. Diabetes mellitus, type 2. 7. Chronic diastolic congestive heart failure. 8. Chronic kidney disease. 9. Cerebral aneurysm and subarachnoid hemorrhage, status post right craniotomy years ago. 10. Seizure disorder. 11. [facility] resident. 12. Reformed tobacco abuse. PAST SURGICAL HISTORY 1. Cardiac catheterization, PCI and stent as noted above. 2. Craniotomy. 3. I and D of retroperitoneal abscess in 06/2014. 4. Inferior pubic ramus fracture and nondisplaced fracture of right acetabulum in 10/2013. 5. Extra peritoneal bladder rupture requiring drain placement in 10/2013. 6. Bilateral tubal ligation. 7. Left and right shoulder surgery. MEDICATIONS Home/rehab medications; amantadine 100 mg p.o. b.i.d., Seroquel 200 mg p.o. daily, Lasix 40 mg p.o. at bedtime, simvastatin 10 mg p.o. at bedtime, melatonin 5 mg p.o. at bedtime, albuterol 1 inhalation nebulizer q.4 p.r.n., Percocet 5/325 mg one tablet p.o. every 6 hours p.r.n. for pain, Xanax 0.25 mg p.o. b.i.d. p.r.n. for anxiety, Tylenol 650 mg p.o. every 6 hours p.r.n. for pain, Aranesp injection subcu every Wednesday, ipratropium/albuterol one inhalation every 6 hours, calcium 667 mg p.o. q.8 hours, Imdur ER 60 mg p.o. daily, Plavix 75 mg p.o. daily, Amitiza 24 mcg p.o. daily, esomeprazole 20 mg p.o. daily, MiraLax 1 pack p.o. daily, Tradjenta 5 mg p.o. daily, Lasix 80 mg p.o. daily, Myrbetriq 25 mg p.o. daily, aspirin 81 mg p.o. daily, Flomax 0.4 mg p.o. daily, MAGnesium-Oxide 400 mg p.o. daily, Cymbalta 60 mg p.o. daily, loratadine 10 mg p.o. daily, Norvasc 5 mg p.o. daily, Neurontin 100 mg p.o. t.i.d., Keppra 500 mg p.o. b.i.d., metoprolol tartrate 50 mg p.o. b.i.d., Colace 100 mg p.o. b.i.d., NovoLog 5 units subcu t.i.d., Levemir 70 units subcu b.i.d. ALLERGIES No known drug allergies. SOCIAL HISTORY The patient resides in a fpc. She is a reformed smoker. There are no reports of alcohol or illicit drug use. FAMILY HISTORY Significant for heart disease, lung cancer, diabetes, and hypertension. REVIEW OF SYSTEMS Ten-point review of systems negative except for details noted above in HPI. PHYSICAL EXAMINATION VITAL SIGNS: Temperature 98.9, pulse 79, blood pressure 168/64. CONSTITUTIONAL: This is a 57-year-old white female, in no acute distress. SKIN: Warm and dry. NECK: Supple. No jugular vein distention. No hepatojugular reflux. Normal carotid upstrokes. No carotid bruits auscultated. HEART: S1 and S2. Regular rate and rhythm. No murmurs, rubs, or gallops. Unit #: [id number] #: [id number] Patient: SIMON BERNSTEIN LUNGS: Bilateral breath sounds have diminished in the bases. Respirations are even and nonlabored. No rales, rhonchi, or wheezes. ABDOMEN: Soft, nontender, and nondistended. Positive bowel sounds auscultated x4 quadrants. No ascites noted. EXTREMITIES: Bilateral lower extremities have 1+ pitting edema. DP and PT pulses are 2+. Capillary refill is less than 2 seconds. DIAGNOSTIC STUDIES LABORATORY RESULTS: White blood cell count 7.4, hemoglobin 9, hematocrit 28.1, platelets 127. Sodium 132, potassium 4.4, chloride 94, CO2 of 27, BUN 48, creatinine 2.8, glucose 205. Magnesium 2.3. Troponin 0.07 and 0.05. IMAGING STUDIES: Chest x-ray reveals new diffuse bilateral mixed interstitial and airspace changes in both lungs with stable mild cardiomegaly. Favor edema over pneumonia. No effusion seen. CARDIOVASCULAR STUDIES: EKG reveals sinus rhythm with nonspecific ST-T wave changes. QTc 454 msec. IMPRESSION 1. Acute on chronic diastolic congestive heart failure. 2. Acute on chronic hypoxic respiratory failure. 3. Coronary artery disease with history of percutaneous coronary intervention and stent in the left anterior descending on 10/21/2016. Right coronary artery and ramus not dilated. 4. Ejection fraction 50% to 55% with mild mitral tricuspid regurgitation per 2D echocardiogram on 10/20/2016. 5. Chronic kidney disease. 6. Hypertension. 7. Hyperlipidemia. 8. Diabetes mellitus, type 2. 9. History of cerebral aneurysm and subarachnoid hemorrhage, status post right craniotomy years ago. 10. Seizure disorder. 11. [facility] resident. 12. Reformed tobacco abuse. PLAN 1. The patient presented back to the hospital with complaints of shortness of breath during physical therapy. She was admitted and Cardiology was consulted. 2. We will order diuretics. 3. The patient has been advised to follow fluid restriction and low-sodium diet. 4. Labs will be trended. The patient denies chest pain, but we will check serial cardiac enzymes and EKG. 5. She will be continued on statin, calcium channel liliana, aspirin, Plavix, beta liliana, and nitrates. No GABRIELLE or ARB has been prescribed due to renal function. Dictated by... DOMINIK Palma/sonal TD: 04/19/2017 00:45 Unit #: [id number] #: [id number] Patient: SIMON BERNSTEIN JOB #: [id number] CONSULTATION REPORT Page 1 of 1 X X CONSULTATION REPORT
--- NOTE | ~2017-04-15 | US85 ---
[facility] A Service of [facility] RADIOLOGY TEXT RESULTS PATIENT: SIMON BERNSTEIN LOCATION: [facility] 311-01 : [birth year] UNIT #: [id number] AGE: [address]: Lilliam Lynch MD SEX: F ORDER DR: [id number] [facility] [address] [place], [place] [address] [id number] I MR#: [id number] Acc #: [id number] NAME: SIMON BERNSTEIN : 1960 SEX: F STUDY DATE/TIME: 04/15/2017 13:37 UNIT: CEDOF ROOM: 74983 STUDY DESCRIPTION: US LE Veins Unilat or Ltd Stdy Attending Physician: Katy Willis M.D. Ordering Physician: Anupam Nicole M.D. Primary Care Physician: Edgar Goodrich M.D. MEDICAL IMAGING REPORT This report is preliminary unless electronic signature is present EXAM Left lower extremity venous duplex 04/15/2017 HISTORY Left lower extremity edema and pain for 2 days with shortness of breath for 1 day. Evaluate for deep vein thrombosis. TECHNIQUE Venous ultrasound examination of the left lower extremity was performed using grayscale, spectral Doppler and color flow Doppler imaging. FINDINGS The examination is negative. There is no evidence of left lower extremity deep venous thrombus from the groin to the lower calf. Visualized greater saphenous vein is also patent. IMPRESSION Negative examination. No evidence of left lower extremity deep venous thrombosis. Dictated by... Ángel Levine M.D. THIS IS AN ELECTRONICALLY VERIFIED REPORT Ángel Levine M.D. at 04/16/2017 10:18 AM DESTINI/kishan TD: 04/15/2017 16:56 JOB #: [id number] MEDICAL IMAGING REPORT Page 1 of 1 COPY
--- NOTE | ~2017-04-15 | A ---
[facility] Nutrition Therapy DATE: 04/20/17 Patient: SIMON BERNSTEIN Physician: JENNIFER Address: [facility] Room/Bed: [address] [place] [address], Zip: [place] [address] Admit Date: 04/16/17 Date of : 60 Height: 5 4 Weight: 204 92.8 NUTRITIONAL ASSESSMENT: REASON: 1 point malnutrition risk score re: pressure ulcer Admitting dx: 57 y/o female admitted with SOA PMH: Reviewed Anthropometrics: Reviewed Labs: Reviewed Meds: Reviewed Skin Integrity: stage II pressure ulcer on L coccyx (present on admission) Current diet order: Consistent carb/low K+ Assessment: Chart reviewed, events noted. RD attempted to assess pt on Tuesday 04/17 however pt unavaiable x 2. She was supposed to be transferred back to [facility] yesterday at 7pm per RN (Amos) on 04/19, however she is still here today due to wound care wanting surgical team to evaluate her sacral ulcer and if no surgical interventions are necessary she will tranfer back to [facility] today. Per surgery notes in chart she will require no surgical intervention as the wound is excoriated but not open, they recommended [facility] to manage the wound as they are doing. She should transfer back today. See recs below. Recommendations: Diet per MD, encourage adequate protein intake. Please consult RD with any further nutritional needs prior to discharge. Respectfully, Louisa Reyes, CANDICE, JOHNNY [employer] [facility] cc: client file
--- NOTE | ~2017-04-15 | DS ---
Unit #: [id number] #: [id number] Patient: SIMON BERNSTEIN [id number] [address] [place], [place] [address] [id number] I MR#: [id number] NAME: SIMON BERNSTEIN ROOM: 311 Age: 57 Sex: F Admission Date: 04/16/2017 : 1960 Discharge Date: 04/19/2017 Attending Physician: Lilliam Lynch M.D. Primary Care Physician: Edgar Goodrich M.D. DISCHARGE SUMMARY DATE OF DISCHARGE April 19, 2017, pending surgical evaluation. HISTORY OF PRESENT ILLNESS/HOSPITAL COURSE The patient is a very pleasant 57-year-old female with multiple medical problems including chronic respiratory failure and recurrent hospital admissions secondary to dyspnea multifactorial in origin and diastolic heart failure, who presented with some worse symptoms. She was transferred from the skilled nursing secondary to the same. While here, he had placed consultation to nephrology and cardiology services secondary to fluid overload issues. In regards to her history of chronic kidney disease, as well as diastolic dysfunction, she was appropriately diuresed while here and placed on appropriate fluid restriction. Today, at the time of discharge, it is recommended that she placed on a total of 1800 mL fluid restriction as per recommendation by Dr. Santacruz. She did undergo a 2D echocardiogram back in September 2016 which did show diastolic dysfunction with a normal ejection fraction. The patient was seen in consultation by renal services. They did recommend that her Lasix be changed to 80 mg p.o. b.i.d. and that she follow up in two to four weeks with Dr. Michaud. She should have a BMP and CBC in one week at rehab. She should also have outpatient Aranesp set up at 60 mcg subcutaneous every other week. Cardiology services has also stated that patient is currently stable for discharge back to skilled nursing. Her O2 saturations have been noted to be in the mid to upper 80s; and therefore, she will be transitioned to O2 via nasal cannula at 2 liters /. At this point in time, the patient is stable for transfer. She was seen in evaluation secondary to a sacral ulcer which was seen at the time of admission. Wound Care recommended evaluation from [facility]. We are currently awaiting their evaluation. If no surgical intervention is planned in regards to the aforementioned sacral decubitus ulcer which again was noted on admission, patient will be transitioned back to [facility] skilled nursing for longstanding care. CURRENT/FINAL DISCHARGE DIAGNOSES 1. Dyspnea, multifactorial. 2. Acute on chronic diastolic heart failure with ejection fraction of 50% to 55%. 3. Prior history of coronary artery disease with stent placement to LAD in 2017 and RCA occlusion noted to be 90% to 95% in the past. Unit #: [id number] #: [id number] Patient: SIMON BERNSTEIN 4. Hypertension. 5. Hyperlipidemia. 6. Type 2 diabetes. 7. Chronic kidney disease. 8. Anemia with baseline hemoglobin 8. 9. Chronic kidney disease with baseline creatinine 3 to 3.5. 10. Prior history of cerebral aneurysm with subarachnoid hemorrhage, status post craniotomy. 11. Dementia likely secondary to above. 12. Morbid obesity. 13. Chronic immobility syndrome. 14. Anemia of chronic kidney disease. 15. Sacral decubitus ulcer likely stage I-II seen at time of admission. FINAL DISCHARGE MEDICATIONS 1. Albuterol nebulized solution q.4 p.r.n. 2. Combivent/DuoNeb aerosol solution q.6 scheduled. 3. Flomax 0.4 mg p.o. daily. 4. Tylenol 650 mg p.o. q.6 p.r.n. 5. Magnesium oxide 400 mg p.o. daily. 6. Neurontin 100 mg p.o. q.8. 7. Keppra 500 mg p.o. b.i.d. 8. Cymbalta 60 mg p.o. daily. 9. Claritin 10 mg p.o. daily. 10. Seroquel 200 mg p.o. at bedtime. 11. Amantadine 100 mg p.o. b.i.d. 12. Xanax 0.25 mg p.o. b.i.d. p.r.n. 13. Norvasc 5 mg p.o. daily. 14. Lopressor 50 mg p.o. b.i.d. 15. Colace 100 mg p.o. b.i.d. 16. MiraLAX 17 g mixed with 8 ounces of water drink daily. 17. Lasix 80 mg p.o. b.i.d. 18. Myrbetriq 25 mg p.o. daily. 19. Aranesp 60 mcg subcutaneous q.2 weeks. 20. Zocor 10 mg p.o. at bedtime. 21. Levemir 70 units subcutaneous b.i.d. 22. NovoLog 5 units t.i.d. with meals. 23. NovoLog low-dose sliding scale insulin with Accu-Cheks q.a.c. and at bedtime. 24. Pepcid 20 mg p.o. q.24. 25. Melatonin 5 mg p.o. at bedtime. 26. Aspirin 81 mg daily. 27. Percocet 5/325 at 1 tablet p.o. q.6 p.r.n. 28. Plavix 75 mg p.o. daily. 29. Aldactone 25 mg p.o. daily. 30. Amitiza 24 mcg p.o. daily. 31. Nexium 20 mg p.o. daily. 32. PhosLo 1334 mg p.o. t.i.d. with meals. 33. Imdur 60 mg p.o. daily. DISCHARGE CONDITION Stable. DISCHARGE DISPOSITION group home. LONG-TERM PROGNOSIS Poor. Unit #: [id number] #: [id number] Patient: SIMON BERNSTEIN CHANCE OF READMISSION Significantly elevated. Dictated by... Linnea Noland/felix TD: 04/19/2017 15:41 JOB #: [id number] DISCHARGE SUMMARY Page 1 of 1 X Lilliam Lynch MD X DISCHARGE SUMMARY
--- NOTE | ~2017-04-15 | CR72 ---
[facility] A Service of [facility] RADIOLOGY TEXT RESULTS PATIENT: SIMON BERNSTEIN LOCATION: [facility] : [birth year] UNIT #: [id number] AGE: [address]: Anupam Nicole MD SEX: F ORDER DR: [id number] [facility] [address] [place], [place] [address] [id number] MR#: [id number] Acc #: [id number] NAME: SIMON BERNSTEIN : 1960 SEX: F STUDY DATE/TIME: 04/15/2017 11:59 UNIT: [facility] ROOM: STUDY DESCRIPTION: CR Chest Single View Portable Attending Physician: Anupam Nicole M.D. Ordering Physician: Anupam Nicole M.D. Primary Care Physician: Edgar Goodrich M.D. MEDICAL IMAGING REPORT This report is preliminary unless electronic signature is present EXAM Chest portable 04/15/2017 1159 hours HISTORY 57-year-old with shortness of air today. History of hypertension, kidney disease, diabetes and Parkinson's disease. COMPARISON 03/23/2017. FINDINGS Portable upright chest demonstrates stable mild cardiomegaly and tortuous aorta. There is pulmonary venous distension and new diffuse mixed interstitial and airspace change in both lungs not seen on 03/23/2017. Findings are concerning for edema, less likely pneumonia. No effusions are seen. IMPRESSION New diffuse bilateral mixed interstitial and airspace change in both lungs with stable mild cardiomegaly. Findings favor the presence of edema over pneumonia. No definite effusion seen. STAT * RESULT Dictated by... Carrie Webster M.D. THIS IS AN ELECTRONICALLY VERIFIED REPORT Carrie Webster M.D. at 04/15/2017 2:31 PM AIDEN/glendy [facility] A Service of [facility] RADIOLOGY TEXT RESULTS PATIENT: SIMON BERNSTEIN LOCATION: [facility] #: [id number] : 60 UNIT #: [id number] AGE: [address]: Anupam Nicole MD SEX: F ORDER DR: TD: 04/15/2017 12:48 JOB #: [id number] MEDICAL IMAGING REPORT Page 1 of 1 COPY
--- NOTE | ~2017-04-15 | EKG ---
PATIENT: SIMON BERNSTEIN UNIT #: [id number] Ventricular Rate: 57 BPM Atrial Rate: 57 BPM P-R Interval: 128 ms QRS Duration: 86 ms Q-T Interval: 422 ms QTC Calculation(Bezet): 410 ms P [place]: 33 degrees Calculated R [place]: 34 degrees Calculated T [place]: -32 degrees Diagnosis Line: Sinus bradycardia Diagnosis Line: Poor R wave progression questionable lead position Diagnosis Line: or body habitus Diagnosis Line: T wave abnormality, consider inferior ischemia Diagnosis Line: Cannot rule out , old Inferior infarct Diagnosis Line: Abnormal ECG Diagnosis Line: When compared with ECG of 15-APR-2017 11:45, Diagnosis Line: No significant change was found Diagnosis Line: Confirmed by ETIENNE REIS MD ([id number]) on 04/21/2017 Diagnosis Line: 7:31:41 AM INTERPRETING MD: SMILEY SCHWARTZ
--- NOTE | ~2017-04-15 | EKG ---
PATIENT: SIMON BERNSTEIN UNIT #: [id number] Ventricular Rate: 66 BPM Atrial Rate: 66 BPM P-R Interval: 124 ms QRS Duration: 90 ms Q-T Interval: 434 ms QTC Calculation(Bezet): 454 ms P [place]: 12 degrees Calculated R [place]: 21 degrees Calculated T [place]: -17 degrees Diagnosis Line: Normal sinus rhythm Diagnosis Line: Cannot rule out Inferior infarct (cited on or Diagnosis Line: before 03-MAR-2017) Diagnosis Line: Abnormal ECG Diagnosis Line: When compared with ECG of 20-MAR-2017 16:18, Diagnosis Line: No significant change was found Diagnosis Line: Confirmed by JAZLYN GAITAN MD ([id number]) on Diagnosis Line: 04/15/2017 1:34:44 PM INTERPRETING MD: KANDY SCHWARTZ
--- NOTE | ~2017-04-15 | CO ---
Unit #: [id number] #: [id number] Patient: YOKASTA BERNSTEIN [id number] [address] [address] [id number] I MR#: [id number] NAME: YOKASTA BERNSTEIN ROOM: 311 Age: 57 Sex: F Admission Date: 04/16/2017 : 1960 Attending Physician: Lilliam Lynch M.D. Primary Care Physician: Edgar Goodrich M.D. CONSULTATION REPORT REASON FOR CONSULTATION Renal insufficiency. Thank you very much for asking me to see this patient in consultation again. HISTORY OF PRESENT ILLNESS Ms. Yokasta Bernstein is a 57-year-old female with history of chronic kidney disease. She was initially seen in our office and followed by Dr. Michaud with baseline creatinine prior to this year 1.8, which it was in October when she went to the hospital, she underwent a heart catheterization. At that time, she came back in the hospital in February where she had congestive heart failure and felt to be diastolic dysfunction, hypertension, and has been in several times, her creatinine has increased and it has been running around 3+/- since February. She presented here with increasing shortness of breath again. We were asked to see the patient secondary to increased creatinine. The patient was noted yesterday to have creatinine 2.8 and up to 3.1 today. She states her breathing is better. She is not having any chest pain or chest heaviness. She states she is taking her medicines. She lives in a long-term rehab at this time. PAST MEDICAL HISTORY History of chronic kidney disease, again questionable baseline 1.8 prior to October and up to 3 now; COPD; history of diabetes mellitus; history of atherosclerotic coronary artery disease, status post [place] and stents in 09/2016 with a normal EF; history of craniotomy secondary to subdural hemorrhage; history of seizures; history of obesity; history of anemia; history of Proteus UTI in earlier this month treated with Zyvox; history of thrombocytopenia. ALLERGIES No known drug allergies. SOCIAL HISTORY She still smokes. Lives in a long-term rehab. No alcohol. FAMILY HISTORY Positive for diabetes, hypertension, heart disease. Negative for kidney disease. REVIEW OF SYSTEMS She denies any headaches, dizziness, visual problems, sinus problems, cough, or hemoptysis. No neck pain or neck stiffness. She denies any chest pain or chest heaviness. She does have some increased shortness of Unit #: [id number] #: [id number] Patient: YOKASTA BERNSTEIN. She denies any severe abdominal pain, any urinary symptoms. She denies any recent skin rashes. MEDICATIONS Reviewed. She is on Seroquel; insulin; Neurontin, Zocor, Lasix normally at home it is 80 and 40, 80 mg in the morning, 40 mg in the evening; Protonix; Lopressor; Xanax; Norvasc; magnesium; Claritin; Cymbalta; Flomax; aspirin; Myrbetriq; she is on Amitiza; Plavix; Imdur. PHYSICAL EXAMINATION GENERAL: She is alert and oriented. VITAL SIGNS: T-max 99.7, pulse 58 to 75, blood pressure 130 to 191 over 60s to 90s. HEENT: She is normocephalic and atraumatic. Pupils are equal, round, and reactive to light. Extraocular muscles are intact. Hearing appears to be normal. Mouth is clear. No erythema. No exudates. NECK: Supple. No adenopathy. CARDIAC: She has regular rhythm without a rub. No S3 or S4. LUNGS: Have some decreased breath sounds at the bases. Upper. lungs are clear. ABDOMEN: Bowel sounds positive. Nontender. Soft. EXTREMITIES: She has some trace lower extremity swelling. SKIN: No rashes. : Deferred. NEURO: She has weakness on her left side. DIAGNOSTIC STUDIES LABORATORY RESULTS: Her sodium is 132, potassium 4.4, chloride 94, bicarb is 27, BUN and creatinine of 48 and 2.8 with glucose of 205, calcium 9.2. BNP is 950. Upon admission today, it is 50 and 3.1 BUN and creatinine. Hemoglobin is 8.5, white count 5500, platelet count 26,000. ASSESSMENT AND PLAN 1. Chronic kidney disease, again the patient's creatinine has not really improved much of 2.8 to 3.2 range since her late September and early October admission. There was some question by our group to try to get renal artery scan done to look at her renal vasculature with her CO2 angiography, although on her last hospitalization this cannot be done here and the plan was potentially try to do as an outpatient. We may consider doing this still since she continues to have intermittent severe blood pressure and pulmonary edema. For now, I am going to change her IV Lasix to 80 b.i.d. Check labs in the morning. Check UA culture and sensitivity and we will continue to follow. 2. Hypertension. Again, we would hold angiotensin receptor blockers and GABRIELLE inhibitors for now. Other agents are okay from the Renal standpoint. 3. Diastolic dysfunction with congestive heart failure, history of heart disease. 4. Diabetes mellitus. 5. History of chronic obstructive pulmonary disease. Dictated by... Berna Belle M.D. VALERIA/sonal TD: 04/16/2017 23:06 JOB #: [id number] Unit #: [id number] #: [id number] Patient: YOKASTA BERNSTEIN CONSULTATION REPORT Page 1 of 1 X Nicolasa Belle MD X CONSULTATION REPORT
--- NOTE | ~2017-04-15 | HP ---
Unit #: [id number] #: [id number] Patient: SIMON BERNSTEIN [id number] [address] [address] [id number] I MR#: [id number] NAME: SIMON BERNSTEIN ROOM: 311 Age: 57 Sex: F Admission Date: 04/15/2017 : 1960 Attending Physician: Leoncio Willis M.D. Primary Care Physician: Edgar Goodrich M.D. HISTORY AND PHYSICAL CHIEF COMPLAINT Shortness of breath. HISTORY OF PRESENT ILLNESS The patient is a 57-year-old female with multiple medical problems including chronic respiratory failure and coronary artery disease with diastolic congestive heart failure, chronic kidney disease stage 3, diabetes, was recently discharged from the hospital on March 31, presented to the emergency room from [facility] with shortness of breath. The patient stated the patient has been having gradually worsening shortness of breath since last night and has been worsening this morning during the physical therapy. The patient also complains of swelling of the legs. The patient also complains of a low grade fever up to 100 and denies any chest pain, palpitations and chills. The patient was found to have worsening pulmonary edema and has been admitted for the above reasons. PAST MEDICAL HISTORY 1. History of chronic gastritis with bladder tumor. 2. Hypertension. 3. Chronic kidney disease stage 3. 4. History of MRSA. 5. Subarachnoid hemorrhage. 6. Coronary artery disease. 7. Diabetes. 8. Chronic constipation. 9. Depression. 10. Back pain. 11. Morbid obesity. PAST SURGICAL HISTORY 1. Bilateral tubal ligation. 2. Left retroperitoneal abscess requiring I and D. 3. Inferior pubic ramus fracture and nondisplaced fracture of the right acetabulum. 4. Bilateral shoulder surgery. SOCIAL HISTORY The patient lives at [facility]. Smokes half a pack per day. Denies alcohol. Code status is Full Code. FAMILY HISTORY Positive for coronary artery disease, lung cancer, diabetes, hypertension. Unit #: [id number] #: [id number] Patient: SIMON BERNSTEIN ALLERGIES No known drug allergies. HOME MEDICATIONS Patient is on: 1. Norvasc. 2. Neurontin. 3. Keppra. 4. Lopressor. 5. Colace. 6. Aspirin. 7. Flomax. 8. Magnesium. 9. Cymbalta. 10. Loratadine. 11. Esomeprazole. 12. MiraLAX. 13. Tradjenta. 14. Lasix. 15. Myrbetriq. 16. Duo-Nebs. 17. Calcium. 18. Imdur. 19. Plavix. 20. Amitiza. 21. Amantadine. 22. Seroquel. 23. Zocor. 24. Melatonin. 25. Proventil. 26. Percocet. 27. Alprazolam. 28. Tylenol. 29. Aranesp. 30. Levemir. 31. NovoLog. REVIEW OF SYMPTOMS Positive for shortness of breath, positive for leg swelling. Denies headache, denies chest pain, denies nausea and vomiting, denies cough. Other systems reviewed and none. PHYSICAL EXAMINATION GENERAL APPEARANCE: On examination the patient is lying on her bed, not in acute distress. VITAL SIGNS: Temperature is 98.9, pulse 79, respiratory rate 13, blood pressure 191/92, sat'ing 96% on 2 L per nasal cannula. HEENT: Head atraumatic and normocephalic. Pupils equal, round, reacting to light and accommodation. Extraocular movements are intact. NECK: Supple. LUNGS: Decreased air entry at the bases. Positive for rales. HEART: Regular rate and rhythm. Positive for murmur. ABDOMEN: Soft, positive bowel sounds. EXTREMITIES: Positive for trace edema. NEUROLOGIC: Patient is alert, awake, oriented. DIAGNOSTIC STUDIES LABORATORY DATA: WBC 7.4, hemoglobin 9, hematocrit 28.1, platelets 18, Unit #: [id number] #: [id number] Patient: SIMON BERNSTEIN sodium 132, potassium 4.4, chloride 94, bicarb 27, glucose 205, BUN 48, creatinine 2.8, AST 24, ALT 13, alkaline phosphatase 144, albumin 3.4, lactic acid 0.9, BNP 950, INR is 1. IMAGING: Chest x-ray shows new diffuse bilateral mixed interstitial and airspace change in both lungs with stable mild cardiomegaly. Findings favor the presence of edema over pneumonia. No definite effusion seen. Troponin less than 0.05. ASSESSMENT AND PLAN 1. Hqhms-tn-oulrpni diastolic congestive heart failure. 2. Chronic kidney disease. 3. Diabetes mellitus. Plan to admit the patient to observation telemetry. Continue with IV diuretics. Cardiology consult for the diuresis and renal consult for chronic kidney disease (1) and continue with IV Lasix 80 mg daily and repeat the labs again in the morning. Further recommendations will follow. Dictated by Linnea Guzman TD: 04/16/2017 05:00 JOB #: [id number] HISTORY AND PHYSICAL Page 1 of 1 X LEONCIO WILLIS MD X HISTORY AND PHYSICAL
[2017-04-15 12:11] LABS: BASOPHIL% 0.3 % (0-2.5); EOSINOPHIL# 0.2 X10e3 (0-0.7); EOSINOPHIL% 2.7 % (0.0-7.0); HEMATOCRIT 28.1 % (35.0-45.0); LYMPHOCYTE# 0.7 X10e3 (1.0-3.5); LYMPHOCYTE% 9.8 % (17.0-45.0); MEAN CELL VOLUME 84.6 FL (83-96); MEAN CORPUSCULAR HEMOGLOBIN 27.1 PG (28-34); MEAN PLATELET VOLUME 7.7 FL (6.5-11.5); MONOCYTE# 0.8 X10e3 (0-1.0); MONOCYTE% 10.2 % (3.0-12.0); NEUTROPHIL# 5.7 X10e3 (1.5-7.1); PLATELET COUNT 127 X10e3 (140-420); RED BLOOD COUNT 3.32 X10e (3.90-5.30); WHITE BLOOD COUNT 7.4 X10e3 (4.0-10.5)
[2017-04-15 12:15] LABS: DIFF IND NO
[2017-04-15 12:39] LABS: ALBUMIN SERUM 3.4 g/dL (3.5-5.0); BILIRUBIN, DIRECT 0.2 mg/dL (0.0-0.2); BILIRUBIN,INDIRECT 0.5 mg/dL (0.0-0.9); BILIRUBIN,TOTAL 0.7 mg/dL (0.2-2.0); BUN/CREATININE RATIO 17.14; CALCIUM SERUM 9.2 mg/dL (8.4-10.2); CREATININE SERUM 2.8 mg/dL (0.6-1.4); POTASSIUM 4.4 mmol/L (3.5-5.1); PROTEIN TOTAL SERUM 8.2 g/dL (6.0-8.3)
[2017-04-15 12:48] LABS: PARTIAL THROMBOPLASTIN TIME 26.1 SECONDS (23.5-31.3)
[2017-04-15] MEDS ORDERED: IPRAT-ALBUT 0.5-3 ML NEB (14:25)
[2017-04-15] MEDS ORDERED: CALCIUM ACETAT667 MG PO (14:25)
[2017-04-15] MEDS ORDERED: MIRALAX17 GM PO (14:26)
[2017-04-15] MEDS ORDERED: ESOMEPRAZOLE MA20 MG PO (14:26)
[2017-04-15] MEDS ORDERED: AMITIZA24 MCG PO (14:26)
[2017-04-15] MEDS ORDERED: CLOPIDOGREL75 MG PO (14:26)
[2017-04-15] MEDS ORDERED: IMDUR PO (14:26)
[2017-04-15] MEDS ORDERED: ASPIRIN81 M2 PO (14:27)
[2017-04-15] MEDS ORDERED: MAGNESIUM400 MG PO (14:27)
[2017-04-15] MEDS ORDERED: FLOMAX0.4 M1 PO (14:27)
[2017-04-15] MEDS ORDERED: TRADJENTA5 MG PO (14:27)
[2017-04-15] MEDS ORDERED: LASIX80 MG PO (14:27)
[2017-04-15] MEDS ORDERED: DULOXETINE HCL60 MG PO (14:27)
[2017-04-15] MEDS ORDERED: MYRBETRIQ25 MG PO (14:27)
[2017-04-15] MEDS ORDERED: NEURONTIN100 MG PO (14:28)
[2017-04-15] MEDS ORDERED: KEPPRA500 M2 PO (14:28)
[2017-04-15] MEDS ORDERED: LOPRESSOR PO (14:28)
[2017-04-15] MEDS ORDERED: ALLERCLEAR10 MG PO (14:28)
[2017-04-15] MEDS ORDERED: NORVASC2.5 MG PO (14:28)
[2017-04-15] MEDS ORDERED: MELATONIN5 M4 PO (14:29)
[2017-04-15] MEDS ORDERED: AMANTADINE100 M1 PO (14:29)
[2017-04-15] MEDS ORDERED: COLACE CLEAR50 MG PO (14:29)
[2017-04-15] MEDS ORDERED: SEROQUEL PO (14:29)
[2017-04-15] MEDS ORDERED: LASIX20 MG PO (14:29)
[2017-04-15] MEDS ORDERED: ZOCOR PO (14:29)
[2017-04-15] MEDS ORDERED: PERCOCET5/325 PO (14:30)
[2017-04-15] MEDS ORDERED: ALPRAZOLAM0.25 MG PO (14:30)
[2017-04-15] MEDS ORDERED: ALBUTEROL 0.5ML NEB (14:30)
[2017-04-15] MEDS ORDERED: ARANESP (14:31)
[2017-04-15] MEDS ORDERED: TYL325 PO (14:31)
[2017-04-15] MEDS ORDERED: NOVOLOG100 U/ML SUBQ (14:31)
[2017-04-15] MEDS ORDERED: LEVEMIR100 UNITS/ SUBQ (14:32)
[2017-04-15 14:37] LABS: POC - CKMB 2.5 ng/mL (0.0-7.9); POC - TROPONIN <0.05 ng/mL (<=0.05)
[2017-04-16 05:18] LABS: HEMATOCRIT 25.9 % (35.0-45.0); HEMOGLOBIN 8.5 gm/dL (12.0-16.0); MEAN CELL VOLUME 84.2 FL (83-96); MEAN CORPUSCULAR HEMOGLOBIN 27.7 PG (28-34); MEAN CORPUSCULAR HGB CONC 32.9 g/dL (30-36); MEAN PLATELET VOLUME 7.7 FL (6.5-11.5); RED BLOOD COUNT 3.07 X10e (3.90-5.30); RED CELL DISTRIBUTION WIDTH 18.2 % (11.0-15.5); WHITE BLOOD COUNT 5.5 X10e3 (4.0-10.5)
[2017-04-16 06:09] LABS: BUN/CREATININE RATIO 16.12; CALCIUM SERUM 9.3 mg/dL (8.4-10.2); CREATININE SERUM 3.1 mg/dL (0.6-1.4); GLOM FILT RATE Estimated 15.9 mL/min (>60); POTASSIUM 4.1 mmol/L (3.5-5.1)
[2017-04-16 11:10] LABS: URINE APPEARANCE TURBID; URINE BILIRUBIN NEG (NEG); URINE BLOOD 3+ (NEG); URINE COLOR YELLOW; URINE GLUCOSE NEG (NEG); URINE KETONE NEG (NEG); URINE LEUKOCYTE ESTERASE 3+ (NEG); URINE NITRATE NEG (NEG); URINE PH 5.5 (5-8); URINE PROTEIN 2+ (NEG); URINE SPECIFIC GRAVITY 1.016 (1.003-1.035); URINE UROBILINOGEN 0.2 MG/DL (NEG)
[2017-04-16 11:12] LABS: CULTURE INDICATED? YES; URBCS1 AUWI 100-200 /[HPF] (0-2); URINE BACTERIA AUWI NEG (NEGATIVE); URINE SQUAMOUS EPITHELIAL CELL FEW /[HPF]; UWBCS1 AUWI INNUM (0-5)
[2017-04-16 11:30] LABS: URINE SOURCE CLEAN CATCH
[2017-04-17 05:40] LABS: BASOPHIL% 0.5 % (0-2.5); EOSINOPHIL# 0.3 X10e3 (0-0.7); EOSINOPHIL% 5.4 % (0.0-7.0); HEMATOCRIT 26.4 % (35.0-45.0); HEMOGLOBIN 8.6 gm/dL (12.0-16.0); LYMPHOCYTE# 1.3 X10e3 (1.0-3.5); LYMPHOCYTE% 21.3 % (17.0-45.0); MEAN CELL VOLUME 83.8 FL (83-96); MEAN CORPUSCULAR HEMOGLOBIN 27.4 PG (28-34); MEAN CORPUSCULAR HGB CONC 32.7 g/dL (30-36); MEAN PLATELET VOLUME 7.7 FL (6.5-11.5); MONOCYTE# 0.9 X10e3 (0-1.0); MONOCYTE% 14.7 % (3.0-12.0); NEUTROPHIL# 3.7 X10e3 (1.5-7.1); NEUTROPHIL% 58.1 % (40-75); PLATELET COUNT 131 X10e3 (140-420); RED BLOOD COUNT 3.14 X10e (3.90-5.30); RED CELL DISTRIBUTION WIDTH 17.9 % (11.0-15.5); WHITE BLOOD COUNT 6.3 X10e3 (4.0-10.5)
[2017-04-17 05:55] LABS: DIFF IND NO
[2017-04-17 06:18] LABS: BUN/CREATININE RATIO 17.5; CALCIUM SERUM 9.5 mg/dL (8.4-10.2); CREATININE SERUM 3.2 mg/dL (0.6-1.4); GLOM FILT RATE Estimated 15.3 mL/min (>60); MAGNESIUM 2.3 mg/dL (1.6-3.0); PHOSPHOROUS 6.3 mg/dL (2.5-4.6); POTASSIUM 3.9 mmol/L (3.5-5.1)
[2017-04-18 07:28] LABS: BUN/CREATININE RATIO 19.33; CALCIUM SERUM 9.7 mg/dL (8.4-10.2); GLOM FILT RATE Estimated 16.6 mL/min (>60); MAGNESIUM 2.5 mg/dL (1.6-3.0); POTASSIUM 3.7 mmol/L (3.5-5.1)
[2017-04-19 05:23] LABS: HEMATOCRIT 25.5 % (35.0-45.0); HEMOGLOBIN 8.2 gm/dL (12.0-16.0); MEAN CELL VOLUME 83.6 FL (83-96); MEAN CORPUSCULAR HEMOGLOBIN 26.8 PG (28-34); MEAN CORPUSCULAR HGB CONC 32.1 g/dL (30-36); MEAN PLATELET VOLUME 7.8 FL (6.5-11.5); RED BLOOD COUNT 3.05 X10e (3.90-5.30); RED CELL DISTRIBUTION WIDTH 17.6 % (11.0-15.5); WHITE BLOOD COUNT 6.1 X10e3 (4.0-10.5)
[2017-04-19 06:24] LABS: BUN/CREATININE RATIO 19.68; CALCIUM SERUM 9.8 mg/dL (8.4-10.2); CREATININE SERUM 3.2 mg/dL (0.6-1.4); GLOM FILT RATE Estimated 15.3 mL/min (>60); MAGNESIUM 2.4 mg/dL (1.6-3.0); POTASSIUM 3.7 mmol/L (3.5-5.1)
[2017-04-20 06:13] LABS: BUN/CREATININE RATIO 20.64; CALCIUM SERUM 9.3 mg/dL (8.4-10.2); CREATININE SERUM 3.1 mg/dL (0.6-1.4); GLOM FILT RATE Estimated 15.9 mL/min (>60); POTASSIUM 3.9 mmol/L (3.5-5.1)
[2017-05-19] MEDS ORDERED: SIMVASTATIN10 MG PO (11:06)
[2017-05-19] MEDS ORDERED: FUROSEMIDE40 MG PO (11:07)
[2017-05-31] MEDS ORDERED: LEVEMIR FL100 UNIT/1 SUBQ (11:00)
[2017-05-31] MEDS ORDERED: MILK OF MAGNESIA PO (11:01)
[2017-05-31] MEDS ORDERED: ALBUTEROL 0.5ML NEB (11:01)
[2017-05-31] MEDS ORDERED: PERCOCET10 PO (11:01)
[2017-05-31] MEDS ORDERED: IPRAT-ALBUT 0.5-3 ML NEB (11:01)
[2017-05-31] MEDS ORDERED: ZOCOR PO (11:02)
[2017-05-31] MEDS ORDERED: LEVAQUIN PO (11:02)
[2017-05-31] MEDS ORDERED: DESYREL50 MG PO (11:02)
[2017-05-31] MEDS ORDERED: NOVOLOG100 U/ML SUBQ (11:02)
[2017-05-31] MEDS ORDERED: SEROQUEL PO (11:02)
[2017-05-31] MEDS ORDERED: FLOMAX0.4 M1 PO (11:02)
[2017-05-31] MEDS ORDERED: ACETAMINOPHEN650 M3 PO (11:03)
[2017-05-31] MEDS ORDERED: ALPRAZOLAM0.25 MG PO (11:03)
[2017-05-31] MEDS ORDERED: FLAGYL PO (11:03)
[2017-05-31] MEDS ORDERED: FUROSEMIDE40 MG PO (11:04)
[2017-05-31] MEDS ORDERED: DOC-Q-LACE100 MG PO (11:04)
[2017-05-31] MEDS ORDERED: LEVETIRACETAM500 M1 PO (11:04)
[2017-05-31] MEDS ORDERED: LOPRESSOR PO (11:04)
[2017-05-31] MEDS ORDERED: ALLERCLEAR10 MG PO (11:05)
[2017-05-31] MEDS ORDERED: NORVASC PO (11:05)
[2017-05-31] MEDS ORDERED: ALDACTONE PO (11:05)
[2017-05-31] MEDS ORDERED: IMDUR PO (11:05)
[2017-05-31] MEDS ORDERED: DULOXETINE HCL60 MG PO (11:05)
[2017-05-31] MEDS ORDERED: ARANESP SUBQ (11:06)
[2017-05-31] MEDS ORDERED: NEURONTIN100 MG PO (11:06)
[2017-05-31] MEDS ORDERED: DITROPAN XL PO (11:07)
[2017-05-31] MEDS ORDERED: TRADJENTA5 MG PO (11:07)
[2017-05-31] MEDS ORDERED: LINZESS145 MCG PO (11:07)
[2017-05-31] MEDS ORDERED: MAGNESIUM400 MG PO (11:07)
[2017-05-31] MEDS ORDERED: AMANTADINE100 M1 PO (11:07)
[2017-05-31] MEDS ORDERED: MIRALAX17 GM PO (11:07)
[2017-05-31] MEDS ORDERED: CALCIUM ACETAT667 MG PO (11:08)
[2017-05-31] MEDS ORDERED: ESOMEPRAZOLE MA20 MG PO (11:08)
[2017-05-31] MEDS ORDERED: CLOPIDOGREL75 MG PO (11:08)
[2017-05-31] MEDS ORDERED: ACID CONTROL150 M1 PO (11:08)
[2017-05-31] MEDS ORDERED: ST JOSEPH ASPIR81 MG PO (11:08)
== END 2017-04-20 13:05 | DRG 291 ==
LOC: CED 11:10 → CEDOF 14:45 → CED 15:27 → CEDOF 17:10 → C3A PCU 17:10 → CEDOF 04-16 16:15 → CED 04-16 16:15 → C3A PCU 04-16 16:15
PROVIDERS: Emergency Medicine; Family Medicine; Internal Medicine Cardiovascular Disease; Internal Medicine Nephrology
DX: I13.0 Hypertensive heart and chronic kidney disease with heart failure and stage 1 through stage 4 chronic kidney disease, or unspecified chronic kidney disease (principal); I50.33 Acute on chronic diastolic (congestive) heart failure; J96.21 Acute and chronic respiratory failure with hypoxia; N18.4 Chronic kidney disease, stage 4 (severe); E11.22 Type 2 diabetes mellitus with diabetic chronic kidney disease; E66.01 Morbid (severe) obesity due to excess calories; I08.1 Rheumatic disorders of both mitral and tricuspid valves; Z86.14 Personal history of Methicillin resistant Staphylococcus aureus infection; F32.9 Major depressive disorder, single episode, unspecified; K59.09 Other constipation; Z98.51 Tubal ligation status; F17.210 Nicotine dependence, cigarettes, uncomplicated; Z79.4 Long term (current) use of insulin; I25.10 Atherosclerotic heart disease of native coronary artery without angina pectoris; E78.5 Hyperlipidemia, unspecified; G40.909 Epilepsy, unspecified, not intractable, without status epilepticus; J44.9 Chronic obstructive pulmonary disease, unspecified; Z68.37 Body mass index [BMI] 37.0-37.9, adult; D63.1 Anemia in chronic kidney disease
CPT/HCPCS: 36415; 71010; 80048; 80076; 81003; 82553; 82947; 83605; 83735; 83880; 84100; 84484; 85025; 85027; 85379; 85610; 85730; 87040; 87086; 93005; 93971; 94640; 94760; 97162; 97166; 97530; 99285; G8978-GP; G8979-GP; G8987-GO; G8988-GO; G8989-GO; J1815; J1940; J2916

== ENCOUNTER 2017-04-26 11:29 | Emergency (ER) | payer MEDICARE, OTHER ==
[~2017-04-26] VITALS: Ht 162.6 cm; Wt 92.8 kg
[~2017-04-26 11:29] MED LIST changes: +ALBUTEROL 0.5ML NEB; +ALLERCLEAR10 MG PO; +ARANESP; +CALCIUM ACETAT667 MG PO; +COLACE CLEAR50 MG PO; +IMDUR PO; +IPRAT-ALBUT 0.5-3 ML NEB; +LASIX20 MG PO; +LASIX80 MG PO; +MAGNESIUM400 MG PO; +MELATONIN5 M4 PO; +NORVASC2.5 MG PO; +TYL325 PO; +ZOCOR PO
[2017-04-26 12:28] LABS: BASOPHIL% 0.3 % (0-2.5); EOSINOPHIL# 0.2 X10e3 (0-0.7); EOSINOPHIL% 2.6 % (0.0-7.0); HEMATOCRIT 29.7 % (35.0-45.0); HEMOGLOBIN 9.6 gm/dL (12.0-16.0); LYMPHOCYTE# 0.9 X10e3 (1.0-3.5); LYMPHOCYTE% 9.3 % (17.0-45.0); MEAN CELL VOLUME 83.8 FL (83-96); MEAN CORPUSCULAR HEMOGLOBIN 27.2 PG (28-34); MEAN CORPUSCULAR HGB CONC 32.5 g/dL (30-36); MEAN PLATELET VOLUME 7.4 FL (6.5-11.5); MONOCYTE# 0.8 X10e3 (0-1.0); MONOCYTE% 8.8 % (3.0-12.0); NEUTROPHIL# 7.5 X10e3 (1.5-7.1); PLATELET COUNT 145 X10e3 (140-420); RED BLOOD COUNT 3.54 X10e (3.90-5.30); RED CELL DISTRIBUTION WIDTH 18.2 % (11.0-15.5); WHITE BLOOD COUNT 9.5 X10e3 (4.0-10.5)
[2017-04-26 12:32] LABS: DIFF IND NO
[2017-04-26 12:42] LABS: PARTIAL THROMBOPLASTIN TIME 27.3 SECONDS (23.5-31.3); PROTHROMBIN TIME (PATIENT) 11.3 SECONDS (10.0-11.7)
[2017-04-26 12:48] LABS: URINE SOURCE CLEAN CATCH
[2017-04-26 12:58] LABS: ALBUMIN SERUM 3.2 g/dL (3.5-5.0); BILIRUBIN, DIRECT 0.1 mg/dL (0.0-0.2); BILIRUBIN,INDIRECT 0.5 mg/dL (0.0-0.9); BILIRUBIN,TOTAL 0.6 mg/dL (0.2-2.0); BUN/CREATININE RATIO 18.7; CALCIUM SERUM 9.2 mg/dL (8.4-10.2); CREATININE SERUM 3.1 mg/dL (0.6-1.4); GLOM FILT RATE Estimated 15.9 mL/min (>60); POTASSIUM 4.1 mmol/L (3.5-5.1); PROTEIN TOTAL SERUM 8.4 g/dL (6.0-8.3)
[2017-04-26 13:04] LABS: URINE APPEARANCE CLOUDY; URINE BILIRUBIN NEG (NEG); URINE BLOOD 4+ (NEG); URINE COLOR AMBER; URINE GLUCOSE 100 MG/DL (NORM); URINE KETONE NEG (NEG); URINE LEUKOCYTE ESTERASE 3+ (NEG); URINE NITRATE NEG (NEG); URINE PH 6.5 (5-8); URINE PROTEIN 1+ (NEG); URINE UROBILINOGEN NORM (NORM)
[2017-04-26 13:09] LABS: CULTURE INDICATED? YES; URBCS1 AUWI INNUM /[HPF] (0-2); URINE BACTERIA AUWI NEG (NEGATIVE); URINE SQUAMOUS EPITHELIAL CELL OCC /[HPF]; UWBCS1 AUWI 200-300 (0-5)
[2017-05-19] MEDS ORDERED: SIMVASTATIN10 MG PO (11:06)
[2017-05-19] MEDS ORDERED: FUROSEMIDE40 MG PO (11:07)
[2017-05-31] MEDS ORDERED: LEVEMIR FL100 UNIT/1 SUBQ (11:00)
[2017-05-31] MEDS ORDERED: ALBUTEROL 0.5ML NEB (11:01)
[2017-05-31] MEDS ORDERED: PERCOCET10 PO (11:01)
[2017-05-31] MEDS ORDERED: IPRAT-ALBUT 0.5-3 ML NEB (11:01)
[2017-05-31] MEDS ORDERED: MILK OF MAGNESIA PO (11:01)
[2017-05-31] MEDS ORDERED: SEROQUEL PO (11:02)
[2017-05-31] MEDS ORDERED: LEVAQUIN PO (11:02)
[2017-05-31] MEDS ORDERED: ZOCOR PO (11:02)
[2017-05-31] MEDS ORDERED: NOVOLOG100 U/ML SUBQ (11:02)
[2017-05-31] MEDS ORDERED: DESYREL50 MG PO (11:02)
[2017-05-31] MEDS ORDERED: FLOMAX0.4 M1 PO (11:02)
[2017-05-31] MEDS ORDERED: ACETAMINOPHEN650 M3 PO (11:03)
[2017-05-31] MEDS ORDERED: ALPRAZOLAM0.25 MG PO (11:03)
[2017-05-31] MEDS ORDERED: FLAGYL PO (11:03)
[2017-05-31] MEDS ORDERED: FUROSEMIDE40 MG PO (11:04)
[2017-05-31] MEDS ORDERED: LEVETIRACETAM500 M1 PO (11:04)
[2017-05-31] MEDS ORDERED: LOPRESSOR PO (11:04)
[2017-05-31] MEDS ORDERED: DOC-Q-LACE100 MG PO (11:04)
[2017-05-31] MEDS ORDERED: IMDUR PO (11:05)
[2017-05-31] MEDS ORDERED: NORVASC PO (11:05)
[2017-05-31] MEDS ORDERED: DULOXETINE HCL60 MG PO (11:05)
[2017-05-31] MEDS ORDERED: ALDACTONE PO (11:05)
[2017-05-31] MEDS ORDERED: ALLERCLEAR10 MG PO (11:05)
[2017-05-31] MEDS ORDERED: NEURONTIN100 MG PO (11:06)
[2017-05-31] MEDS ORDERED: ARANESP SUBQ (11:06)
[2017-05-31] MEDS ORDERED: TRADJENTA5 MG PO (11:07)
[2017-05-31] MEDS ORDERED: DITROPAN XL PO (11:07)
[2017-05-31] MEDS ORDERED: MIRALAX17 GM PO (11:07)
[2017-05-31] MEDS ORDERED: AMANTADINE100 M1 PO (11:07)
[2017-05-31] MEDS ORDERED: LINZESS145 MCG PO (11:07)
[2017-05-31] MEDS ORDERED: MAGNESIUM400 MG PO (11:07)
[2017-05-31] MEDS ORDERED: ACID CONTROL150 M1 PO (11:08)
[2017-05-31] MEDS ORDERED: ESOMEPRAZOLE MA20 MG PO (11:08)
[2017-05-31] MEDS ORDERED: CALCIUM ACETAT667 MG PO (11:08)
[2017-05-31] MEDS ORDERED: ST JOSEPH ASPIR81 MG PO (11:08)
[2017-05-31] MEDS ORDERED: CLOPIDOGREL75 MG PO (11:08)
== END 2017-04-26 14:47 | disposition home or self-care (01) ==
LOC: CED 11:29
PROVIDERS: Emergency Medicine
DX: N30.00 Acute cystitis without hematuria (principal); E11.9 Type 2 diabetes mellitus without complications; I10 Essential (primary) hypertension; F31.9 Bipolar disorder, unspecified; F41.9 Anxiety disorder, unspecified; Z79.899 Other long term (current) drug therapy
CPT/HCPCS: 36415; 80048; 80076; 81003; 85025; 85610; 85730; 87086; 96374; 99284; J0696

== ENCOUNTER 2017-05-05 22:00 | Emergency (ER) | payer MEDICARE, OTHER ==
[~2017-05-05] VITALS: Ht 162.6 cm; Wt 90.7 kg
--- NOTE | ~2017-05-05 | CT4 ---
[facility] A Service of [facility] RADIOLOGY TEXT RESULTS PATIENT: SIMON BERNSTEIN LOCATION: [facility] : 60 UNIT #: [id number] AGE: [address]: Faheem Mcwilliams MD SEX: F ORDER DR: [id number] [facility] [address] [place], [place] [address] [id number] MR#: [id number] Acc #: [id number] NAME: SIMON BERNSTEIN : 1960 SEX: F STUDY DATE/TIME: 05/05/2017 23:12 UNIT: [facility] ROOM: STUDY DESCRIPTION: CT Abd and Pelv Wo Cont Attending Physician: Faheem Mcwilliams M.D. Ordering Physician: Faheem Mcwilliams M.D. Primary Care Physician: Edgar Goodrich M.D. MEDICAL IMAGING REPORT This report is preliminary unless electronic signature is present EXAM CT abdomen and pelvis 05/05 23:12. INDICATIONS Hematuria for 1 week with nausea and weakness. TECHNIQUE Axial images were obtained through the abdomen and pelvis without contrast. Multiplanar reformats were obtained. This CT exam was performed with one or more of the following radiation dose reduction techniques: Automatic exposure control, adjustment of mA and/or kV according to patient size, and iterative reconstruction. COMPARISON Comparison made with 07/12/2014. Comparison also made with chest CT from 03/21/2017 as well as a renal ultrasound from 02/28/2017. FINDINGS Abdomen: Minimal atelectasis in the lung bases. Gallbladder unremarkable. There is diffuse atherosclerotic disease. No ureteral stones are seen and there is no hydronephrosis on either side. The right kidney remains atrophic. It contains multiple cysts. The left kidney contains multiple cysts in the lower pole. There is also a calcification in the lower pole that appears to be the cortex rather than in the collecting system. Fat stranding behind the left kidney is present and this may reflect some scarring as there was previously soft tissue density or hematoma in this location. There is some scarring in the left flank tissues. The liver has a somewhat scalloped contour and is somewhat worsened from the prior study. Correlate clinically for any evidence of cirrhosis. Remaining solid organs are within normal limits. Unopacified GI tract is grossly normal. Pelvis: Patient has multiple redundant loops of sigmoid colon. The GI STS. [facility] A Service of [facility] RADIOLOGY TEXT RESULTS PATIENT: SIMON BERNSTEIN LOCATION: [facility] : 60 UNIT #: [id number] AGE: [address]: Faheem Mcwilliams MD SEX: F ORDER DR: tract, including the appendix , is otherwise normal. There is atherosclerotic disease. Urinary bladder is normal. There are bilateral ovarian cystic lesions. Given patient age, I would recommend outpatient ultrasound followup. The 1 on the left measures 3.6 cm. The 1 on the right measures 3.1 cm. IMPRESSION 1. The unopacified GI tract including the appendix is normal except for redundant loops of sigmoid colon as an anatomic variant. 2. Stable atrophic multicystic appearance of the right kidney. 3. Multiple cysts are noted in the tgt-wy-dkoaa left kidney. No renal or ureteral stones are seen on either side and there is no hydronephrosis. 4. Fat stranding behind the left kidney is probably scar tissue as there is also some scar tissue in the left flank. This area was abnormal on the patient's CT in 2013. 5. Scalloped appearance to the liver may indicate cirrhosis. Correlate clinically. 6. Diffuse atherosclerotic disease. 7. Bilateral ovarian cystic lesions are new from the prior CT. Outpatient pelvic ultrasound recommended given the patient's age. Dictated by... Faheem Reyes Jr., M.D. THIS IS AN ELECTRONICALLY VERIFIED REPORT Faheem Reyes Jr., M.D. at 05/07/2017 12:51 AM GRETCHEN/mike TD: 05/06/2017 06:44 JOB #: [id number] MEDICAL IMAGING REPORT Page 1 of 1 COPY
[2017-05-05 22:59] LABS: URINE SOURCE CLEAN CATCH
[2017-05-05 23:08] LABS: URINE APPEARANCE CLOUDY; URINE BILIRUBIN NEG (NEG); URINE BLOOD 3+ (NEG); URINE COLOR ORANGE; URINE GLUCOSE 500 MG/DL (NEG); URINE KETONE NEG (NEG); URINE LEUKOCYTE ESTERASE 3+ (NEG); URINE NITRATE NEG (NEG); URINE PROTEIN 2+ (NEG); URINE SPECIFIC GRAVITY 1.011 (1.003-1.035); URINE UROBILINOGEN 0.2 MG/DL (NEG)
[2017-05-05 23:09] LABS: BASOPHIL% 0.4 % (0-2.5); DIFF IND NO; EOSINOPHIL# 0.4 X10e3 (0-0.7); EOSINOPHIL% 5.6 % (0.0-7.0); HEMATOCRIT 30.1 % (35.0-45.0); HEMOGLOBIN 9.8 gm/dL (12.0-16.0); LYMPHOCYTE# 1.1 X10e3 (1.0-3.5); MEAN CELL VOLUME 85.6 FL (83-96); MEAN CORPUSCULAR HEMOGLOBIN 27.9 PG (28-34); MEAN CORPUSCULAR HGB CONC 32.6 g/dL (30-36); MONOCYTE# 0.8 X10e3 (0-1.0); MONOCYTE% 10.4 % (3.0-12.0); NEUTROPHIL# 5.2 X10e3 (1.5-7.1); NEUTROPHIL% 68.6 % (40-75); PLATELET COUNT 120 X10e3 (140-420); RED BLOOD COUNT 3.52 X10e (3.90-5.30); RED CELL DISTRIBUTION WIDTH 19.3 % (11.0-15.5); WHITE BLOOD COUNT 7.6 X10e3 (4.0-10.5)
[2017-05-05 23:13] LABS: CULTURE INDICATED? YES; URBCS1 AUWI INNUM /[HPF] (0-2); URINE BACTERIA AUWI NEG (NEGATIVE); URINE SQUAMOUS EPITHELIAL CELL OCC /[HPF]; UWBCS1 AUWI 200-300 (0-5)
[2017-05-05 23:42] LABS: BUN/CREATININE RATIO 15.89; CALCIUM SERUM 9.9 mg/dL (8.4-10.2); CREATININE SERUM 3.9 mg/dL (0.6-1.4); GLOM FILT RATE Estimated 12.1 mL/min (>60); POTASSIUM 4.3 mmol/L (3.5-5.1)
[2017-05-19] MEDS ORDERED: SIMVASTATIN10 MG PO (11:06)
[2017-05-19] MEDS ORDERED: FUROSEMIDE40 MG PO (11:07)
[2017-05-31] MEDS ORDERED: LEVEMIR FL100 UNIT/1 SUBQ (11:00)
[2017-05-31] MEDS ORDERED: ALBUTEROL 0.5ML NEB (11:01)
[2017-05-31] MEDS ORDERED: IPRAT-ALBUT 0.5-3 ML NEB (11:01)
[2017-05-31] MEDS ORDERED: PERCOCET10 PO (11:01)
[2017-05-31] MEDS ORDERED: MILK OF MAGNESIA PO (11:01)
[2017-05-31] MEDS ORDERED: ZOCOR PO (11:02)
[2017-05-31] MEDS ORDERED: SEROQUEL PO (11:02)
[2017-05-31] MEDS ORDERED: LEVAQUIN PO (11:02)
[2017-05-31] MEDS ORDERED: DESYREL50 MG PO (11:02)
[2017-05-31] MEDS ORDERED: NOVOLOG100 U/ML SUBQ (11:02)
[2017-05-31] MEDS ORDERED: FLOMAX0.4 M1 PO (11:02)
[2017-05-31] MEDS ORDERED: ACETAMINOPHEN650 M3 PO (11:03)
[2017-05-31] MEDS ORDERED: ALPRAZOLAM0.25 MG PO (11:03)
[2017-05-31] MEDS ORDERED: FLAGYL PO (11:03)
[2017-05-31] MEDS ORDERED: LEVETIRACETAM500 M1 PO (11:04)
[2017-05-31] MEDS ORDERED: LOPRESSOR PO (11:04)
[2017-05-31] MEDS ORDERED: DOC-Q-LACE100 MG PO (11:04)
[2017-05-31] MEDS ORDERED: FUROSEMIDE40 MG PO (11:04)
[2017-05-31] MEDS ORDERED: IMDUR PO (11:05)
[2017-05-31] MEDS ORDERED: DULOXETINE HCL60 MG PO (11:05)
[2017-05-31] MEDS ORDERED: ALDACTONE PO (11:05)
[2017-05-31] MEDS ORDERED: ALLERCLEAR10 MG PO (11:05)
[2017-05-31] MEDS ORDERED: NORVASC PO (11:05)
[2017-05-31] MEDS ORDERED: ARANESP SUBQ (11:06)
[2017-05-31] MEDS ORDERED: NEURONTIN100 MG PO (11:06)
[2017-05-31] MEDS ORDERED: MIRALAX17 GM PO (11:07)
[2017-05-31] MEDS ORDERED: TRADJENTA5 MG PO (11:07)
[2017-05-31] MEDS ORDERED: AMANTADINE100 M1 PO (11:07)
[2017-05-31] MEDS ORDERED: MAGNESIUM400 MG PO (11:07)
[2017-05-31] MEDS ORDERED: LINZESS145 MCG PO (11:07)
[2017-05-31] MEDS ORDERED: DITROPAN XL PO (11:07)
[2017-05-31] MEDS ORDERED: CLOPIDOGREL75 MG PO (11:08)
[2017-05-31] MEDS ORDERED: ACID CONTROL150 M1 PO (11:08)
[2017-05-31] MEDS ORDERED: ESOMEPRAZOLE MA20 MG PO (11:08)
[2017-05-31] MEDS ORDERED: ST JOSEPH ASPIR81 MG PO (11:08)
[2017-05-31] MEDS ORDERED: CALCIUM ACETAT667 MG PO (11:08)
== END 2017-05-06 05:00 | disposition home or self-care (01) ==
LOC: CED 22:00
PROVIDERS: Emergency Medicine
DX: N39.0 Urinary tract infection, site not specified (principal); E11.65 Type 2 diabetes mellitus with hyperglycemia; D64.9 Anemia, unspecified; Z86.73 Personal history of transient ischemic attack (TIA), and cerebral infarction without residual deficits; Z79.82 Long term (current) use of aspirin; Z79.4 Long term (current) use of insulin; Z79.899 Other long term (current) drug therapy
CPT/HCPCS: 74176; 80048; 81003; 82947; 85025; 87086; 96361; 96365; 96375; 96376; 99284; J0696

== ENCOUNTER 2017-05-11 08:35 | Inpatient (IN) | payer MEDICARE, OTHER ==
[~2017-05-11] VITALS: Ht 162.6 cm; Wt 93.5 kg
--- NOTE | ~2017-05-11 | CT4 ---
[facility] A Service of [facility] RADIOLOGY TEXT RESULTS PATIENT: SIMON BERNSTEIN LOCATION: C2A 230-01 : 60 UNIT #: [id number] AGE: [address]: Breann Riddle MD SEX: F ORDER DR: [id number] [facility] [address] [place], [place] [address] [id number] MR#: [id number] #: [id number] NAME: SIMON BERNSTEIN : 1960 SEX: F STUDY DATE/TIME: 05/12/2017 16:01 UNIT: C2A ROOM: 230 STUDY DESCRIPTION: CT Abd and Pelv Wo Cont Attending Physician: Breann Riddle M.D. Ordering Physician: Sincere Ball M.D. Primary Care Physician: Edgar Goodrich M.D. MEDICAL IMAGING REPORT This report is preliminary unless electronic signature is present EXAM CT scan of the abdomen and pelvis without contrast, 05/12/2017 HISTORY Urinary retention for 1 week with painful urination and bilateral lower back pain and hematuria. Evaluate for obstructing renal calculus. TECHNIQUE Spiral CT was performed through the abdomen and pelvis without oral or intravenous contrast administration using renal stone protocol. This CT exam was performed with one or more of the following radiation dose reduction techniques: Automatic exposure control, adjustment of mA and/or kV according to patient size, and iterative reconstruction. FINDINGS There is no evidence of hydronephrosis. Mild left ureterectasis is again noted, unchanged compared with 05/11/2017. 1 mm probable stone distal left ureter at the left ureterovesical junction is not significantly changed compared with 05/11/2017. Both kidneys are atrophic, right greater than left, with cystic changes in both kidneys unchanged. The liver, spleen, gallbladder and biliary tree and adrenal glands are normal. The pancreas is somewhat atrophic. PELVIS FINDINGS: The gut, mesenteric and jason structures are normal. There is no free fluid in the abdomen or pelvis. IMPRESSION 1. No change in the 1 mm probable stone distal left ureter at the left ureterovesical junction compared with 05/11/2017. There is no evidence of hydronephrosis, although slight left ureterectasis is unchanged. 2. Both kidneys are atrophic, right greater than left, with stable cystic changes in both kidneys compared with 05/11/2017. [facility] A Service of [facility] RADIOLOGY TEXT RESULTS PATIENT: SIMON BERNSTEIN LOCATION: [place] [address] : 60 UNIT #: [id number] AGE: [address]: Breann Riddle MD SEX: F ORDER DR: 3. Pancreas is mildly atrophic. Dictated by... Ángel Levine M.D. THIS IS AN ELECTRONICALLY VERIFIED REPORT Ángel Levine M.D. at 05/13/2017 2:12 PM KRT/psc TD: 05/12/2017 22:13 JOB #: [id number] MEDICAL IMAGING REPORT Page 1 of 1 COPY
--- NOTE | ~2017-05-11 | DS ---
Unit #: [id number] #: [id number] Patient: SIMON BERNSTEIN [id number] [address] [address] [id number] I MR#: [id number] NAME: SIMON BERNSTEIN ROOM: 230 Age: 57 Sex: F Admission Date: 05/11/2017 : 1960 Discharge Date: 05/14/2017 Attending Physician: Breann Riddle M.D. Primary Care Physician: Edgar Goodrich M.D. DISCHARGE SUMMARY PRINCIPAL DIAGNOSES 1. Hematuria secondary to ureterovesicular stone, nonobstructive. 2. Acute urinary retention. Currently awaiting spontaneous voiding. 3. Acute kidney injury on chronic kidney disease stage 4, with discharge creatinine of 3.1. Baseline creatinine is approximately 3.1 as well. 4. Systemic inflammatory response syndrome without evidence of infection. 5. Diabetes mellitus type 2, insulin requiring and uncontrolled. Hemoglobin A1c is 8.3. 6. Anemia of chronic kidney disease. Maintained on Aranesp. 7. Chronic thrombocytopenia with discharge platelet count of 91,000. 8. Obstructive sleep apnea, maintained on Trilogy vent at bedtime. 9. Hypertension. 10. Chronic obstructive pulmonary disease. 11. Diabetic peripheral neuropathy. 12. Seizure disorder. 13. Depression. 14. Seasonal allergies. 15. Urge incontinence. 16. Coronary artery disease. 17. Chronic constipation. 18. Chronic back pain, maintained on narcotics. 19. History of subarachnoid hemorrhage. 20. Morbid obesity. 21. Hyperlipidemia. 22. Gastroesophageal reflux disease. 23. Tenia infection of the skin folds. CONSULTANTS Dr. Belle, nephrology. Dr. Morin, urology. DIAGNOSTIC DATA IMAGING: CT scan of the abdomen and pelvis without contrast on 05/11/2017 with atrophy of the kidneys bilaterally, right greater than left. Cystic changes in the kidneys are noted. There is mild left ureteral ureterectasis with a punctate stone in the distal left ureter. Moderate stool throughout the colon. Diffuse atherosclerotic change noted. Chris x-ray on 05/12/2017 with cardiomegaly. No other acute findings. CT scan abdomen and pelvis without contrast on 05/12/2017 again with 1 mm stone in the distal left ureter at the left ureterovesicular junction. No evidence of hydronephrosis. Atrophic kidneys noted. Pancreas is mildly Unit #: [id number] #: [id number] Patient: SIMON BERNSTEIN. CLINICAL HISTORY/HOSPITAL COURSE Ms. Bernstein is a nice 57-year-old female transferred from the nursing facility after she was found to be unable to void. Urinalysis in the emergency department revealed significant hematuria in addition to many white blood cells. There are concerns that perhaps she had underlying urinary tract infection and the patient was subsequently admitted. The patient was placed on empiric antibiotics for presumed urinary tract infection. However, urine culture was ultimately negative. Urology was consulted, given her hematuria and Carlos catheter was placed in the emergency department. CT scan revealed a left-sided ureteral stone and there were concerns that perhaps she was in the process of passing it. Hence, a second CT scan was done the following day and the stone remained stable. At this point, given her hematuria has improved significantly, the plan is simply to remove the Carlos and await a voiding trial and the patient will be seen on an outpatient basis for cystoscopy and any sort of stenting and/or stone removal as necessary. She will be maintained on Flomax. Again, as noted above, the patient did have urinary retention. My clinical suspicion is that perhaps she has some underlying diabetic neuropathy and this can be followed up at the nursing facility. She may need urodynamics done on an outpatient basis. The patient also has chronic kidney disease stage 4 and during hospitalization creatinine reached as high as 3.9 from her baseline of 3.1. Dr. Belle was consulted. Diuretics were held. The patient was placed on IV fluids. On the day of discharge her creatinine is now back down to 3.1, which again is her baseline. We will reinitiate a lower dose of diuretics and she will be followed up by her primary hackler doll wigs, Dr. Michaud, as an outpatient. The patient also had significant hyperglycemia throughout the hospitalization and hemoglobin A1c indicates difficulty with control at home. I have increased her dose of insulin and Accu-Cheks can be monitored at the nursing facility. The patient is otherwise clinically stable at her baseline and will be discharged back to the nursing facility today. DISCHARGE CONDITION Stable. DISCHARGE DISPOSITION Discharge to [facility]dc. DISCHARGE MEDICATIONS 1. Albuterol sulfate nebulizer solution 3 ml q.4 h. p.r.n. shortness of breath. 2. Duo-Neb nebulizer treatments 3 ml q.6 h. p.r.n. shortness of breath. 3. Flomax 0.4 mg at bedtime. 4. Tylenol 650 mg p.o. q.6 h. p.r.n. pain. 5. Magnesium oxide 400 mg daily. 6. Neurontin 100 mg p.o. t.i.d. 7. Keppra 500 mg b.i.d. Unit #: [id number] #: [id number] Patient: SIMON BERNSTEIN 8. Cymbalta 60 mg daily. 9. Trazodone 50 mg at bedtime. 10. Mycostatin powder topically b.i.d. to breast folds and groin folds. 11. Claritin 10 mg daily. 12. Seroquel 200 mg at bedtime. 13. Amantadine 100 mg b.i.d. 14. Xanax 0.25 mg b.i.d. p.r.n. anxiety. 15. Norvasc 5 mg daily. 16. Metoprolol tartrate 50 mg b.i.d. 17. Colace 100 mg b.i.d. 18. Milk of Magnesia 30 ml p.o. daily p.r.n. constipation. 19. MiraLAX 17 g p.o. daily. 20. Tradjenta 5 mg daily. 21. Lasix 40 mg b.i.d. Please note this is a dose decrease. 22. Ditropan 5 mg daily. 23. Linzess 145 mcg p.o. daily. 24. Aranesp injections every other week on Tuesdays. 25. Zocor 10 mg at bedtime. 26. Levemir 93 units subcutaneously b.i.d. 27. NovoLog 13 units subcutaneous t.i.d. with meals with associated sliding scale. 28. Ranitidine 150 mg daily. 29. Aspirin 81 mg daily. 30. Percocet 5/325 mg 1 tablet p.o. q.6 h. p.r.n. pain. 31. Plavix 75 mg daily. 32. Spironolactone 12.5 mg p.o. daily. 33. PhosLo 667 mg p.o. t.i.d. with meals. 34. Imdur ER 60 mg daily. DISCHARGE DIET The patient is instructed to follow a heart healthy, constant carb diet. She will continue Accu-Cheks morning and evening. ACTIVITY She can increase her activity as tolerated. She will be discharged back to the [facility]dc if she is unable to spontaneously void after Carlos removal here today. FOLLOWUP 1. The patient is to follow up with Dr. Morin in approximately two weeks. 2. She will follow up with Dr. Michaud, her primary hackler doll wigs as previously scheduled. 3. The patient will follow up with Dr. Goodrich upon return to the facility. 4. She should have follow-up BMP and CBC done on 05/18/2017. Time spent on discharge today 36 minutes. Dictated by... Breann Riddle M.D. JUAN/lena Unit #: [id number] #: [id number] Patient: SIMON BERNSTEIN TD: 05/14/2017 10:35 JOB #: [id number] DISCHARGE SUMMARY Page 1 of 1 X Breann Riddle MD X DISCHARGE SUMMARY
--- NOTE | ~2017-05-11 | CO ---
Unit #: [id number] #: [id number] Patient: YOKASTA BERNSTEIN [id number] [address] [place], [place] [address] [id number] I MR#: [id number] NAME: YOKASTA BERNSTEIN ROOM: 230 Age: 57 Sex: F Admission Date: 05/11/2017 : 1960 Attending Physician: Breann Riddle M.D. Primary Care Physician: Edgar Goodrich M.D. Consultation Date: 05/13/2017 CONSULTATION REPORT REASON FOR CONSULT Renal insufficiency. Thank you very much for asking me to see this patient again. Ms. Yokasta Bernstein is a 57-year-old female with a history of chronic kidney disease. Is followed in the office by Dr. Michaud although we have seen multiple times in the hospital. His baseline creatinine was around 1.8 to 2 prior to October where she underwent a heart catheterization and stents and every time she comes in her new baseline is probably now a creatinine of 3.0 with chronic kidney disease stage 4. Presented to the hospital several days ago with difficulty urinating, back pain, gross hematuria prior to presentation. Was admitted here. Prior to that, she had gone to the emergency room and received Omnicef for probable UTI. Upon presentation here, she was noted to have a creatinine of 3.5. Went down to 3.3 yesterday and up to 3.5 today. The patient now currently has a Carlos catheter. Dr. Walsh, urology, is following the patient now. Patient underwent a CT scan of the abdomen and pelvis without contrast. Showed no hydronephrosis, a small stone distal left ureter. The patient currently feels better, denies any shortness of breath. No chest pain, no chest heaviness, no nausea or vomiting. PAST MEDICAL HISTORY 1. History of now chronic kidney disease stage 4 with baseline probably 3+ or minus. 2. History of diastolic congestive heart failure with normal EF. 3. History of atherosclerotic coronary artery disease, status post MS and stents, again with a normal EF. 4. History of hypertension. 5. History of hyperlipidemia. 6. History of seizure disorder. 7. History of obesity. 8. History of anemia. 9. History of UTI. 10. History of diabetes mellitus. 11. History of sacral decub. 12. History of chronic immobilization. 13. History of a benign bladder mass in 07/2016. 14. History of a partial right nephrectomy with wedge resection in 2013, benign. 15. She is status post craniotomy, status post subdural. ALLERGIES No known drug allergies. Unit #: [id number] #: [id number] Patient: YOKASTA BERNSTEIN SOCIAL HISTORY She was a previous smoker up until about four months ago when she states she stopped. She permanently lives in a rehab. No alcohol. MEDICATIONS Her current medications include: 1. Lovenox 30 mg subcu. 2. Seroquel 20 mg a day. 3. Pepcid, now 20 mg twice a day. 4. She was on Protonix which was DC'd yesterday. 5. She is on insulin. 6. She is on Norvasc 5 mg a day. 7. Claritin 10 mg a day. 8. Magnesium pill 400 mg a day. 9. Spironolactone 25 mg a day. 10. Imdur 60 mg a day. 11. Plavix 75 mg a day. 12. She is on Linzess 145 mcg a day. 13. Zocor 10 mg at night. 14. Desyrel 50 mg at night. 15. Flomax 0.4 mg a day. 16. Keppra 500 mg twice a day. 17. Symmetrel 100 mg b.i.d. 18. Colace 100 mg b.i.d. 19. Lopressor 50 mg b.i.d. 20. Tylenol p.r.n. for pain. 21. Lasix 80 mg twice a day p.o. 22. PhosLo 667 with meals. 23. Neurontin 100 mg t.i.d. 24. Inhalers. 25. Xanax 0.25 mg b.i.d. p.r.n. 26. Percocet p.r.n. 27. Ditropan 5 mg a day. 28. Cymbalta 60 mg a day. 29. Aspirin 81 mg a day. REVIEW OF SYSTEMS Currently, she denies any headaches, dizziness, visual problems, sinus problems. She denies any cough or hemoptysis. No neck pain or neck stiffness. She denies any chest pain, chest heaviness, palpitations. She currently denies any significant shortness of breath. She denies any abdominal pain. Her urinary symptoms have resolved although, again, she is with Carlos. She denies any significant lower extremity swelling. She denies any recent seizures, strokes or skin rashes. FAMILY HISTORY Noncontributory. PHYSICAL EXAM GENERAL: She is alert. VITAL SIGNS: Temperature is 98.9 for the last 24 hours, pulse 58-80, blood pressure 114-145/46-70. She had 1480 in, out 2450. HEENT: She is normocephalic, atraumatic. Pupils are equal, round, reactive to light. Extraocular muscles are intact. Hearing appears to be normal. Mouth is clear. No erythema, no exudate. NECK: Supple. No JVD, no adenopathy. CARDIAC: She appears to have a regular rhythm without a rub. No S3 or S4. Unit #: [id number] #: [id number] Patient: YOKASTA BERNSTEIN LUNGS: Her lungs sound fairly clear bilaterally. No wheezes, rhonchi or rales. ABDOMEN: Bowel sounds are positive. Obese, nontender. EXTREMITIES: She has no lower extremity swelling. Pulses are intact in lower extremities. JOINTS: No joint swelling. : Carlos catheter is in place. DIAGNOSTIC STUDIES LABORATORY DATA: Laboratory data this morning shows a sodium of 136, potassium 4.1, chloride is 93, bicarb is 33, BUN of 58, creatinine 3.5, glucose 292, calcium is 9.1, total protein 9.3 when she came in with albumin of 3.6. BNP 799, lactic acid was 2.2 down to 1.2. IMAGING: Her CT scan of the abdomen and pelvis without contrast as noted above. Her urine culture and urine blood cultures are negative at 24 hours. Hemoglobin is 9.4, white count 6600, platelets 96,000. Her UA did show 2+ protein, 500 glucose, too numerous to count RBCs and WBCs. Creatinine on May 05 was 3.9. When she was in the emergency room on 04/20/17, upon discharge it was down to 3.1. ASSESSMENT AND PLAN 1. Acute on chronic kidney disease stage 4. Again, I think that the patient's new baseline is a creatinine around 3. Certainly worse again today. Even though she has a history of diastolic congestive heart failure, I don't see any fluid on exam. Lungs are clear and her creatinine is up again. I wonder if we are a little over-diuresing her. I am going to hold her Aldactone and Lasix today and give her just 2 L of normal saline over the next 24 hours and probably restart some diuretics at a lower dose on her in a day or two depending on her labs and her volume status. I don't see a recent serum protein immunofixation and she does have a history of anemia as well and she had a high protein to albumin level. I am going to go ahead and check serum protein immunofixation. Will also check a urine eosinophils to make sure she doesn't have some sort of acute interstitial nephritis related to all the different multiple antibiotics she has received in the past and other medications. Agree with stopping her PPI and switch him over to Pepcid although will have to watch her platelets. Will check labs in the morning. Will continue to follow. Carlos catheter per . 2. Hematuria/stone/UTI, again, per urology. 3. Diabetes mellitus with increased glucose. Certainly, could also be contributing to increased output and a little volume depletion. 4. History of heart disease, status post stents. Normal EF. 5. Hypertension. Certainly would not use an angiotensin receptor liliana and GABRIELLE inhibitor on her at this time. 6. Chronic immobilization. 7. Anemia with low FE storers in March. She also did receive what looks like two doses of IV iron at that time. Unit #: [id number] #: [id number] Patient: YOKASTA BERNSTEIN Dictated by.Lisandra Belle M.D. VALERIA/joanna TD: 05/14/2017 07:17 JOB #: [id number] CONSULTATION REPORT Page 1 of 1 X Nicolasa Belle MD X CONSULTATION REPORT
--- NOTE | ~2017-05-11 | CR63 ---
[facility] A Service of [facility] & [facility] RADIOLOGY TEXT RESULTS PATIENT: SIMON BERNSTEIN LOCATION: [facility] 308-01 : [birth year] UNIT #: [id number] AGE: [address]: Breann Riddle MD SEX: F ORDER DR: [id number] [facility] [address] [facility]. [place], [place] [address] [id number] E MR#: [id number] Acc #: [id number] NAME: SIMON BERNSTEIN : 1960 SEX: F STUDY DATE/TIME: 05/11/2017 11:18 UNIT: [facility] ROOM: STUDY DESCRIPTION: CR Chest 2 View Attending Physician: Cyndie Gonzalez A.P.R.N. Ordering Physician: Ed Sudheer Ball M.D. Primary Care Physician: Edgar Goodrich M.D. MEDICAL IMAGING REPORT This report is preliminary unless electronic signature is present EXAM Two-view chest 05/11/2017. HISTORY 57-year-old female with shortness of air and cough beginning today. COMPARISON Chest 04/15/2017. FINDINGS 2 views of the chest demonstrates mild cardiomegaly which is stable. Mediastinum and pulmonary vasculature appear unremarkable. Lungs are grossly clear. No pneumothorax. IMPRESSION Stable mild cardiomegaly. No other acute chest findings. Dictated by... Jacob Bishop M.D. THIS IS AN ELECTRONICALLY VERIFIED REPORT Jacob Bishop M.D. at 05/12/2017 8:58 AM ABBY/lena TD: 05/11/2017 12:42 JOB #: [id number] MEDICAL IMAGING REPORT Page 1 of 1 COPY
--- NOTE | ~2017-05-11 | CT4 ---
[facility] A Service of [facility] & [facility] RADIOLOGY TEXT RESULTS PATIENT: SIMON BERNSTEIN LOCATION: [facility] 308-01 : [birth year] UNIT #: [id number] AGE: [address]: Breann Riddle MD SEX: F ORDER DR: [id number] [facility] [address] [facility]. [place], [place] [address] [id number] I MR#: [id number] Acc #: [id number] NAME: SIMON BERNSTEIN : 1960 SEX: F STUDY DATE/TIME: 05/11/2017 1109 UNIT: A PCU ROOM: [facility] STUDY DESCRIPTION: CT Abd and Pelv Wo Cont Attending Physician: Breann Riddle M.D. Ordering Physician: Ed Doctor [id number] [facility] Primary Care Physician: Edgar Goodrich M.D. MEDICAL IMAGING REPORT This report is preliminary unless electronic signature is present EXAM CT abdomen and pelvis without contrast 05/11/2017 1109 hours HISTORY 57-year-old with stage III renal failure, complaining of abdominal pain for 2 days with urinary tract infection, urinary retention. History of bladder tumor and diabetes. COMPARISON CT abdomen and pelvis 05/05/2017 TECHNIQUE Helical noncontrasted images were obtained from the lung bases through the pubic symphysis. Sagittal and coronal reconstructions were performed. Total exam DLP 560 mGy-cm. This CT exam was performed with one or more of the following radiation dose reduction techniques: automatic exposure control, adjustment of mA and/or kV according to patient size, and iterative reconstruction. FINDINGS The lung bases demonstrate minimal linear density similar to prior study. There is no acute infiltrate or effusion. Noncontrasted images through the abdomen demonstrate a stable appearance to the liver, spleen, pancreas. The gallbladder is distended on today's exam, representing a change. There is no definite gallbladder wall thickening or inflammation. The adrenal glands are normal. The right kidney is very atrophic with cystic change present. The left kidney demonstrates cystic change in the anterior mid kidney and lower pole with scarring posterior to the kidney. There is a 2-mm calcification in the lower pole unchanged. There is mild left-sided ureterectasis slightly increased from the prior study. On image 112 of series 2, there is STS. [facility] A Service of [facility] RADIOLOGY TEXT RESULTS PATIENT: SIMON BERNSTEIN LOCATION: [facility] 308-01 : [birth year] UNIT #: [id number] AGE: [address]: Breann Riddle MD SEX: F ORDER DR: question raised of a new punctate distal left ureteral stone less than 1 cm from the left ureterovesical junction. This is not seen on 05/05/2017. Correlate with any history of hematuria. Adjacent pelvic phleboliths are unchanged. The stomach is nondistended. There is no small bowel wall thickening. There is increased stool throughout the colon and rectum without definite bowel wall thickening. CT pelvis demonstrates cystic change, left greater than right ovary. IMPRESSION 1. There is atrophy of the kidneys, right worse than left, with cystic changes in the kidneys similar to prior study. There is mild left ureterectasis, slightly increased from 05/05/2017, with question of a punctate stone raised in the distal left ureter, less than 1 cm from the left ureterovesical junction. 2. The gallbladder is distended, representing a change from 05/05/2017; however, there is no gallbladder wall thickening or acute inflammation seen. No bile duct dilatation. 3. Moderate stool throughout the colon without definite colonic wall thickening. 4. Diffuse atherosclerotic changes appear stable. STAT * RESULT Dictated by... Carrie Webster M.D. THIS IS AN ELECTRONICALLY VERIFIED REPORT Carrie Webster M.D. at 05/12/2017 9:31 AM Adi TD: 05/11/2017 12:14 JOB #: [id number] MEDICAL IMAGING REPORT Page 1 of 1 COPY
--- NOTE | ~2017-05-11 | HP ---
Unit #: [id number] #: [id number] Patient: SIMON BERNSTEIN [id number] [address] [address] [id number] I MR#: [id number] NAME: SIMON BERNSTEIN ROOM: 56441 Age: 57 Sex: F Admission Date: 05/11/2017 : 1960 Attending Physician: Leoncio Willis M.D. Primary Care Physician: Edgar Goodrich M.D. HISTORY AND PHYSICAL CHIEF COMPLAINT Unable to void. HISTORY OF PRESENT ILLNESS The patient is a 57-year-old female with a history of multiple medical problems including chronic respiratory failure, coronary artery disease with diastolic congestive heart failure, chronic kidney disease stage 3, and diabetes, who presented to the emergency room complaining of being unable to void. The patient was recently seen in the emergency room on May 08. The patient was discharged back to the retirement on oral antibiotic cefdinir. The patient continues to have trouble with urination. The patient also complains of back pain. The patient had a CT of the abdomen and pelvis that showed punctate renal calculi in the UV junction with urinalysis that showed enumerable urine RBCs and 200-300 urine WBCs. The patient's lactic acid is 2, and he is being admitted for the above reasons. Patient complains of low-grade fevers and chills. Denies any nausea and vomiting. PAST MEDICAL HISTORY 1. History of chronic gastritis with bladder tumor. 2. Hypertension. 3. Chronic kidney disease stage 3. 4. History of MRSA. 5. Subarachnoid hemorrhage. 6. Coronary artery disease. 7. Diabetes. 8. Chronic constipation. 9. Depression. 10. Back pain. 11. Morbid obesity. PAST SURGICAL HISTORY 1. Bilateral tubal ligation. 2. Left retroperitoneal abscess requiring I and D. 3. Inferior pubic ramus fracture and nondisplaced fracture of the right acetabulum. 4. Bilateral shoulder surgery. SOCIAL HISTORY Patient lives at [facility]. She smokes half a pack per day. Denies any alcohol. Code status is Full. FAMILY HISTORY Coronary artery disease, lung cancer, diabetes, and hypertension. Unit #: [id number] #: [id number] Patient: SIMON BERNSTEIN ALLERGIES No known drug allergies. HOME MEDICATIONS 1. Calcium. 2. Plavix. 3. Imdur. 4. Tradjenta. 5. Aldactone. 6. Flomax. 7. Magnesium. 8. Duloxetine. 9. Loratadine. 10. Norvasc. 11. MiraLAX. 12. Nexium. 13. Aspirin. 14. Aranesp. 15. Linzess. 16. Ranitidine. 17. Ditropan. 18. Neurontin. 19. Lasix. 20. Lopressor. 21. Colace. 22. Amantadine. 23. Keppra. 24. Cefdinir. 25. Dulcolax. 26. Desyrel. 27. Seroquel. 28. Zocor. 29. DuoNebs. 30. Milk of Magnesia. 31. Percocet. 32. Acetaminophen. 33. Xanax. 34. Proventil. 35. NovoLog. 36. Levemir. REVIEW OF SYSTEMS Positive for urinary difficulties and back pain. Denies any chest pain and denies any shortness of breath. All other systems are reviewed and none. PHYSICAL EXAMINATION GENERAL: Patient is lying on the bed, not in acute distress, eating lunch. VITALS: Temperature is 99, pulse 70, respiratory rate 20, blood pressure 181/77, and saturating 96% on room air. HEENT: Head atraumatic and normocephalic. Pupils equal, round, and reacting to light and accommodation. Extraocular movements are intact. NECK: Supple. LUNGS: Decreased air entry at the bases. No rales, no rhonchi. HEART: Regular rate and rhythm. ABDOMEN: Soft. Positive bowel sounds. BACK: CVA tenderness. Unit #: [id number] #: [id number] Patient: SIMON BERNSTEIN EXTREMITIES: Trace edema. NEUROLOGIC: Alert, awake, and oriented. No gross focal motor deficit. DIAGNOSTIC STUDIES LABORATORY: Urinalysis shows 3+ leukocyte esterase, 2+ protein, 3+ blood, enumerable urine RBCs, and 200-300 urine WBCs. Sodium 129, potassium 4, chloride 85, bicarb 30, glucose 426, BUN 58, creatinine 3.5, calcium 9.4, AST 34, ALT 35, and alkaline phosphatase 146. Lipase 17. Lactic acid is 2.2. BNP is 799. Troponin less than 0.05. Blood sugar is 398. WBC 9.1, hemoglobin 10.5, hematocrit 31.8, and platelets 115,000. IMAGING: Chest x-ray shows stable mild cardiomegaly. No other acute chest findings. CT of the abdomen and pelvis shows punctate calculi, stool throughout the colon, gallbladder wall distended, and no thickening. ASSESSMENT 1. Sepsis. 2. Urinary tract infection. 3. (1) nephrolithiasis. 4. Chronic kidney disease stage 3. PLAN Admit the patient to inpatient with telemetry. Continue with IV antibiotic with Zosyn with history of Proteus mirabilis urine cultures back in March resistant to Rocephin and resistant to quinolones. Will have Urology consulted for cystoscopy with the hematuria and repeat the labs again in the morning. Continue with low-dose sliding scale. Follow with sepsis protocol. Further recommendations will follow. Dictated by Linnea Guzman TD: 05/11/2017 17:47 JOB #: [id number] HISTORY AND PHYSICAL Page 1 of 1 X LEONCIO WILLIS MD X HISTORY AND PHYSICAL
--- NOTE | ~2017-05-11 | CO ---
Unit #: [id number] #: [id number] Patient: SIMON BERNSTEIN [id number] [address] [address] [id number] I MR#: [id number] NAME: SIMON BERNSTEIN ROOM: 308 Age: 57 Sex: F Admission Date: 05/11/2017 : 1960 Attending Physician: Breann Riddle M.D. Primary Care Physician: Edgar Goodrich M.D. Consultation Date: 05/12/2017 CONSULTATION REPORT REASON FOR CONSULTATION 1. Left ureteral stone. 2. Urinary retention. 3. Gross hematuria. HISTORY OF PRESENT ILLNESS The patient is a 57-year-old morbidly obese female with multiple medical problems who presented with a one day history of not being able to void. She states she is now voiding spontaneously. She also states that she has gross hematuria for approximately four to five days. She was seen in the ER recently and was treated with IV antibiotic Cefdinir. A urine culture from 05/08/2017 was negative. She also complains of constipation. She underwent a CT of the abdomen and pelvis without IV contrast, which shows very mild left pelvic caliectasis with a possible 1 mm left distal ureteral stone. She states again that her hematuria and urinary retention have resolved. She has been afebrile. She also has a history of bladder mass, status post bladder biopsy in 07/2016 and this was benign. She also has a history of a left renal mass with a wedge resection with negative pathology in 04/2014. PAST MEDICAL HISTORY 1. Stage 3 chronic kidney disease. Baseline creatinine is 3.0 to 3.5. 2. Hypertension. 3. History of MRSA. 4. Diabetes. 5. Obesity. 6. Subarachnoid hemorrhage. 7. Diabetes. 8. Depression. 9. Back pain. 10. Morbid obesity. 11. Coronary artery disease. 12. Paraplegia to the past medical history. PAST SURGICAL HISTORY 1. Left partial nephrectomy. 2. Cysto bladder biopsy. 3. I and D of left retroperitoneal abscess. 4. Bilateral shoulder surgery. SOCIAL HISTORY She lives at [facility]. Positive for tobacco. Negative for alcohol. FAMILY HISTORY Unit #: [id number] #: [id number] Patient: SIMON BERNSTEIN Coronary artery disease, lung cancer, diabetes, hypertension, MEDICATIONS Extensive and documented in the chart. REVIEW OF SYSTEMS Positive for gross hematuria. Positive for urinary hesitancy. Positive for low back pain. Negative for fever. Negative for chills. PHYSICAL EXAMINATION GENERAL: Reveals a morbidly obese white female in no acute distress. VITAL SIGNS: Temperature 98.6, blood pressure 114/53, pulse 60, respirations 20. HEENT: Normocephalic atraumatic. Extraocular movements are intact. NECK: Supple. No lymphadenopathy. LUNGS: Patient is breathing comfortably with normal air movement. HEART: Regular rate and rhythm. ABDOMEN: Soft, nontender, and nondistended. EXTREMITIES: There is no clubbing, cyanosis or edema. DIAGNOSTIC STUDIES LABORATORY STUDIES: Creatinine is 3.5, urinalysis is consistent with pyuria. Glucose is 426. White blood cell count 9.1. IMAGING STUDIES: Noncontrasted CT scan of the abdomen and pelvis was personally reviewed. She has very mild left pelvic atelectasis and possibly a 1 mm punctate stone. ASSESSMENT AND PLAN Gross hematuria. She has a history of benign bladder biopsy in the past. She will need a repeat cystoscopy at some point. We will follow her culture. Her culture was negative on 05/08/2017. We will repeat her CT of the abdomen and pelvis. If she does have any fevers over 101 she will need a stent. I appreciate the opportunity to participate in her care. Dictated by... Vinicio Walsh M.D. SNEHA/ania TD: 05/12/2017 07:30 JOB #: [id number] CONSULTATION REPORT Page 1 of 1 X Vinicio Walsh MD X CONSULTATION REPORT
--- NOTE | ~2017-05-11 | EKG ---
PATIENT: SIMON BERNSTEIN UNIT #: [id number] Ventricular Rate: 68 BPM Atrial Rate: 68 BPM P-R Interval: 138 ms QRS Duration: 88 ms Q-T Interval: 410 ms QTC Calculation(Bezet): 435 ms P [place]: 19 degrees Calculated R [place]: 58 degrees Calculated T [place]: -31 degrees Diagnosis Line: Normal sinus rhythm Diagnosis Line: Left ventricular hypertrophy with repolarization Diagnosis Line: abnormality Diagnosis Line: Abnormal ECG Diagnosis Line: When compared with ECG of 16-APR-2017 08:08, Diagnosis Line: T wave inversion more evident in Inferior leads Diagnosis Line: Inverted T waves have replaced nonspecific T wave Diagnosis Line: abnormality in Lateral leads Diagnosis Line: Confirmed by FRANCIA EM MD ([id number]) on Diagnosis Line: 05/11/2017 12:22:42 PM INTERPRETING MD: MARS
[2017-05-11 09:38] LABS: BASOPHIL% 0.2 % (0-2.5); EOSINOPHIL# 0.1 X10e3 (0-0.7); EOSINOPHIL% 1.1 % (0.0-7.0); HEMATOCRIT 31.8 % (35.0-45.0); HEMOGLOBIN 10.5 gm/dL (12.0-16.0); LYMPHOCYTE# 0.6 X10e3 (1.0-3.5); LYMPHOCYTE% 6.9 % (17.0-45.0); MEAN CELL VOLUME 85.2 FL (83-96); MEAN CORPUSCULAR HEMOGLOBIN 28.1 PG (28-34); MEAN PLATELET VOLUME 7.7 FL (6.5-11.5); MONOCYTE# 0.6 X10e3 (0-1.0); MONOCYTE% 6.3 % (3.0-12.0); NEUTROPHIL# 7.8 X10e3 (1.5-7.1); NEUTROPHIL% 85.5 % (40-75); PLATELET COUNT 115 X10e3 (140-420); RED BLOOD COUNT 3.73 X10e (3.90-5.30); RED CELL DISTRIBUTION WIDTH 20.4 % (11.0-15.5); WHITE BLOOD COUNT 9.1 X10e3 (4.0-10.5)
[2017-05-11 09:41] LABS: DIFF IND NO
[2017-05-11 10:16] LABS: POC - CKMB 6.7 ng/mL (0.0-7.9); POC - TROPONIN <0.05 ng/mL (<=0.05)
[2017-05-11 10:21] LABS: ALBUMIN SERUM 3.6 g/dL (3.5-5.0); BILIRUBIN,TOTAL 0.5 mg/dL (0.2-2.0); BUN/CREATININE RATIO 16.57; CALCIUM SERUM 9.4 mg/dL (8.4-10.2); CREATININE SERUM 3.5 mg/dL (0.6-1.4); GLOM FILT RATE Estimated 13.7 mL/min (>60); PROTEIN TOTAL SERUM 9.3 g/dL (6.0-8.3)
[2017-05-11 11:05] LABS: URINE SOURCE CLEAN CATCH
[2017-05-11 11:10] LABS: URINE APPEARANCE CLOUDY; URINE BILIRUBIN NEG (NEG); URINE BLOOD 3+ (NEG); URINE COLOR YELLOW; URINE GLUCOSE 500 MG/DL (NEG); URINE KETONE NEG (NEG); URINE LEUKOCYTE ESTERASE 3+ (NEG); URINE NITRATE NEG (NEG); URINE PROTEIN 2+ (NEG); URINE SPECIFIC GRAVITY 1.014 (1.003-1.035); URINE UROBILINOGEN 0.2 MG/DL (NEG)
[2017-05-11 11:12] LABS: CULTURE INDICATED? YES; URBCS1 AUWI INNUM /[HPF] (0-2); URINE BACTERIA AUWI NEG (NEGATIVE); URINE SQUAMOUS EPITHELIAL CELL NONE SEEN /[HPF]; UWBCS1 AUWI 200-300 (0-5)
[2017-05-11] MEDS ORDERED: CALCIUM ACETAT667 M1 PO (11:51)
[2017-05-11] MEDS ORDERED: CLOPIDOGREL75 MG PO (11:51)
[2017-05-11] MEDS ORDERED: TRADJENTA5 MG PO (11:52)
[2017-05-11] MEDS ORDERED: ALDACTONE PO (11:52)
[2017-05-11] MEDS ORDERED: FLOMAX0.4 M1 PO (11:52)
[2017-05-11] MEDS ORDERED: IMDUR PO (11:52)
[2017-05-11] MEDS ORDERED: NORVASC PO (11:53)
[2017-05-11] MEDS ORDERED: DULOXETINE HCL60 M1 PO (11:53)
[2017-05-11] MEDS ORDERED: ALLERGY RELIEF10 M1 PO (11:53)
[2017-05-11] MEDS ORDERED: MAGNESIUM400 MG PO (11:53)
[2017-05-11] MEDS ORDERED: NEXIUM PO (11:54)
[2017-05-11] MEDS ORDERED: ASPIRIN81 M2 PO (11:54)
[2017-05-11] MEDS ORDERED: MIRALAX17 GM PO (11:54)
[2017-05-11] MEDS ORDERED: DITROPAN5 MG PO (11:55)
[2017-05-11] MEDS ORDERED: ARANESP (11:55)
[2017-05-11] MEDS ORDERED: NEURONTIN100 MG PO (11:55)
[2017-05-11] MEDS ORDERED: RANITIDINE HCL150 M1 PO (11:55)
[2017-05-11] MEDS ORDERED: LINZESS145 MCG PO (11:55)
[2017-05-11] MEDS ORDERED: LASIX80 MG PO (11:56)
[2017-05-11] MEDS ORDERED: AMANTADINE100 M1 PO (11:58)
[2017-05-11] MEDS ORDERED: LOPRESSOR PO (11:58)
[2017-05-11] MEDS ORDERED: STOOL SOFTENER50 MG PO (11:58)
[2017-05-11] MEDS ORDERED: CEFDINIR300 M2 PO (11:59)
[2017-05-11] MEDS ORDERED: KEPPRA250 MG PO (11:59)
[2017-05-11] MEDS ORDERED: ZOCOR-BORROW, D10 MG PO (12:00)
[2017-05-11] MEDS ORDERED: DESYREL50 MG PO (12:00)
[2017-05-11] MEDS ORDERED: SEROQUEL PO (12:00)
[2017-05-11] MEDS ORDERED: DULCOLAX5 M1 PO (12:00)
[2017-05-11] MEDS ORDERED: PERCOCET5/325 PO (12:01)
[2017-05-11] MEDS ORDERED: MILK OF MAGNESIA PO (12:01)
[2017-05-11] MEDS ORDERED: IPRAT-ALBUT 0.5-3 ML NEB (12:01)
[2017-05-11] MEDS ORDERED: ALPRAZOLAM0.25 MG PO (12:02)
[2017-05-11] MEDS ORDERED: ATHENOL325 MG PO (12:02)
[2017-05-11] MEDS ORDERED: ALBUTEROL 0.5ML NEB (12:03)
[2017-05-11] MEDS ORDERED: NOVOLOG100 UNITS/ SUBQ (12:03)
[2017-05-11] MEDS ORDERED: LEVEMIR SUBQ (12:04)
[2017-05-12 05:40] LABS: HEMATOCRIT 29.3 % (35.0-45.0); HEMOGLOBIN 9.6 gm/dL (12.0-16.0); RED BLOOD COUNT 3.44 X10e (3.90-5.30); RED CELL DISTRIBUTION WIDTH 20.6 % (11.0-15.5); WHITE BLOOD COUNT 6.7 X10e3 (4.0-10.5)
[2017-05-12 06:22] LABS: BUN/CREATININE RATIO 16.06; CALCIUM SERUM 9.2 mg/dL (8.4-10.2); CREATININE SERUM 3.3 mg/dL (0.6-1.4); GLOM FILT RATE Estimated 14.8 mL/min (>60); POTASSIUM 3.7 mmol/L (3.5-5.1)
[2017-05-13 05:40] LABS: HEMATOCRIT 28.7 % (35.0-45.0); HEMOGLOBIN 9.4 gm/dL (12.0-16.0); MEAN CELL VOLUME 86.1 FL (83-96); MEAN CORPUSCULAR HEMOGLOBIN 28.2 PG (28-34); MEAN CORPUSCULAR HGB CONC 32.7 g/dL (30-36); RED BLOOD COUNT 3.34 X10e (3.90-5.30); RED CELL DISTRIBUTION WIDTH 20.3 % (11.0-15.5); WHITE BLOOD COUNT 6.6 X10e3 (4.0-10.5)
[2017-05-13 07:25] LABS: BUN/CREATININE RATIO 16.57; CALCIUM SERUM 9.1 mg/dL (8.4-10.2); CREATININE SERUM 3.5 mg/dL (0.6-1.4); GLOM FILT RATE Estimated 13.7 mL/min (>60); POTASSIUM 4.1 mmol/L (3.5-5.1)
[2017-05-14 06:37] LABS: HEMATOCRIT 27.2 % (35.0-45.0); MEAN CELL VOLUME 85.3 FL (83-96); MEAN CORPUSCULAR HEMOGLOBIN 28.1 PG (28-34); MEAN PLATELET VOLUME 7.8 FL (6.5-11.5); RED BLOOD COUNT 3.19 X10e (3.90-5.30); RED CELL DISTRIBUTION WIDTH 19.8 % (11.0-15.5); WHITE BLOOD COUNT 5.3 X10e3 (4.0-10.5)
[2017-05-14 06:53] LABS: BUN/CREATININE RATIO 18.06; CALCIUM SERUM 8.6 mg/dL (8.4-10.2); CREATININE SERUM 3.1 mg/dL (0.6-1.4); GLOM FILT RATE Estimated 15.9 mL/min (>60); MAGNESIUM 2.1 mg/dL (1.6-3.0); PHOSPHOROUS 3.7 mg/dL (2.5-4.6); POTASSIUM 4.2 mmol/L (3.5-5.1)
[2017-05-19] MEDS ORDERED: SIMVASTATIN10 MG PO (11:06)
[2017-05-19] MEDS ORDERED: FUROSEMIDE40 MG PO (11:07)
[2017-05-31] MEDS ORDERED: LEVEMIR FL100 UNIT/1 SUBQ (11:00)
[2017-05-31] MEDS ORDERED: PERCOCET10 PO (11:01)
[2017-05-31] MEDS ORDERED: IPRAT-ALBUT 0.5-3 ML NEB (11:01)
[2017-05-31] MEDS ORDERED: MILK OF MAGNESIA PO (11:01)
[2017-05-31] MEDS ORDERED: ALBUTEROL 0.5ML NEB (11:01)
[2017-05-31] MEDS ORDERED: LEVAQUIN PO (11:02)
[2017-05-31] MEDS ORDERED: SEROQUEL PO (11:02)
[2017-05-31] MEDS ORDERED: DESYREL50 MG PO (11:02)
[2017-05-31] MEDS ORDERED: FLOMAX0.4 M1 PO (11:02)
[2017-05-31] MEDS ORDERED: ZOCOR PO (11:02)
[2017-05-31] MEDS ORDERED: NOVOLOG100 U/ML SUBQ (11:02)
[2017-05-31] MEDS ORDERED: FLAGYL PO (11:03)
[2017-05-31] MEDS ORDERED: ALPRAZOLAM0.25 MG PO (11:03)
[2017-05-31] MEDS ORDERED: ACETAMINOPHEN650 M3 PO (11:03)
[2017-05-31] MEDS ORDERED: FUROSEMIDE40 MG PO (11:04)
[2017-05-31] MEDS ORDERED: LEVETIRACETAM500 M1 PO (11:04)
[2017-05-31] MEDS ORDERED: LOPRESSOR PO (11:04)
[2017-05-31] MEDS ORDERED: DOC-Q-LACE100 MG PO (11:04)
[2017-05-31] MEDS ORDERED: ALLERCLEAR10 MG PO (11:05)
[2017-05-31] MEDS ORDERED: IMDUR PO (11:05)
[2017-05-31] MEDS ORDERED: NORVASC PO (11:05)
[2017-05-31] MEDS ORDERED: DULOXETINE HCL60 MG PO (11:05)
[2017-05-31] MEDS ORDERED: ALDACTONE PO (11:05)
[2017-05-31] MEDS ORDERED: NEURONTIN100 MG PO (11:06)
[2017-05-31] MEDS ORDERED: ARANESP SUBQ (11:06)
[2017-05-31] MEDS ORDERED: DITROPAN XL PO (11:07)
[2017-05-31] MEDS ORDERED: LINZESS145 MCG PO (11:07)
[2017-05-31] MEDS ORDERED: MAGNESIUM400 MG PO (11:07)
[2017-05-31] MEDS ORDERED: TRADJENTA5 MG PO (11:07)
[2017-05-31] MEDS ORDERED: MIRALAX17 GM PO (11:07)
[2017-05-31] MEDS ORDERED: AMANTADINE100 M1 PO (11:07)
[2017-05-31] MEDS ORDERED: ACID CONTROL150 M1 PO (11:08)
[2017-05-31] MEDS ORDERED: ESOMEPRAZOLE MA20 MG PO (11:08)
[2017-05-31] MEDS ORDERED: CALCIUM ACETAT667 MG PO (11:08)
[2017-05-31] MEDS ORDERED: ST JOSEPH ASPIR81 MG PO (11:08)
[2017-05-31] MEDS ORDERED: CLOPIDOGREL75 MG PO (11:08)
== END 2017-05-14 13:20 | DRG 694 ==
LOC: CED 08:35 → CEDOF 13:22 → C2A 14:15 → CEDOF 14:15 → C3A PCU 20:27 → C2A 05-12 18:05 → C3A PCU 05-12 18:05 → C2A 05-14 13:20
PROVIDERS: Internal Medicine; Internal Medicine Nephrology; Nurse Practitioner
DX: N20.1 Calculus of ureter (principal); J96.10 Chronic respiratory failure, unspecified whether with hypoxia or hypercapnia; I13.0 Hypertensive heart and chronic kidney disease with heart failure and stage 1 through stage 4 chronic kidney disease, or unspecified chronic kidney disease; N18.4 Chronic kidney disease, stage 4 (severe); R65.10 Systemic inflammatory response syndrome (SIRS) of non-infectious origin without acute organ dysfunction; N17.9 Acute kidney failure, unspecified; I50.32 Chronic diastolic (congestive) heart failure; E11.22 Type 2 diabetes mellitus with diabetic chronic kidney disease; R33.9 Retention of urine, unspecified; I25.10 Atherosclerotic heart disease of native coronary artery without angina pectoris; Z86.14 Personal history of Methicillin resistant Staphylococcus aureus infection; F32.9 Major depressive disorder, single episode, unspecified; K59.09 Other constipation; E66.01 Morbid (severe) obesity due to excess calories; Z98.51 Tubal ligation status; Z79.82 Long term (current) use of aspirin; N20.0 Calculus of kidney; G40.909 Epilepsy, unspecified, not intractable, without status epilepticus; Z87.891 Personal history of nicotine dependence; M62.3 Immobility syndrome (paraplegic); R31.0 Gross hematuria; Z68.35 Body mass index [BMI] 35.0-35.9, adult; G47.33 Obstructive sleep apnea (adult) (pediatric); D63.1 Anemia in chronic kidney disease; Z79.4 Long term (current) use of insulin; E11.42 Type 2 diabetes mellitus with diabetic polyneuropathy; E11.65 Type 2 diabetes mellitus with hyperglycemia; N39.41 Urge incontinence; E78.5 Hyperlipidemia, unspecified; K21.9 Gastro-esophageal reflux disease without esophagitis; B35.9 Dermatophytosis, unspecified
CPT/HCPCS: 36415; 71020; 74176; 80048; 80053; 81003; 82553; 82947; 83036; 83605; 83690; 83735; 83880; 84100; 84484; 85025; 85027; 86334; 87040; 87086; 89190; 93005; 94640; 94660; 94760; 96361; 96365; 97162; 97165; 99285; G8978-GP; G8979-GP; G8980-GP; G8987-GO; G8988-GO; G8989-GO; J1650; J1815; J1956; J2543

== ENCOUNTER → 2017-05-25 | Day surgery (SDC) | payer MEDICARE, OTHER ==
[~2017-05-25] MED LIST changes: +ACID CONTROL150 M1 PO; +ALDACTONE PO; +ALLERGY RELIEF10 M1 PO; +ARANESP SUBQ; +ATHENOL325 MG PO; +CEFDINIR300 M2 PO; +DESYREL50 MG PO; +DITROPAN XL PO; +DITROPAN5 MG PO; +DULCOLAX5 M1 PO; +FLAGYL PO; +KEPPRA250 MG PO; +LEVAQUIN PO; +LEVEMIR FL100 UNIT/1 SUBQ; +LINZESS145 MCG PO; +NOVOLOG100 UNITS/ SUBQ; +PERCOCET10 PO; +RANITIDINE HCL150 M1 PO; +SIMVASTATIN10 MG PO; +ST JOSEPH ASPIR81 MG PO; +STOOL SOFTENER50 MG PO
--- NOTE | ~2017-05-25 | OR ---
Unit #: [id number] #: [id number] Patient: SIMON BERNSTEIN [id number] [address] [address] [id number] MR#: [id number] NAME: SIMON BERNSTEIN ROOM: Date of Procedure: 05/25/2017 Admission Date: 05/25/2017 Surgeon: Ignacio Merritt Jr., M.D. : 1960 Attending Physician: Ignacio Merritt Jr., M.D. Primary Care Physician: Edgar Goodrich M.D. OPERATIVE REPORT INDICATIONS FOR PROCEDURE The patient is a 57-year-old white female, recently presented to the office complaining of rectal bleeding, mid epigastric abdominal pain, heme-positive stools with anemia, and a small cyst of the sacral area. It was felt that she needed upper and lower endoscopy as well as removal of the cyst. She is brought in this time at her request for this procedure. PREOPERATIVE DIAGNOSES Small cyst of the sacral area with abdominal pain and rectal bleeding and heme-positive stools with anemia. POSTOPERATIVE DIAGNOSIS Small cyst of the sacral area with abdominal pain and rectal bleeding and heme-positive stools with anemia. On upper endoscopy, she was noted to have evidence of some mild distal esophagitis without stenosis and mild gastritis and on colonoscopy to the cecum, the colonoscopy was not remarkable except for noting some hemorrhoids. ANESTHESIA MAC anesthesia with supplemental 0.5% Marcaine with epinephrine locally. PROCEDURES PERFORMED Flexible fiberoptic esophagogastroduodenoscopy and flexible colonoscopy to the cecum and excision of sacral cyst. DESCRIPTION OF PROCEDURE The patient was positioned in Martínez position with left side down. After being given MAC anesthesia, the Olympus XQ scope was passed in the proximal esophagus. The esophagus was examined. There was no evidence of any significant esophagitis except for in the area of the GE junction, where there was 1+ distal esophagitis. The scope was advanced through the GE junction, no evidence of any stenosis. The scope was advanced in the cardia, fundic, and antral region of the stomach and retroflexed back up to the area of the cardia. There was no evidence of any gastric ulcer disease, but there were some patchy areas of mild gastritis. The scope was advanced through the pylorus and the duodenal bulb and down to the second portion of the duodenum. The entire duodenal portion examination was within normal limits. The scope was slowly removed. The patient repositioned for colonoscopy. Digital rectal examination was performed, which revealed no palpable mass or tenderness. No blood or stool within the rectal ampulla. The Olympus colonoscope was advanced through the anal Unit #: [id number] #: [id number] Patient: SIMON BERNSTEIN canal up the rectum and retroflexed down to the area of the anorectal region. There was no evidence of any fissures. There were some internal hemorrhoids present. The scope was then straightened and advanced up in the rectosigmoid, in the sigmoid and descending colon areas, where there was liquid stool present. The scope was then advanced around the splenic flexure and the transverse colon, around hepatic flexure and ascending colon, down to the area of the cecum. The light from the tip of the scope could be seen transilluminating through right lower quadrant abdominal wall area. Multiple attempts in advancing the scope up the distal ileum were unsuccessful. The scope was slowly removed. There were no tumors, polyps, cancer, or AVMs. No evidence of any colitis, diverticulosis, or diverticulitis. The caliber of the colon appeared normal throughout without evidence of narrowing or obstruction. The scope was removed. The patient was then re-prepped and draped in routine fashion for excision of the cyst of her sacral area. She was locally anesthetized with 0.5% Marcaine with epinephrine and an elliptical incision was made around the cyst being totally excised from the surrounding tissue. This appeared to be a cyst that could have been a skin lesion itself. After it was completely removed, hemostasis was achieved with Bovie cautery. The lesion was sent to pathology and the deeper tissue approximated with interrupted 3-0 Vicryl sutures. The skin edges were approximated with stainless-steel skin clips and skin stapling device. Sterile compression dressing was applied externally. Estimated blood loss for the entire procedure less than 20 mL. The patient received less than 1000 mL crystalloid solution during the procedure. Sponges and instrument counts were correct x3. No drains used. No complications. The patient was taken to the recovery room with stable vital signs in satisfactory condition. Dictated by... Ignacio Merritt Jr., M.D. JMB/sonal TD: 05/25/2017 17:57 JOB #: [id number] CC: Edgar Goodrich M.D. OPERATIVE REPORT Page 1 of 1 X Ignacio Merritt MD PROCEDURE OPERATIVE NOTE
== END | disposition home or self-care (01) ==
LOC: CSUR 08:22
DX: K20.9 Esophagitis, unspecified (principal); K64.8 Other hemorrhoids; K29.70 Gastritis, unspecified, without bleeding; L85.9 Epidermal thickening, unspecified; L98.429 Non-pressure chronic ulcer of back with unspecified severity; L90.5 Scar conditions and fibrosis of skin; L08.9 Local infection of the skin and subcutaneous tissue, unspecified; J44.9 Chronic obstructive pulmonary disease, unspecified; I25.10 Atherosclerotic heart disease of native coronary artery without angina pectoris; J96.10 Chronic respiratory failure, unspecified whether with hypoxia or hypercapnia; K21.9 Gastro-esophageal reflux disease without esophagitis; I25.2 Old myocardial infarction; I10 Essential (primary) hypertension; E11.9 Type 2 diabetes mellitus without complications; E66.01 Morbid (severe) obesity due to excess calories; D64.9 Anemia, unspecified; F17.210 Nicotine dependence, cigarettes, uncomplicated; Z68.34 Body mass index [BMI] 34.0-34.9, adult; Z86.73 Personal history of transient ischemic attack (TIA), and cerebral infarction without residual deficits; Z79.02 Long term (current) use of antithrombotics/antiplatelets; Z79.82 Long term (current) use of aspirin; Z79.4 Long term (current) use of insulin; Z79.899 Other long term (current) drug therapy; Z95.5 Presence of coronary angioplasty implant and graft; Z98.890 Other specified postprocedural states; Z98.51 Tubal ligation status
CPT/HCPCS: 82947; 88305; J2250; J2405; J3010